=== PATIENT | female | born 1965 | race African-American/Black ===

== ENCOUNTER 2020-10-13 06:41 | Outpatient (CLI) | payer OTHER, SELFPAY ==
[2020-10-13 07:40] LABS: Alanine Aminotransferase 27 U/L (4-35); Albumin Level 4.2 g/dL (3.5-5.1); Alkaline Phosphatase 70 U/L (38-126); Anion Gap 5 mmol/L (8-16); Aspartate Amino Transferase 27 U/L (14-36); Bilirubin,Total 0.2 mg/dL (0.2-1.3); Blood Urea Nitrogen 23 mg/dL (7-17); Calcium 9.6 mg/dL (8.4-10.2); Carbon Dioxide 26 mmol/L (22-30); Chloride 108 mmol/L (98-107); Cholesterol 178 mg/dL (0-200); Estimated Glomerular Filt Rate 57; Glucose 104 mg/dL (65-105); HDL Direct 47 mg/dL; Potassium 4.3 mmol/L (3.4-5.0); Sodium 139 mmol/L (137-145); Triglycerides 96 mg/dL (<150)
[2020-10-13 07:46] LABS: Hemoglobin A1C 6.2 % (<5.7)
[2020-10-13 07:52] LABS: LDL Cholesterol Direct 97 mg/dL
[2020-10-16 03:18] LABS: Vitamin D 1,25 (OH)2 Total 55 pg/mL (18-72); Vitamin D2 1,25 (OH)2 43 pg/mL; Vitamin D3 1,25 (OH)2 12 pg/mL
== END 2020-10-13 06:42 | disposition home or self-care (01) ==
PROVIDERS: PCP Family Medicine; Visit Provider Family Medicine
DX: E55.9 Vitamin D deficiency, unspecified (principal); E66.9 Obesity, unspecified; K21.9 Gastro-esophageal reflux disease without esophagitis; Z79.899 Other long term (current) drug therapy; Z83.3 Family history of diabetes mellitus; R73.03 Prediabetes
CPT/HCPCS: 36415; 80053; 80061; 82652; 83036

== ENCOUNTER 2020-11-13 07:12 | Outpatient (CLI) | payer OTHER, SELFPAY | END 2020-11-13 07:13 | disposition home or self-care (01) | PROVIDERS: PCP Family Medicine; Visit Provider Student in an Organized Health Care Education/Training Program | DX: R39.9 Unspecified symptoms and signs involving the genitourinary system (principal) | CPT/HCPCS: 87086; 87088 ==

== ENCOUNTER 2021-02-11 11:20 | Outpatient (CLI) | payer OTHER, SELFPAY ==
[2021-02-11 12:44] LABS: Alanine Aminotransferase 26 U/L (4-35); Albumin Level 4.4 g/dL (3.5-5.1); Alkaline Phosphatase 75 U/L (38-126); Anion Gap 8 mmol/L (8-16); Aspartate Amino Transferase 28 U/L (14-36); Bilirubin,Total 0.4 mg/dL (0.2-1.3); Blood Urea Nitrogen 18 mg/dL (7-17); Calcium 9.5 mg/dL (8.4-10.2); Carbon Dioxide 25 mmol/L (22-30); Chloride 108 mmol/L (98-107); Cholesterol 178 mg/dL (0-200); Estimated Glomerular Filt Rate 57; Glucose 89 mg/dL (65-110); HDL Direct 41 mg/dL; Potassium 4.4 mmol/L (3.4-5.0); Sodium 141 mmol/L (137-145); Triglycerides 79 mg/dL (<150)
[2021-02-11 12:55] LABS: LDL Cholesterol Direct 93 mg/dL
[2021-02-11 13:38] LABS: Hemoglobin A1C 6.1 % (<5.7)
== END 2021-02-11 11:21 | disposition home or self-care (01) ==
PROVIDERS: PCP Family Medicine; Visit Provider Family Medicine
DX: E66.9 Obesity, unspecified (principal); R73.03 Prediabetes; E78.5 Hyperlipidemia, unspecified; Z79.899 Other long term (current) drug therapy
CPT/HCPCS: 36415; 80053; 80061; 83036

== ENCOUNTER 2021-04-04 08:19 | Outpatient (CLI) | payer OTHER, SELFPAY ==
--- NOTE | ~2021-04-04 | XR_ITS ---
XR tibia fibula LT 2V DATE: 04/04/2021 08:50 INDICATION: Lateral lumbar and lower leg pain TECHNIQUE: AP and lateral views COMPARISON: None FINDINGS: No fracture or dislocation, periosteal reaction or bone destruction. Normal alignment at th e knee and ankle joints. IMPRESSION: Negative Reviewed, dictated and finalized at location A. IMPRESSION: Negative
--- NOTE | ~2021-04-04 | XR_ITS ---
XR femur LT min 2V DATE: 04/04/2021 08:50 INDICATION: Lateral upper and lower leg pain TECHNIQUE: AP and lateral views COMPARISON: None FINDINGS: No fracture or dislocation, periosteal reaction or bone destruction. Normal alignment at th e left hip joint. IMPRESSION: Negative Reviewed, dictated and finalized at location A. IMPRESSION: Negative
== END 2021-04-04 08:20 | disposition home or self-care (01) ==
LOC: ANHIMG 08:22
PROVIDERS: PCP Family Medicine; Visit Provider Family Medicine
DX: M79.605 Pain in left leg (principal)
CPT/HCPCS: 73552; 73590

== ENCOUNTER 2021-06-23 07:05 | Outpatient (CLI) | payer OTHER, SELFPAY ==
[2021-06-23 07:39] LABS: Hematocrit 39.8 % (37.0-47.0); Hemoglobin 12.8 g/dL (12.0-15.0); Mean Corpuscular HGB Conc 32.2 g/dl (32-36); Mean Corpuscular Hemoglobin 27.2 pg (26-34); Mean Corpuscular Volume 84.5 fl (80-100); Platelet Count Result 273 k/mm3 (150-375); Red Blood Count 4.71 M/mm3 (4.2-5.4); Red Cell Distribution Width 16.6 % (11.5-14.5); White Blood Count 8.1 K/mm3 (4.5-10.0)
[2021-06-23 07:55] LABS: Alanine Aminotransferase 24 U/L (4-35); Albumin Level 4.4 g/dL (3.5-5.1); Alkaline Phosphatase 75 U/L (38-126); Anion Gap 9 mmol/L (8-16); Aspartate Amino Transferase 29 U/L (14-36); Bilirubin,Total 0.4 mg/dL (0.2-1.3); Blood Urea Nitrogen 15 mg/dL (7-17); Calcium 9.6 mg/dL (8.4-10.2); Carbon Dioxide 22 mmol/L (22-30); Chloride 109 mmol/L (98-107); Cholesterol 174 mg/dL (0-200); Estimated Glomerular Filt Rate > 60; Glucose 105 mg/dL (65-110); HDL Direct 42 mg/dL; Potassium 4.1 mmol/L (3.4-5.0); Sodium 140 mmol/L (137-145); Triglycerides 71 mg/dL (<150)
[2021-06-23 08:06] LABS: LDL Cholesterol Direct 104 mg/dL
[2021-06-23 08:22] LABS: Hemoglobin A1C 6.1 % (<5.7)
== END 2021-06-23 07:06 | disposition home or self-care (01) ==
PROVIDERS: PCP Family Medicine; Visit Provider Family Medicine
DX: E78.5 Hyperlipidemia, unspecified (principal); R73.03 Prediabetes; E66.9 Obesity, unspecified
CPT/HCPCS: 36415; 80053; 80061; 83036; 85027

== ENCOUNTER 2021-08-20 15:14 | Outpatient (CLI) | payer OTHER, SELFPAY ==
--- NOTE | ~2021-08-20 | MM_ITS ---
EXAMINATION: MM screening navarro BI w tomy HISTORY: Screening TECHNIQUE: Craniocaudal and mediolateral oblique 3-D tomosynthesis images were obtained and synthetic 2-D images were generated. CAD analysis was submitted and interpreted. COMPARISON: No prior mammogram is available for comparison at this institution. BREAST PARENCHYMAL COMPOSITION: The breasts are almost entirely fatty. FINDINGS: There is no evidence of suspicious mass, calcification, or architectural distortion to sugg est malignancy in either breast. There has been no suspicious interval change. IMPRESSION: 1. No mammographic evidence of malignancy. 2. Recommend routine screening mammography in one year. BI-RADS Category 1: Negative Reviewed, dictated and finalized at location A. IRATORY COORDINATOR
== END 2021-08-20 15:15 | disposition home or self-care (01) ==
LOC: ANHIMG 15:15
PROVIDERS: PCP Family Medicine; Visit Provider Family Medicine
DX: Z12.31 Encounter for screening mammogram for malignant neoplasm of breast (principal)
CPT/HCPCS: 77063; 77067

== ENCOUNTER 2021-10-23 06:37 | Outpatient (CLI) | payer OTHER, SELFPAY ==
[2021-10-23 08:01] LABS: Alanine Aminotransferase 25 U/L (6-35); Albumin Level 3.9 g/dL (3.5-5.1); Alkaline Phosphatase 72 U/L (38-126); Anion Gap 5 mmol/L (8-16); Aspartate Amino Transferase 29 U/L (14-36); Bilirubin,Total 0.3 mg/dL (0.2-1.3); Blood Urea Nitrogen 15 mg/dL (7-17); Calcium 8.7 mg/dL (8.4-10.2); Carbon Dioxide 25 mmol/L (22-30); Chloride 109 mmol/L (98-107); Cholesterol 172 mg/dL (0-200); Estimated Glomerular Filt Rate > 60; Glucose 96 mg/dL (65-110); HDL Direct 42 mg/dL; Sodium 139 mmol/L (137-145); Triglycerides 72 mg/dL (<150)
[2021-10-23 08:12] LABS: LDL Cholesterol Direct 94 mg/dL
== END 2021-10-23 06:38 | disposition home or self-care (01) ==
LOC: ANHLAB 06:40
PROVIDERS: PCP Family Medicine; Visit Provider Family Medicine
DX: E66.9 Obesity, unspecified (principal); E78.5 Hyperlipidemia, unspecified; R73.03 Prediabetes; R25.2 Cramp and spasm
CPT/HCPCS: 36415; 80053; 80061; 83036; 83735

== ENCOUNTER 2021-11-26 07:42 | Outpatient (CLI) | payer OTHER, SELFPAY ==
--- NOTE | 2021-12-07 11:45 | WPDHOMESLEEP ---
Sleep Study - Home Unattended Date of Study: 11/26/21 Ordering Provider: Ting Feliz DO Interpreting Provider: Payton Perez DO Home Sleep Study Type: Watch PAT Height: 1.5 m Weight: 104.326 kg Body Mass Index: 46.4 Neck Circumference (inches): 15 Reason for Sleep Study Wakes up from snoring, Gasping for air throughout the night. Sleep History The patient is a 56-year-old female with GERD who had a home sleep test ordered by her primary care physician for evaluation of sleep apnea. The patient occasionally awakens from sleep short of breath. She frequently awakens at night with heartburn, belching or cough. She constantly snores loud enough that others complain. She frequently has trouble sleeping when he has a cold. She occasionally wakes up gasping for air throughout the night. He frequently has breathing problems at night observed by herself or others. She occasionally sweats excessively at night. She denies having heart palpitations or irregular heartbeats during the night. She rarely falls asleep during the day but never while driving. She denies sleep paralysis and cataplexy. She rarely has trouble at school or work due to sleepiness. She denies feeling afraid of going to sleep. She rarely has nightmares. She occasionally remembers her dreams. She frequently has thoughts racing through her mind. She rarely feels sad or depressed. She frequently has anxiety. She occasionally has muscular tension. She denies noticing parts of her body jerk. She denies kicking during the night. She occasionally has crawling and aching feelings in her legs as well as leg pain during the night. She denies grinding her teeth during sleep and awakening with morning jaw pain. She denies being bothered by pain during the day and being awakened by pain during the night. She occasionally wakes up feeling stiff morning. She occasionally wakes up with sore achy muscles. She denies waking up with pain in the neck, spine and other joints. She goes to bed at 9:00 p.m. on weekdays and 10:00 p.m. on the weekends. The amount of time it takes for her to fall asleep is variable. She wakes up 4-5 times throughout the night for unknown reasons. It takes her 10-15 minutes to fall back asleep. She wakes up at 4:50 a.m. on weekdays and 7:00 a.m. on the weekends. She typically gets 7-8 hours of sleep per night. She will stay in bed for 10-15 minutes after waking up in the morning. He currently lives with her . She does not consume any caffeinated beverages within 2 hours of bedtime. She does not engage in physical exercise bedtime. She will watch television before falling asleep. She does not take naps in the afternoon or the evening. She denies tobacco use. She does drink alcohol. [facility] Past Medical History Medical History History of miscarriage Torn ligament ankle, Repaired. Surgical History Surgical History History of breast biopsy History of delivery History of dilation and curettage Rozet teeth removed Family History Family History Father No problems noted. Mother Diabetes mellitus Sibling Diabetes mellitus Social History Social History Alcohol intake: current Medications Home Medications Medication Instructions Recorded Confirmed Type cholecalciferol (vitamin D3) 25 25 mcg PO DAILY 11/12/20 10/29/21 History mcg (1,000 unit) capsule cranberry 400 mg capsule 400 mg PO DAILY 11/12/20 10/29/21 History multivitamin with minerals-folic tablet PO 06/22/21 10/29/21 History acid 200 mcg chewable tablet (Women's Multivitamin Gummies) omeprazole 20 mg capsule,delayed 20 mg PO DAILY #90 caps 06/22/21 10/29/21 Rx release fluconazole 150 mg ta
[2021-12-07 13:37] VITALS: BMI 46.4
== END 2021-11-27 11:14 | disposition home or self-care (01) ==
LOC: ANHCSM 07:43
PROVIDERS: PCP Family Medicine; Visit Provider Family Medicine
DX: G47.33 Obstructive sleep apnea (adult) (pediatric) (principal)
CPT/HCPCS: 95800

== ENCOUNTER 2022-01-29 00:14 | Day surgery (SDC) | payer OTHER, SELFPAY ==
[2022-01-20 09:46] VITALS: BMI 46.5
[2022-01-29 07:04] VITALS: BMI 47.0
[2022-01-29 07:06] VITALS: BP 147/93; PULSE 77; RESP 16; TEMP 36.3; O2SAT 100
[2022-01-29] MEDS: LACTATED RINGERS 1,000 ML 150 ML IV CONT (07:14)
--- NOTE | 2022-01-29 07:31 | P.PNAN_ITS ---
Anes - Initial Pre Proc Eval Procedure: Operation Date: 01/29/22 08:00 Proposed Procedures p Screening Colonoscopy - Camden Sims MD Date/Time: 01/29/22 07:31 Surgeon: Camden Sims MD Pre Op Diagnosis: neoplasm screening Patient Data Age: 56 Gender: F Height: 1.5 m Weight: 105.5 kg Last Vital Signs Temp 97.3 F L 01/29/22 07:06 Pulse 77 01/29/22 07:06 Resp 16 01/29/22 07:06 BP 147/93 H 01/29/22 07:06 Pulse Ox 100 01/29/22 07:06 Allergies Allergy/AdvReac Type Severity Reaction Status Date / Time No Known Allergies Allergy Verified 01/20/22 09:45 Home Medications Medication Instructions Recorded Confirmed Type sodium sul 1.479 gram-potas ch See Rx Instructions PO PER PKG DIR 11/19/21 Rx 0.188 gram-magnes sul 0.225 gram #24 tabs tablet (Sutab) omeprazole 20 mg capsule,delayed 20 mg PO DAILY 01/20/22 01/20/22 History release Patient hx anesthesia problems: none Family hx anesthesia problems: none Results Review: All pre-operative results and documents have been reviewed as part of the pre- operative evaluation. [facility] Past Medical History Medical History History of miscarriage Torn ligament ankle, Repaired. Surgical History Surgical History History of breast biopsy History of delivery History of dilation and curettage Grandy teeth removed Family History Family History Father No problems noted. Mother Diabetes mellitus Sibling Diabetes mellitus Social History Social History Smoking status: Never smoker Alcohol intake: current Drinks per week: 2 Substance use type: does not use Living arrangements: with family Spiritual care concerns: No Anes - Eval Final PreProcedure Day of Procedure 01/29/22 07:31 Patient weight: morbidly obese Heart: regular rate and rhythm Lungs: clear to auscultation Airway: Mallampati scale class III Neurological: alert and oriented Last oral intake: >/= 8 hours ASA classification: III Emergent: no Anesthetic plan: proceed Anesthesia type and monitoring: general GIVS and standard monitoring Results Review: All pre-operative results and documents have been reviewed as part of the pre- operative evaluation. Informed Consent: The patient's anesthetic plan and its attendant risks and benefits were discussed with the patient/family/POA. Questions were solicited and answers provided to the satisfaction of the patient/family/POA.
--- NOTE | 2022-01-29 07:46 | PM.HPGS ---
History of Present Illness History of Present Illness Consent: Risks, benefits, and alternatives have been discussed and questions answered. Patient agrees to proceed with procedure. Chief complaint: neoplasm screening Narrative: Jacquelyn Novak is a 56 year old female here for screening colonoscopy, last one 10 years ago Review of Systems Constitutional: Constitutional: Denies headache(s) and Denies weakness Eyes: Eyes: Denies blurry vision ENT: Reports Normal hearing present, Denies headache(s) and Denies neck pain Cardiovascular: Cardiovascular: Denies chest pain and Denies dyspnea Respiratory: Respiratory: Denies dyspnea Gastrointestinal: Gastrointestinal: Reports no additional gastrointestinal complaints Genitourinary: Genitourinary: Denies dysuria Musculoskeletal: Musculoskeletal: Denies neck pain Integumentary/Breasts: Skin/Breast: Denies dry skin Neurologic: Reports Normal hearing present, Denies headache(s) and Denies weakness Psychiatric: Psychiatric: Denies anxiety Endocrine: Endocrine: Denies change in body appearance Hematologic/Lymphatic: Hematologic/Lymphatic: Denies easy bleeding Allergic/Immunologic: Allergic/Immunologic: Denies urticaria PMFSH Past Medical History Medical History History of miscarriage Torn ligament ankle, Repaired. Surgical History Surgical History History of breast biopsy History of delivery History of dilation and curettage [place] teeth removed Family History Family History Father No problems noted. Mother Diabetes mellitus Sibling Diabetes mellitus Social History Social History Smoking status: Never smoker Alcohol intake: current Drinks per week: 2 Substance use type: does not use Living arrangements: with family Spiritual care concerns: No Meds Home Medications and Allergies Home Medications Medication Instructions Recorded Confirmed Type sodium sul 1.479 gram-potas ch See Rx Instructions PO PER PKG DIR 11/19/21 Rx 0.188 gram-magnes sul 0.225 gram #24 tabs tablet (Sutab) omeprazole 20 mg capsule,delayed 20 mg PO DAILY 01/20/22 01/20/22 History release Allergies Allergy/AdvReac Type Severity Reaction Status Date / Time No Known Allergies Allergy Verified 01/20/22 09:45 Vital Signs Vital Signs - 24 hr 01/29/22 07:06 Temperature 97.3 F L Pulse Rate 77 Respiratory Rate 16 Blood Pressure 147/93 H Pulse Oximetry 100 Exam Const: General: comfortable and no acute distress HENMT: General nose exam: Normal nares present Eyes: General: appearance normal, both eyes and all related structures Neck: Neck: no JVD Resp: Auscultation: clear to auscultation bilaterally Cardio: Rate: regular rate Rhythm: regular rhythm GI: Inspection: non-distended GI Palp: Yes Soft to palpation Skin: General skin exam: normal color Neuro: General: gait normal Speech: normal speech Extrem: General: normal to inspection Psych: Mental Status: mental status grossly normal Assessment and Plan Assessment and plan (1) Encounter for screening colonoscopy: Code(s): Z12.11 - Encounter for screening for malignant neoplasm of colon Status: Acute Assessment and Plan: colonoscopy
[2022-01-29 08:07] VITALS: BP 105/80; PULSE 78; RESP 16; O2SAT 97
[2022-01-29 08:17] VITALS: BP 107/80; PULSE 76; RESP 16; O2SAT 100
[2022-01-29 08:27] VITALS: BP 150/84; PULSE 70; RESP 16; O2SAT 100
--- NOTE | 2022-01-29 08:39 | SUR.PHASEII ---
Patient c/o left shoulder pain. Denies pain in chest but states shoulder hurts where she was laying on her side in procedure. VSS. Sinus rhythm noted. Patient denies other complaints. Notified Dr. Zheng and he assessed patient. Patient declined pain medication. States she wants to go home and see if repositioning and walking will help.
== END 2022-01-29 08:48 | disposition home or self-care (01) ==
PROVIDERS: PCP Family Medicine; Visit Provider Internal Medicine Gastroenterology
PROC: 0DJD8ZZ Inspection of Lower Intestinal Tract, Via Natural or Artificial Opening Endoscopic (ICD-10-PCS; CPT 45378; principal; 2022-01-29 08:00)
DX: Z12.11 Encounter for screening for malignant neoplasm of colon (principal); K64.8 Other hemorrhoids; E66.01 Morbid (severe) obesity due to excess calories; Z68.42 Body mass index [BMI] 45.0-49.9, adult
CPT/HCPCS: 45378; J2704; J7120

== ENCOUNTER 2022-02-19 08:52 | Outpatient (CLI) | payer OTHER, SELFPAY ==
[2022-02-19 20:37] LABS: Alanine Aminotransferase 34 U/L (6-35); Albumin Level 4.3 g/dL (3.5-5.1); Alkaline Phosphatase 84 U/L (38-126); Anion Gap 10 mmol/L (8-16); Aspartate Amino Transferase 36 U/L (14-36); Bilirubin,Total 0.3 mg/dL (0.2-1.3); Blood Urea Nitrogen 15 mg/dL (7-17); Calcium 9.9 mg/dL (8.4-10.2); Carbon Dioxide 26 mmol/L (22-30); Chloride 107 mmol/L (98-107); Cholesterol 161 mg/dL (0-200); Estimated Glomerular Filt Rate > 60; Glucose 91 mg/dL (65-110); HDL Direct 36 mg/dL; Sodium 143 mmol/L (137-145); Triglycerides 87 mg/dL (<150)
[2022-02-19 20:53] LABS: LDL Cholesterol Direct 84 mg/dL
== END 2022-02-19 08:53 | disposition home or self-care (01) ==
LOC: ANHGOSHLAB 08:54
PROVIDERS: PCP Family Medicine; Visit Provider Family Medicine
DX: E78.5 Hyperlipidemia, unspecified (principal); R73.03 Prediabetes; Z79.899 Other long term (current) drug therapy
CPT/HCPCS: 36415; 80053; 80061; 83036

== ENCOUNTER 2022-03-31 12:48 | Outpatient (CLI) | payer OTHER, SELFPAY | END 2022-03-31 12:49 | disposition home or self-care (01) | PROVIDERS: PCP Family Medicine; Visit Provider Nurse Practitioner | DX: R33.9 Retention of urine, unspecified (principal) | CPT/HCPCS: 87077; 87086; 87186 ==

== ENCOUNTER → 2022-05-05 13:56 | Outpatient (CLI) | payer OTHER, SELFPAY ==
--- NOTE | ~2022-05-05 | XR_ITS ---
EXAMINATION: XR chest 2V 05/05/2022 14:34 INDICATION: Hemoptysis PROCEDURE: 2 view chest COMPARISON: 02/13/2020 FINDINGS: The lungs are clear. The cardiomediastinal silhouette is within normal limits. There are no pleural effusions. There is no pneumothorax suspected. IMPRESSION: 1: NO ACUTE CARDIOPULMONARY DISEASE. Reviewed, dictated and finalized at location B. [employer]
== END ==
PROVIDERS: PCP Family Medicine; Visit Provider Family Medicine
DX: R04.2 Hemoptysis (principal)
CPT/HCPCS: 71046

== ENCOUNTER 2022-07-14 13:08 | Outpatient (CLI) | payer OTHER, SELFPAY ==
--- NOTE | ~2022-07-14 | XR_ITS ---
EXAMINATION: XR elbow RT min 3V DATE: 07/14/2022 13:16 INDICATION: Right elbow pain. TECHNIQUE: 4 views of right elbow were obtained. COMPARISON: None. FINDINGS: Bone alignment is normal. No fracture. Joint spaces are normal. There is an enthesophyte at the sublime tubercle of proximal ulna. No elbow joint effusion. IMPRESSION: 1. No fracture. Reviewed, dictated and finalized at location A. HNUT GLAZIER IMPRESSION: 1. No fracture.
== END 2022-07-14 13:09 ==
PROVIDERS: PCP Family Medicine; Visit Provider Family Medicine
DX: M25.521 Pain in right elbow (principal)
CPT/HCPCS: 73080

== ENCOUNTER 2022-07-14 13:17 | Outpatient (CLI) | payer OTHER, SELFPAY ==
[2022-07-14 20:09] LABS: Alanine Aminotransferase 54 U/L (6-35); Albumin Level 3.9 g/dL (3.5-5.1); Alkaline Phosphatase 70 U/L (38-126); Anion Gap 5 mmol/L (8-16); Aspartate Amino Transferase 52 U/L (14-36); Bilirubin,Total 0.5 mg/dL (0.2-1.3); Blood Urea Nitrogen 12 mg/dL (7-17); Calcium 9.3 mg/dL (8.4-10.2); Carbon Dioxide 29 mmol/L (22-30); Chloride 109 mmol/L (98-107); Estimated Glomerular Filt Rate > 60; Glucose 89 mg/dL (65-110); Potassium 3.9 mmol/L (3.4-5.0); Sodium 143 mmol/L (137-145)
[2022-07-14 21:32] LABS: Hemoglobin A1C 5.6 % (<5.7)
== END 2022-07-14 13:18 | disposition home or self-care (01) ==
LOC: ANHGOSHLAB 13:18
PROVIDERS: PCP Family Medicine; Visit Provider Family Medicine
DX: R73.03 Prediabetes (principal); Z79.899 Other long term (current) drug therapy
CPT/HCPCS: 36415; 80053; 83036

== ENCOUNTER 2022-09-07 16:32 | Emergency (ER) | payer OTHER, SELFPAY ==
--- NOTE | ~2022-09-07 | XR_ITS ---
EXAMINATION: XR thoracic spine 2V DATE: 09/07/2022 17:08 INDICATION: Thoracic back pain TECHNIQUE: AP, lateral and lateral swimmer's views of the thoracic spine were obtained. COMPARISON: None. FINDINGS: Bone alignment is normal. There is no fracture. There is mild loss of intervertebral disc s pace height in the midthoracic spine. Small degenerative osteophytes project from the anterior endpla elena of multiple vertebral bodies. IMPRESSION: 1. Mild thoracic spondylosis without acute findings. Reviewed, dictated and finalized at location F.
[2022-09-07 16:39] VITALS: BP 126/88; PULSE 84; RESP 16; TEMP 36.9; O2SAT 100
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
== END 2022-09-07 17:40 | disposition home or self-care (01) ==
PROVIDERS: Emergency Provider Nurse Practitioner Family; PCP Family Medicine
DX: Z04.1 Encounter for examination and observation following transport accident (principal); M54.6 Pain in thoracic spine
CPT/HCPCS: 72070; 99213; G0463

== ENCOUNTER 2022-10-12 15:11 | Outpatient (CLI) | payer OTHER, SELFPAY ==
--- NOTE | ~2022-10-12 | MM_ITS ---
EXAMINATION: MM screening navarro BI w tomy HISTORY: Screening mammogram TECHNIQUE: Craniocaudal and mediolateral oblique 3-D tomosynthesis images were obtained and synthetic 2-D images were generated. CAD analysis was submitted and interpreted. COMPARISON: 08/20/2021 BREAST PARENCHYMAL COMPOSITION: The breasts are almost entirely fatty. FINDINGS: No suspicious mass, calcification, or architectural distortion are identified in either norbert ast to suggest malignancy. There has been no suspicious interval change. IMPRESSION: 1. No mammographic evidence of malignancy. 2. Recommend routine screening mammography in one year. BI-RADS Category 1: Negative Reviewed, dictated and finalized at location A.
== END 2022-10-12 15:12 | disposition home or self-care (01) ==
PROVIDERS: Visit Provider Family Medicine
DX: Z12.31 Encounter for screening mammogram for malignant neoplasm of breast (principal)
CPT/HCPCS: 77063; 77067

== ENCOUNTER 2022-12-28 08:54 | Outpatient (CLI) | payer OTHER, SELFPAY ==
[2022-12-28 20:45] LABS: Appearance Urine Turbid (Clear); Bacteria Urine None Seen /hpf; Bilirubin Urine Negative (Negative); Blood Urine Negative (Negative); Color Urine Yellow (Yellow); Glucose Urine UA Negative (Negative); Ketones Urine Negative (Negative); Leukocyte Esterase Ur Negative LEU/UL (Negative); Nitrate Urine Negative (Negative); Non Pathogenic Casts 0-2; Protein Urine Trace mg/dL (Negative); RBC Urine 0-2 /hpf (0-2); Squamous Epithelial Cell Urine Occasional /hpf (Few); Urobilinogen Urine 0.2 mg/dL (<2.0); WBC Urine 0-5 /hpf; pH Urine 5.5 (5.0-9.0)
[2022-12-28 20:49] LABS: Add Urine Microscopic? YES
== END 2022-12-28 08:55 | disposition home or self-care (01) ==
LOC: ANHGOSHLAB 08:56
PROVIDERS: PCP Family Medicine; Visit Provider Family Medicine
DX: M54.50 Low back pain, unspecified (principal); R39.9 Unspecified symptoms and signs involving the genitourinary system
CPT/HCPCS: 81001

== ENCOUNTER 2023-01-04 11:51 | Outpatient (CLI) | payer OTHER, SELFPAY ==
--- NOTE | ~2023-01-04 | MR_ITS ---
MRI of the lumbar spine Clinical History: Radiculopathy Technique: Axial T2-weighted images, and sagittal T1-weighted, T2-weighted, and and T2 fat-sat images were acquired. Findings: There is no fracture or subluxation of the lumbar spine. Vertebral bodies maintain normal h eight and line. No suspicious bone signal abnormality seen. At L1-L2, there is no disc bulge or herniation. There is minimal facet hypertrophy. No central canal stenosis or neural foraminal narrowing. At L2-L3, there is no disc bulge or herniation. There is minimal facet hypertrophy. No spinal canal s tenosis or neural foraminal narrowing. At L3-L4, there is no disc bulge or herniation. There is mild facet arthropathy. No central canal mala nosis or neural foraminal narrowing. At L4-L5, there is no disc bulge or herniation. There is moderate to advanced facet arthropathy. No c entral canal stenosis or neural foraminal narrowing. At L5-S1, there is minimal central disc bulge and moderate facet arthropathy. No central canal stenos is or neural foraminal narrowing. Paravertebral soft tissues are unremarkable. Impression: Minimal degenerative spondylosis, as above. Reviewed, dictated and finalized at location . Impression: Minimal degenerative spondylosis, as above.
== END 2023-01-04 11:52 ==
PROVIDERS: PCP Family Medicine
DX: M47.26 Other spondylosis with radiculopathy, lumbar region (principal)
CPT/HCPCS: 72148

== ENCOUNTER 2023-04-25 12:21 | Emergency (ER) | payer OTHER, SELFPAY ==
--- NOTE | 2023-04-25 12:23 | ED.ABDPAIN ---
HPI - Abdominal Pain General Chief Complaint: Nausea/Vomiting/Diarrhea Stated Complaint: Stomach pain;Nausea Time Seen by Provider: 04/25/23 12:22 Source: patient Mode of arrival: ambulatory Limitations: no limitations History of Present Illness HPI narrative: Jacqueline is a 57-year-old female patient presenting to the clinic today with complaints of abdominal pain and nausea since this morning. She reports she was having some sinus congestion and has taken Claritin and zinc and then began having nausea and vomiting. She reports she is having pain over the mid upper abdomen. Pain is cramping- rates it a 7-8/10 and it is constant. Denies any urinary symptoms or loose stools. Last BM was this morning- no blood in stool. No abdomen surgery in past besides c-sections. Related Data Allergies Allergy/AdvReac Type Severity Reaction Status Date / Time No Known Allergies Allergy Verified 04/25/23 12:48 Review of Systems Review of Systems: Pertinent positives per HPI. Patient denies any fever, chills, rash, headache, visual changes, dizziness, cough, runny nose, sore throat, shortness of breath, chest pain, palpitations, diarrhea, constipation, or any urinary issues. [facility] Past Medical History Medical History History of miscarriage Torn ligament ankle, Repaired. Surgical History Surgical History History of breast biopsy History of delivery History of dilation and curettage [place] teeth removed Family History Family History Father No problems noted. Mother Diabetes mellitus Sibling Diabetes mellitus Social History Social History Social History: Caffeine- occasionally Smoking status: Never smoker Alcohol intake: current Drinks per week: 2 Alcohol use details: beer, wine Substance use type: does not use Lack of Transportation: No Lack of Food: Never True Current Housing: I Have Housing Concerned About Future Housing: No Difficulty Paying Gas/Electric Bills: No Difficulty Paying for Meds: No Currently Unemployed: No Education: Trade/Vocational Certificate Difficulty w/ Childcare or Family Care: No Spiritual care concerns: No Comments At the time of my signature, I reviewed and agree with the nursing past medical, surgical, social, and family history. There is no relevant family history pertinent to the patient complaint. Exam Narrative: General: Well-developed, obese, in no apparent distress. Head: Normocephalic, atraumatic. Cardio: Regular rate and rhythm, s1 and s2 normal, no murmur appreciated. Resp: Clear to auscultation bilaterally, no rhonchi, rales, wheezing or rubs. Abdomen: Soft, pliable, bowel sounds present in all quadrants, midepigastric abdominal tender to palpation, no organomegly, no CVAT tenderness. Course Course Emergency Course: Portions of this record may have been created with voice recognition software. Level of Care: Express Care Visit Vital Signs Vital signs: Vital signs reviewed MDM - Abdominal Pain MDM Narrative Medical decision making narrative: At the time of visit patient is resting comfortably on the exam table. Ondansetron 8 mg ODT given in the clinic today for nausea/vomiting. Patient pain decreased to 5/10 after taking the nausea medicine. Maalox and viscous lidocaine was then given as a GI cocktail. Symptoms improved after medications- 2/10. I suspect patient has gastritis. Will send in Rx for zofran and supportive measures were discussed with the patient and she voiced understanding. Return precautions were reviewed. Differential Diagnosis Differential diagnosis: Likely abdominal pain, acute appendicitis, calculus of kidney, constipation, diverticulitis, endometriosis,
[2023-04-25 12:31] VITALS: BP 140/96; PULSE 77; RESP 16; TEMP 35.9; O2SAT 99
[2023-04-25] MEDS: ONDANSETRON HCL ODT 4 MG TABLET 8 MG SUBLINGUAL (12:38)
[2023-04-25] MEDS: LIDOCAINE HCL 2% VISC SOLN 15 ML UDC PO (13:04)
[2023-04-25] MEDS: MAG HYDROX/AL HYDROX/SIMETH 30 ML UDC PO (13:04)
== END 2023-04-25 13:34 | disposition home or self-care (01) ==
PROVIDERS: Emergency Provider Nurse Practitioner Family; PCP Family Medicine
DX: K29.00 Acute gastritis without bleeding (principal)
CPT/HCPCS: 99213; A9270; G0463

== ENCOUNTER 2023-08-22 07:19 | Outpatient (CLI) | payer OTHER, SELFPAY ==
[2023-08-22 07:52] LABS: Hematocrit 41.7 % (37.0-47.0); Hemoglobin 13.1 g/dL (12.0-15.0); Mean Corpuscular HGB Conc 31.4 g/dl (32-36); Mean Corpuscular Hemoglobin 26.6 pg (26-34); Mean Corpuscular Volume 84.8 fl (80-100); Mean Platelet Volume 10.4 fl (7.4-10.4); Platelet Count Result 292 k/mm3 (150-375); Red Blood Count 4.92 M/mm3 (4.2-5.4); Red Cell Distribution Width 15.9 % (11.5-14.5); White Blood Count 6.5 K/mm3 (4.5-10.0)
[2023-08-22 07:59] LABS: Alanine Aminotransferase 27 U/L (6-35); Alkaline Phosphatase 71 U/L (38-126); Anion Gap 3 mmol/L (8-16); Aspartate Amino Transferase 30 U/L (14-36); Bilirubin,Total 0.3 mg/dL (0.2-1.3); Blood Urea Nitrogen 16 mg/dL (7-17); Calcium 9.1 mg/dL (8.4-10.2); Carbon Dioxide 24 mmol/L (22-30); Chloride 112 mmol/L (98-107); Cholesterol 144 mg/dL (0-200); Estimated Glomerular Filt Rate > 60; Glucose 97 mg/dL (65-110); HDL Direct 39 mg/dL; Potassium 4.1 mmol/L (3.4-5.0); Sodium 139 mmol/L (137-145); Triglycerides 99 mg/dL (<150)
[2023-08-22 08:10] LABS: LDL Cholesterol Direct 88 mg/dL
== END 2023-08-22 07:20 | disposition home or self-care (01) ==
LOC: ANHLAB 07:20
PROVIDERS: PCP Family Medicine; Visit Provider Family Medicine
DX: E78.5 Hyperlipidemia, unspecified (principal); E66.9 Obesity, unspecified; R73.03 Prediabetes; Z79.899 Other long term (current) drug therapy
CPT/HCPCS: 36415; 80053; 80061; 83036; 84443; 85027

== ENCOUNTER 2024-02-01 07:13 | Outpatient (CLI) | payer OTHER, SELFPAY ==
[2024-02-01 21:15] LABS: Progesterone <0.5 ng/mL
[2024-02-02 08:14] LABS: FSH 48.5 mIU/mL; LH 21.9 mIU/mL
[2024-02-13 02:04] LABS: Estradiol, Ultrasensitive 20 pg/mL
== END 2024-02-01 07:14 | disposition home or self-care (01) ==
LOC: ANHLAB 07:14
PROVIDERS: PCP Family Medicine; Visit Provider Obstetrics & Gynecology
DX: R23.2 Flushing (principal)
CPT/HCPCS: 36415; 82670; 83001; 83002; 84144; 84443

== ENCOUNTER 2024-03-01 07:58 | Outpatient (CLI) | payer OTHER, SELFPAY ==
[2024-03-01 13:42] LABS: Hematocrit 46.9 % (37.0-47.0); Hemoglobin 14.4 g/dL (12.0-15.0); Mean Corpuscular HGB Conc 30.7 g/dl (32-36); Mean Corpuscular Hemoglobin 26.8 pg (26-34); Mean Corpuscular Volume 87.3 fl (80-100); Mean Platelet Volume 11.5 fl (7.4-10.4); Platelet Count Result 281 k/mm3 (150-375); Red Blood Count 5.37 M/mm3 (4.2-5.4); Red Cell Distribution Width 17.5 % (11.5-14.5); White Blood Count 7.9 K/mm3 (4.5-10.0)
[2024-03-01 13:42] LABS: Alanine Aminotransferase 30 U/L (6-35); Albumin Level 4.2 g/dL (3.5-5.1); Alkaline Phosphatase 88 U/L (38-126); Anion Gap 9 mmol/L (4-12); Aspartate Amino Transferase 58 U/L (14-36); Bilirubin,Total 0.4 mg/dL (0.2-1.3); Blood Urea Nitrogen 18 mg/dL (7-17); Calcium 9.7 mg/dL (8.4-10.2); Carbon Dioxide 27 mmol/L (22-30); Chloride 104 mmol/L (98-107); Cholesterol 175 mg/dL (0-200); Estimated Glomerular Filt Rate > 60; Glucose 83 mg/dL (65-110); HDL Direct 43 mg/dL; Potassium 4.4 mmol/L (3.4-5.0); Sodium 140 mmol/L (137-145); Triglycerides 87 mg/dL (<150)
[2024-03-01 13:53] LABS: LDL Cholesterol Direct 108 mg/dL
[2024-03-01 14:33] LABS: Vitamin D 25 Hydroxy 28.9 ng/mL
[2024-03-01 14:38] LABS: Microalbumin Urine Random 120.9 mg/L (0-16.7)
[2024-03-01 14:47] LABS: Creatinine Urine 160.9 mg/dL; MALB Creatinine Ratio 75.1 mg/g (0-30)
[2024-03-01 16:21] LABS: Hemoglobin A1C 6.2 % (<5.7)
== END 2024-03-01 07:59 | disposition home or self-care (01) ==
LOC: ANHGOSHLAB 07:59
PROVIDERS: PCP Family Medicine; Visit Provider Nurse Practitioner
DX: Z00.00 Encounter for general adult medical examination without abnormal findings (principal); N18.9 Chronic kidney disease, unspecified; R73.03 Prediabetes; E55.9 Vitamin D deficiency, unspecified; E78.5 Hyperlipidemia, unspecified
CPT/HCPCS: 36415; 80053; 80061; 82043; 82306; 83036; 85027

== ENCOUNTER 2024-03-26 15:56 | Outpatient (NON) | payer OTHER, SELFPAY ==
[2024-03-26 19:10] LABS: Add Urine Microscopic? YES; Appearance Urine Clear (Clear); Bacteria Urine None Seen /hpf; Bilirubin Urine Negative (Negative); Blood Urine Negative (Negative); Color Urine Yellow (Yellow); Glucose Urine UA Negative (Negative); Ketones Urine Negative (Negative); Leukocyte Esterase Ur Negative LEU/UL (Negative); Nitrate Urine Negative (Negative); Protein Urine Trace mg/dL (Negative); RBC Urine 0-2 /hpf (0-2); Specific Grav Ur 1.022 (1.001-1.035); Squamous Epithelial Cell Urine Few /hpf (Few); WBC Urine 0-5 /hpf (0-3); pH Urine 5.5 (5.0-9.0)
== END 2024-03-26 15:57 | disposition home or self-care (01) ==
LOC: ANHGOSHLAB 15:58
PROVIDERS: PCP Family Medicine; Visit Provider Nurse Practitioner
DX: R35.0 Frequency of micturition (principal)
CPT/HCPCS: 81001

== ENCOUNTER 2024-04-23 13:02 | Outpatient (CLI) | payer OTHER, SELFPAY ==
--- NOTE | ~2024-04-23 | XR_ITS ---
XR hip LT 2V w AP pelvis Ordering provider: Meredith Ireland G[employer]AYER-C History: . M25.552 - Pain in left hip . Comparison: None. FINDINGS: BONES: No acute fracture or dislocation. HIP JOINT SPACES: Bilateral Mild osteoarthritic changes. SACROILIAC JOINT SPACES/LUMBAR SPINE: The sacroiliac joint spaces are normal. Normal visualized lower lumbar spine. PUBIC SYMPHYSIS: Normal. SOFT TISSUES: Normal. IMPRESSION: No acute osseous abnormality pelvis and left hip. Reviewed, dictated and finalized at location A. SAWYER
== END 2024-04-23 13:03 | disposition home or self-care (01) ==
PROVIDERS: PCP Family Medicine; Visit Provider Nurse Practitioner
DX: M25.552 Pain in left hip (principal)
CPT/HCPCS: 73502

== ENCOUNTER 2024-06-18 08:07 | Emergency (ER) | payer OTHER, SELFPAY ==
[2024-06-18 08:08] VITALS: BP 133/69; PULSE 90; RESP 16; TEMP 36.6; O2SAT 99
--- NOTE | 2024-06-18 09:45 | ED_ITS ---
HPI - Eye Problem General Chief complaint: Eye Problems Stated complaint: L EYE IRRITATION Time Seen by Provider: 06/18/24 09:45 Source: patient Mode of arrival: ambulatory Limitations: no limitations History of Present Illness HPI Narrative: This is a 59-year-old female that presents to the emergency department for left eye irritation. Ongoing over the last couple of days. Reports redness and abnormal discharge. No injuries. She does not wear contacts. She does were glasses. Denies fevers. Related Data Allergies Allergy/AdvReac Type Severity Reaction Status Date / Time No Known Allergies Allergy Verified 06/18/24 08:08 Review of Systems Review of Systems: CONSTITUTIONAL: Denies fever EYES: Reports redness, and discharge. Denies visual changes All systems reviewed & are unremarkable except as noted in HPI and below PMFSH Past Medical History Medical History History of miscarriage Torn ligament ankle, Repaired. Surgical History Surgical History H/O: hysterectomy 2003 - partial - has cervix and one ovary History of breast biopsy History of delivery History of dilation and curettage History of orthopedic surgery L ankle surgery [place] teeth removed Family History Family History Father No problems noted. Mother Diabetes mellitus Sibling Diabetes mellitus Social History Social History Social History: Caffeine- occasionally Smoking status: Never smoker Alcohol intake: current Drinks per week: 2 Alcohol use details: beer, wine Substance use: never Substance use type: does not use Do You Feel Safe in your Home?: Yes Lack of Transportation: No Lack of Food: Never True Current Housing: I Have Housing Concerned About Future Housing: No Difficulty Paying Gas/Electric Bills: No Difficulty Paying for Meds: No Currently Unemployed: No Education: Trade/Vocational Certificate Difficulty w/ Childcare or Family Care: No Living arrangements: with family Occupation/Education: occupation Gender identity (if verbalized by the patient): Female Sexual Orientation (if Verbalized by the Patient): Straight or Heterosexual Spiritual care concerns: No Exam Narrative: GENERAL: Well-appearing, well-nourished, and in no acute distress. HEAD: Normocephalic, atraumatic. EYES: PERRLA and EOMI. Eye pressures are 22 bilateral. Visual acuity 20/40 in each eye. Left eye with conjunctival injection. Mild swelling of the eyelids on the left EXTREMITIES: Normal range of motion. No edema. SKIN: Warm, dry, no rash. NEURO: No focal deficits. Alert and oriented x3. PSYCH: Normal mood and affect Course Course Emergency Course: Patient agrees with plan of care Vital Signs Vital signs: Vital Signs Temperature 97.9 F 06/18/24 08:08 Pulse Rate 90 06/18/24 08:08 Respiratory Rate 16 06/18/24 08:08 Blood Pressure 133/69 06/18/24 08:08 Pulse Oximetry 99 06/18/24 08:08 Oxygen Delivery Room Air 06/18/24 08:08 Temperature 97.9 F 06/18/24 08:08 Pulse Rate 90 06/18/24 08:08 Respiratory Rate 16 06/18/24 08:08 Blood Pressure 133/69 06/18/24 08:08 Pulse Oximetry 99 06/18/24 08:08 Oxygen Delivery Room Air 06/18/24 08:08 MDM - Eye Problem MDM Narrative Medical decision making narrative: Patient presents the emergency department for symptoms consistent with conjunctivitis. No visual changes. She is afebrile and nontoxic appearing. Will be started on topical antibiotics. Instructed to follow-up with her eye doctor. She was given warnings to return to the ER Differential Diagnosis Differential diagnosis: Likely corneal abrasion, conjunctivitis, periorbital cellulitis and subconjunctival hemorrhage Critical Care Time Critical Care Time Critical Care Time: No Discharge Plan Discharge Clinical Impression: Conjunctivitis Qualifiers: Conjunctivitis type: acute Acute conjunctivitis type: unspecified Laterality: left Qualified Code(s): H10.32 - Unspecified acute conjunctivitis, left eye Patient Disposition: Home, Self-Care Condition: Stable Instructions: Antibiotic Form, Conjunctivitis (ED) Additional Instructions: Return to the emergency department if you experience fever, visual changes, redness and swelling around your eye, or any other symptoms that are concerning to you Instill antibiotic eye ointment as prescribed Follow-up with your eye doctor Patient Language: Swedish Prescriptions: New erythromycin 5 mg/gram (0.5 %) ointment 0.5 inch LEFT EYE QID 7 Days Qty: 3.5 0RF No Action naproxen 500 mg tablet 500 mg PO DAILY PRN (Reason: pain) Qty: 60 0RF (DME) CPAP mask re-fit See Rx Instructions .Route .MEDSUPPLY Qty: 1 0RF Rx Instructions: As directed omeprazole 20 mg capsule,delayed release(DR/EC) 20 mg PO DAILY Qty: 90 1RF Rx Instructions: TAKE 1 CAPSULE BY MOUTH DAILY metformin 500 mg tablet 500 mg PO DAILY Qty: 90 1RF Rx Instructions: Take with your largest meal cyclobenzaprine 5 mg tablet 5 mg PO QHS PRN (Reason: muscle spasm) Qty: 30 0RF Follow-up/Referrals: Ting Feliz DO [Primary Care Provider] -
--- OUTSIDE RECORDS SUMMARY | 2024-06-24 16:03 | XMS_ITS | Encounter Summary ---
Author Organization [facility] Address [address] [place] [address] Care Team Providers Care Campaign Developer Name Role Phone Flaca Bernstein DO Primary Care Provider [phone] Reason for Visit * Auth/Cert Specialty Diagnoses / Procedures Referred By Marysol t Referred To Contact Procedures COLONOSCOPY SCREEN Referral ID Status Reason Start Date Expiration Date Visits Re quested Visits Authorized [id number] 1 1 Encounter Details Date Type Department Care Team (Latest Contact Info) Description 06/21/2016 9:03 AM RUBY ON RAILS ENGINEER - 06/21/2016 11:04 AM RUBY ON RAILS ENGINEER Hospital Encounter [facility] - Endoscopy Services [address] [place] [address] Ted Carlos MD [facility] [place] [id number] Surgery General Discharge Disposition: Home or Self Care Social History Tobacco Use Types Packs/Day Years Used Date Smoking Tobacco: Never Smokeless Tobacco: Never Alcohol Use Standard Drinks/Week Comments Yes 0 (1 standard drink = 0.6 oz pur e alcohol) occasional cocktail Sex and Gender Information Value Date Recorded Sex Assigned at Not on file Gender Identity Not on file Sexual Orientation Not on file documented as of this encounter Last Filed Vital Signs Vital Sign Reading Time Taken Comments Blood Pressure 130/74 06/21/2016 10:45 AM RUBY ON RAILS ENGINEER Pulse 86 06/21/2016 10:45 AM RUBY ON RAILS ENGINEER Temperature 36.2 ??C (97.2 ??F) 06/21/2016 10:[address] Respiratory Rate 18 06/21/2016 10:45 AM RUBY ON RAILS ENGINEER Oxygen Saturation 99% 06/21/2016 10:45 AM RUBY ON RAILS ENGINEER Inhaled Oxygen Concentration - - Weight 100.7 kg (222 lb) 06/21/2016 9:26 AM RUBY ON RAILS ENGINEER Height 149.9 cm (4' 11 ) 06/21/2016 9:26 AM RUBY ON RAILS ENGINEER Body Mass Index 44.84 06/21/2016 9:26 AM RUBY ON RAILS ENGINEER documented in this encounter Functional Status Functional Status Response Date of Assess ment Is person deaf or have serious hearing difficult y? No 06/21/2016 Is person blind or have serious difficulty seein g? No 06/21/2016 Does person have serious dif ficulty walking/climbing stairs? No 06/21/2016 Does person have difficulty dressing/bathing? No 06/21/2016 Does person have difficulty doing errands alone? No 06/21/2016 Cognitive Status Response Date of Assessm ent Does person have difficulty concentrating/remembering/making decisions? No 06/21/2016 documented as of this encounter Medications at Time of Discharge Medication Sig Dispensed Refills Start Date End Date omeprazole (PRILOSEC) 40 MG capsule Take 40 mg by mouth daily before breakfast vitamin D, ergocalciferol, (DRISDOL) 82157 UNITS capsule Take 50,000 Units by mouth every 7 days documented as of this encounter H&P Notes * Ted Carlos MD - 06/21/2016 9:56 AM CST ENDOSCOPY PRE-PROCEDURE MEDICAL HISTORY & PHYSICAL Today's Date: 06/21/2016 9:56 AM Jacquelyn Hurd 51 y.o. female Date of Service: 06/21/2016 BP 142/86 Pulse 85 Temp 97.6 ??F Resp 16 Wt 100.7 kg (222 lb) BMI 44.84 kg/m2 History: Past Medical History Diagnosis Date ??? GERD (gastroesophageal reflux disease) ??? Vitamin D deficiency No Known Allergies Prescriptions Prior to Admission Medication Sig Dispense Refill ??? omeprazole (PRILOSEC) 40 MG capsule Take 40 mg by mouth daily before breakfast ??? vitamin D, ergocalciferol, (DRISDOL) 45471 UNITS capsule Take 50,000 Units by mouth every 7 days Current Facility-Administered Medications Medication Dose Route Frequency Provider Last Rate Last Dose ??? 0.9% NaCl infusion Intravenous Continuous Ted Carlos MD 20 mL/hr at 06/21/16 0930 Physicial Exam: General appearance: alert, cooperative, no distress Heart: regular rhythm, normal S1 and S2, without murmurs, rubs or gallops Lungs: breath sounds normal and symmetric; no rales or wheezes Abdomen: soft without mass, non-tender, with normal bowel sounds Extremities: no clubbing, cyanosis or edema ASA Evaluation and Anesthesia Plan: Anesthesia administered per Anesthesia Department Indication(s) for Procedure: Colon Screen - average risk Procedure Planned: Colonoscopy Ted Carlos MD ON RAILS ENGINEER documented in this encounter Plan of Treatment Scheduled Orders Name Type Priority Associated Diagnoses Orde r Schedule ENDOSCOPY, COLON, SCREENING GI Routine ONCE for 1 Occur rences starting 06/21/2016 until 06/21/2016 documented as of this encounter Procedures Procedure Name Priority Date/Time Associated Diagnosis Comments COLONOSCOPY SCREEN 06/21/2016 9: 52 AM RUBY ON RAILS ENGINEER ENDOSCOPY, COLON, SCREENING Routine 06/21/2016 9:36 AM RUBY ON RAILS ENGINEER documented in this encounter Results * ENDOSCOPY, COLON, SCREENING (06/21/2016 9:36 AM RUBY ON RAILS ENGINEER) Report Endoscopy POC __ _ Patient Name: Jacquelyn Hurd Procedure Date: 06/21/2016 9:36 AM ? Date of : 1965 ?Admit Type: Outpatient Age: 51 ? Gender: Female Attending MD: Ted Carlos MD ?? __ _ Procedure: ? Colonoscopy Indications: ? Screening for colorectal malignant neoplasm Providers: ? Ted Carlos MD (Doctor) Referring MD: ?Flaca Bernstein (Referring MD) Medicines: ? Monitored Anesthesia Care Complications: ? No immediate complications. __ _ Procedure: ? Pre-Anesthesia Assessment: ? - Prior to the procedure, a History and Physical was ? performed, and patient medications and allergies were ? reviewed. The patient is competent. The risks and benefits ? of the procedure and the sedation options and risks were ? discussed with the patient. All questions were answered ? and informed consent was obtained. Patient identification ? and proposed procedure were verified by the physician and ? the anesthesiologist in the pre-procedure area. Mental ? Status Examination: alert and oriented. Airway ? Examination: normal oropharyngeal airway and neck ? mobility. Respiratory Examination: clear to auscultation. ? CV Examination: normal. Prophylactic Antibiotics: The ? patient does not require prophylactic antibiotics. Prior ? Anticoagulants: The patient has taken no previous ? anticoagulant or antiplatelet agents. ASA Grade ? Assessment: I - A normal, healthy patient. After reviewing ? the risks and benefits, the patient was deemed in ? satisfactory condition to undergo the procedure. The ? anesthesia plan was to use moderate sedation / analgesia ? (conscious sedation). Immediately prior to administration ? of medications, the patient was re-assessed for adequacy ? to receive sedatives. The heart rate, respiratory rate, ? oxygen saturations, blood pressure, adequacy of pulmonary ? ventilation, and response to care were monitored ? throughout the procedure. The physical status of the ? patient was re-assessed after the procedure. ? After I obtained informed consent, the scope was passed ? under direct vision. Throughout the procedure, the ? patient's blood pressure, pulse, and oxygen saturations ? were monitored continuously. The Colonoscope was ? introduced through the anus and advanced to the cecum, ? identified by appendiceal orifice and ileocecal valve. The ? colonoscopy was performed without difficulty. The patient ? tolerated the procedure well. The quality of the bowel ? preparation was excellent. ? Findings: ? The perianal and digital rectal examinations were normal. ? The entire examined colon appeared normal. __ _ ? Impression: ?- The entire examined colon is normal. ? - No specimens collected. Recommendation: ?- Discharge patient to home (ambulatory). ? - Resume previous diet. ? - Continue present medications. ? - Repeat colonoscopy in 10 years per protocol. ? - Return to GI office in 4 weeks. ? Procedure Code(s): ? --- Professional --- ? G0121, Colorectal cancer screening; colonoscopy on individual not ? meeting criteria for high risk ? --- Technical --- ? G0121, Colorectal cancer screening; colonoscopy on individual not ? meeting criteria for high risk Diagnosis Code(s): ? --- Professional --- ? Z12.11, Encounter for screening for malignant neoplasm of colon ? --- Technical --- ? Z12.11, Encounter for screening for malignant neoplasm of colon CPT copyright 2015 [employer]. All rights reserved. The codes documented in this report are preliminary and upon arborist climber review may be revised to meet current compliance requirements. Ted Carlos MD __ Ted Carlos MD 06/21/2016 10:23:28 AM This report has been signed electronically. Number of Addenda: 0 Note Initiated On: 06/21/2016 9:36 AM [facility] ENDOSCOPY 06/21/2016 9:36 AM RUBY ON RAILS ENGINEER Ted Carlos MD GI PROCEDURE ORDER [facility] ENDOSCOPY [place] [id number] documented in this encounter Visit Diagnoses Not on filedocumented in this encounter Administered Medications Inactive Administered Medications - up to 3 most recent administrations Medication Order MAR Action Action Date Dose Rate Site 0.9% NaCl infusion at 20 mL/hr, Intravenous, CONTINUOUS, Starting on Tue06/21/16 at 1000, Until Tue06/21/16 at 1204, Pre-procedure (GI) $ New Bag/Syringe 06/21/2016 9:30 AM RUBY ON RAILS ENGINEER 20 mL/h r 0.9% NaCl injection 3 mL 3 mL, Intracatheter, PRE-PROCEDURE MULTIPLE, Starting on Tue06/21/16 at 1033, Until Tue06/21/16 at 1204, For Saline Lock flushes if one is inserted for Bronchoscopy/Endoscopy procedure., Pre-procedure (GI) documented in this encounter Active and Recently Administered Medications Times are shown in RUBY ON RAILS ENGINEER. Scheduled Medication Order 06/19/2016 06/20/2016 06/21/2016 0.9% NaCl injection 3 mL 3 mL, Intracatheter, PRE-PROCEDURE MULTIPLE, Starting on Tue06/21/16 at 1033, Until Tue06/21/16 at 1204, For Saline Lock flushes if one is inserted for Bronchoscopy/Endoscopy procedure., Pre-procedure (GI) Continuous Medication Order 06/19/2016 06/20/2016 06/21/2016 0.9% NaCl infusion at 20 mL/hr, Intravenous, CONTINUOUS, Starting on Tue06/21/16 at 1000, Until Tue06/21/16 at 1204, Pre-procedure (GI) 0930 ($ New Bag/Syri nge - Provider: Shell Mccloud RN) documented in this encounter Care Teams Campaign Developer Relationship Specialty Start Date End Date Flaca Bernstein DO PCP - General Internal Medicine 06/21/16 documented as of this encounter
--- OUTSIDE RECORDS SUMMARY | 2024-06-24 16:03 | XMS_ITS | Encounter Summary ---
Author Organization [facility] Address [address] [place] [address] Care Team Providers Care Naturalist Name Role Phone Flaca Bernstein DO Primary Care Provider [phone] Reason for Visit * Auth/Cert Specialty Diagnoses / Procedures Referred By Marysol narvaez Referred To Contact Procedures COLONOSCOPY SCREEN Referral ID Status Reason Start Date Expiration Date Visits Re quested Visits Authorized [id number] 1 1 Encounter Details Date Type Department Care Team (Late st Contact Info) Description 06/21/2016 10:03 AM MANAGER CONCRETE Anesthesia Event [facility] - Endoscopy Services [address] [place] [address] Mago Shay, BUILDING CARPENTER-PARKING ASSISTANT [id number] [place] [address] [place] [phone] Anesthesia Record Procedure Summary Procedure Name Responsible Anesthesiologist Anesthesia Start Time Anesthesia Stop Time COLONOSCOPY 06/21/16 1003 06/21/16 1019 Events Date Time Event Comment 06/21/2016 0935 Out OR Start Data 1001 1003 PT Reassessment Patient and Vital Signs reassessed prior to induction. 1003 Elect Sign The providers l isted as staff are the responsible providers for the case. 1003 An Start 1004 Time Out Anesthesia part icipated in timeout at the time documented in the record by nursing 1019 Out OR Stop Data 1019 An Stop 1020 Handoff Checklist follo wed: 1. Identification of patient 2. Identification of responsible nurse 3. Discussion of pertinent medical history 4. Discussion of surgical/procedure course 5. Intraoperative anesthetic management and concerns 6. Expectations/plans for the early post-procedure period 7. Opportunity for questions and acknowledgement of report Meds Name Total lidocaine (XYLOCAINE) 2% injection (20 m g/ml) 30 mg propofol (DIPRIVAN) injection 10mg/ml (E NDO USE) 15 mL 0.9% NaCl infusion 0 mL * Agents Name O2 * Blood No blood administrations on file. Lines, Drains, and Airways Type Details Placement Removal Peripheral IV Date: 06/21/16; Time : 928; Orientation: Right; Placed By: Nabeel Orellana RN; Tolerance: Well 06/21/16928 by Shell Mccloud RN 06/21/16 1046 by Raghav Faclon RN documented in this encounter Social History Tobacco Use Types Packs/Day Years Used Date Smoking Tobacco: Never Smokeless Tobacco: Never Alcohol Use Standard Drinks/Week Comments Yes 0 (1 standard drink = 0.6 oz pur e alcohol) occasional cocktail Sex and Gender Information Value Date Recorded Sex Assigned at Not on file Gender Identity Not on file Sexual Orientation Not on file documented as of this encounter Functional Status Functional Status Response [...] No 06/21/2016 documented as of this encounter Progress Notes * Mago Shay APRN-PARKING ASSISTANT - 06/21/2016 10:21 AM CST ANESTHESIA POSTPROCEDURE EVALUATION Jacquelyn Meza is a 51 y.o. female Temp: 97.6 ??F Pulse: 78 Resp: 15 BP: 106/73 SpO2: 100 % Pain Rating Score #1: 0 Anesthesia Type: MAC Mental status: sufficiently recovered from acute administration of anesthesia to participate in theevaluation. Level of consciousness: awake No numbness, tingling or visual disturbances present. General appearance: well-appearing Respiratory function: natural airway. Cardiac: stable Pain: comfortable/acceptable PONV: None Postop hydration: adequate. Patient may be released from anesthesia care. Perioperative Complications: No value filed. ASA/AQI Tracking Events: No value filed. GER CONCRETE documented in this encounter Consult Notes * Jaspal Mago Maria G, BUILDING CARPENTER-PARKING ASSISTANT - 06/21/2016 9:36 AM CST Pre-anesthesia Evaluation Procedure(s): COLONOSCOPY Diagnosis: COLON MONITORING Vital Signs: Temp: 97.6 ??F (06/21 925) Pulse: 85 (06/21 925) Resp: 16 (06/21 925) BP: 142/86 (06/21 925) SpO2: 98 % (06/21 925) BMI: Estimated body mass index is 44.84 kg/(m^2) as calculated from the following: Height as of this encounter: 1.499 m (4' 11 ). Weight as of this encounter: 100.7 kg (222 lb). History: Past Medical History Diagnosis Date ??? GERD (gastroesophageal reflux disease) ??? Vitamin D deficiency Past Surgical History Procedure Laterality Date ??? Hysterectomy ??? section x2 ??? Breast biopsy Bilateral x2 ??? Endoscopy, upper ??? Colonoscopy with polypectomy reports that she has never smoked. She has never used smokeless tobacco. She reports that she drinks alcohol. She reports that she does not use illicit drugs. Allergies: has No Known Allergies. Medications: Home Medications for Outpatients: No current outpatient prescriptions on file. Home Medications for Inpatients: Prescriptions Prior to Admission Medication Sig Dispense Refill ??? omeprazole (PRILOSEC) 40 MG capsule Take 40 mg by mouth daily before breakfast ??? vitamin D, ergocalciferol, (DRISDOL) 82338 UNITS capsule Take 50,000 Units by mouth every 7 days Inpatient Medications: Current Facility-Administered Medications Medication Dose Route Frequency Provider Last Rate Last Dose ??? 0.9% NaCl infusion Intravenous Continuous Ted Carlos MD 20 mL/hr at 06/21/16 0930 Physical Exam: NPO status: no solids since midnight Oriented to person, place and time Airway: II Neck ROM: full Dental exam findings: normal/ok Pulmonary exam: breath sounds CTA Heart sounds: S1 S2 Review of Systems: Negative for anesthesia complications Positive for gastroesophageal reflux disease, poorly controlled Patient history unchanged. Plan for Anesthesia: Reviewed allergies, history and medications ASA Score: 2. Anesthesia plan: MAC Planned method of induction: intravenous Planned postop destination: endo Anesthesia plan, risks and benefits discussed with patient Anesthesia consent: obtained Plan accepted yes Discussed anesthesia plan with: PARKING ASSISTANT. GER CONCRETE documented in this encounter Plan of Treatment Not on file documented as of this encounter Visit Diagnoses Not on filedocumented in this encounter Administered Medications Inactive Administered Medications - up to 3 most recent administrations Medication Order MAR Action Action Date Dose Rate Site lidocaine (XYLOCAINE) 2 % injection PRN, Starting on Tue06/21/16 at 1005, Until Tue06/21/16 at 1019, Anesthesia Intra-op $ Given 06/21/2016 10:05 AM MANAGER CONCRETE 30 mg propofol (DIPRIVAN) injection CONTINUOUS PRN, Starting on Tue06/21/16 at 1005, Until Tue06/21/16 at 1019, Anesthesia Intra-op $ New Bag/Syringe 06/21/2016 10:05 AM MANAGER CONCRETE documented in this encounter Care Teams Naturalist Relationship Specialty Start Date End Date Flaca Bernstein DO PCP - General Internal Medicine 06/21/16 documented as of this encounter
--- OUTSIDE RECORDS SUMMARY | 2024-06-24 16:03 | XMS_ITS | Encounter Summary ---
Author Organization [facility] Address [address] [place] [address]. [place] [address] [place] [address] Care Team Providers Care Toll Operator Name Role Phone Unavailable Primary Care Provider Unavailabl e Encounter Details Date Type Department Care Team (Late st Contact Info) Description 06/21/[address] [facility] [facility] Physical Therapy [address], [address] [place] [address] Erasto Murillo, DPM [address] [facility] [address] [place] [address] Social History Tobacco Use Types Packs/Day Years Used Date Smoking Tobacco: Never Assessed Comments Unknown Sex and Gender Information Value Date Recorded Sex Assigned at Not on file Legal Sex Female 7:50 PM CDT Gender Identity Not on file Sexual Orientation Not on file documented as of this encounter Plan of Treatment Not on file documented as of this encounter Visit Diagnoses Diagnosis Pain in joint, ankle and foot documented in this encounter
--- OUTSIDE RECORDS SUMMARY | 2024-06-24 16:03 | XMS_ITS | Clinical Summary ---
Author Organization [facility] Address [address] [place] [address]. [place], [place] [id number] [place] [address] Care Team Providers Care Advisor To Command In Combat Name Role Phone Unavailable Primary Care Provider Unavailabl e Social History Tobacco Use Types Packs/Day Years Used Date Smoking Tobacco: Never Assessed Comments Unknown Sex and Gender Information Value Date Recorded Sex Assigned at Not on file Legal Sex Female 7:50 PM CDT Gender Identity Not on file Sexual Orientation Not on file Plan of Treatment Health Maintenance Due Date Last Done Comments Cervical Cancer Screening Pa p Smear (Age 30 to 64) Every 3 Years 1966 Colorectal Cancer Screening Colonoscopy (10 Years) 1966 Annual Physical 1969 Hepatitis C 1984 DTaP, Tdap and Td Vaccines ( 1 - Tdap) 1985 Hepatitis B Vaccines (1 of 3 - 19+ 3-dose series) 1985 Cervical Cancer Screening Pa p with HPV Testing (Age 30 to 64) Every 5 Years 1996 Cervical Cancer Screening with HPV 1996 Mammogram Screening 2006 Zoster Vaccines (1 of 2) 2016 COVID-19 Vaccine (2023-2 5 season) 2024 Influenza Adult (#1) 2024 Meningococcal Vaccine Aged Out No seng sadie eligible based on patient's age to complete this topic Pneumococcal Vaccine: Pediat rics (0 to 5 Years) and At-Risk Patients (6 to 64 Years) Aged Out No longer eligible b ased on patient's age to complete this topic RSV Immunizations Under 20 Months Aged Out No longer eligible based on patient's age to complete this topic
--- OUTSIDE RECORDS SUMMARY | 2024-06-24 16:03 | XMS_ITS | Encounter Summary ---
Author Organization [facility] Address [address] [place] [address] Care Team Providers Care Mother Repairer Name Role Phone Flaca Bernstein DO Primary Care Provider [phone] Reason for Visit * Auth/Cert Specialty Diagnoses / Procedures Referred By Marysol t Referred To Contact Procedures COLONOSCOPY SCREEN Referral ID Status Reason Start Date Expiration Date Visits Re quested Visits Authorized [id number] 1 1 Encounter Details Date Type Department Care Team (Late st Contact Info) Description 06/21/2016 10:00 AM DIRECTOR OF CASINO MARKETING - 06/21/2016 10:30 AM DIRECTOR OF CASINO MARKETING Surgery [facility] - Endoscopy Services [address] [place] [id number] Ted Carlos MD [address] [place], [place] [id number] COLONOSCOPY Surgery Details Date/Time Status Location OR Service Patient Class Case Class Case Type Trauma Case? 06/21/2016 10:00 AM Posted [facility] ENDO ENDO 03 Gastroenterology Surgery Day Care Elective > 5 days Panel 1 Procedure LRB Anes Op Region Wound Class Comments COLONOSCOPY MAC Clean Contaminated Surgeon Surgeon Role Service Panel Ted Carlos MD Primary Gastroenterology 1 documented in this encounter Social History Tobacco [...] Comments Blood Pressure 130/74 06/21/2016 10:45 AM DIRECTOR OF CASINO MARKETING Pulse 86 06/21/2016 10:45 AM DIRECTOR OF CASINO MARKETING Temperature 36.2 ??C (97.2 ??F) 06/21/2016 10:[address] Respiratory Rate 18 06/21/2016 10:45 AM DIRECTOR OF CASINO MARKETING Oxygen Saturation 99% 06/21/2016 10:45 AM DIRECTOR OF CASINO MARKETING Inhaled Oxygen Concentration - - Weight 100.7 kg (222 lb) 06/21/2016 9:26 AM DIRECTOR OF CASINO MARKETING Height 149.9 cm (4' 11 ) 06/21/2016 9:26 AM DIRECTOR OF CASINO MARKETING Body Mass Index 44.84 06/21/2016 9:26 AM DIRECTOR OF CASINO MARKETING documented in this encounter Functional Status Functional [...] daily before breakfast vitamin D, ergocalciferol, (DRISDOL) 51566 UNITS capsule Take 50,000 Units by mouth [...] before breakfast ??? vitamin D, ergocalciferol, (DRISDOL) 57970 UNITS capsule Take 50,000 Units by mouth [...] risk Procedure Planned: Colonoscopy Ted Carlos MD CTOR OF CASINO MARKETING documented in this encounter Plan of Treatment Scheduled Orders Name Type Priority Associated Diagnoses Orde r Schedule ENDOSCOPY, COLON, SCREENING GI Routine ONCE for 1 Occur rences starting 06/21/2016 until 06/21/2016 documented as of this encounter Procedures Procedure Name Priority Date/Time Associated Diagnosis Comments COLONOSCOPY SCREEN 06/21/2016 9: 52 AM DIRECTOR OF CASINO MARKETING ENDOSCOPY, COLON, SCREENING Routine 06/21/2016 9:36 AM DIRECTOR OF CASINO MARKETING documented in this encounter Results * ENDOSCOPY, COLON, SCREENING (06/21/2016 9:36 AM DIRECTOR OF CASINO MARKETING) Report Endoscopy POC __ _ Patient Name: [...] malignant neoplasm of colon CPT copyright 2015 [employer]. All rights reserved. The codes documented in this report are preliminary and upon patient services specialist review may be revised to meet current compliance requirements. Ted Carlos MD __ Ted Carlos MD 06/21/2016 10:23:28 AM This report has been signed electronically. Number of Addenda: 0 Note Initiated On: 06/21/2016 9:36 AM [facility] ENDOSCOPY 06/21/2016 9:36 AM DIRECTOR OF CASINO MARKETING Ted Carlos MD GI PROCEDURE ORDER [facility] ENDOSCOPY [place] [id number] documented in this encounter Visit Diagnoses Not on filedocumented in this encounter Administered Medications Inactive Administered Medications - up to 3 most recent administrations Medication Order MAR Action Action Date Dose Rate Site 0.9% NaCl infusion at 20 mL/hr, Intravenous, CONTINUOUS, Starting on 06/21/16 at 1000, Until Tue06/21/16 at 1204, Pre-procedure (GI) $ New Bag/Syringe 06/21/2016 9:30 AM DIRECTOR OF CASINO MARKETING 20 mL/h r 0.9% NaCl injection 3 mL 3 mL, Intracatheter, PRE-PROCEDURE MULTIPLE, Starting on Tue06/21/16 at 1033, Until Tue06/21/16 at 1204, For Saline Lock flushes if one is inserted for Bronchoscopy/Endoscopy procedure., Pre-procedure (GI) documented in this encounter Active and Recently Administered Medications Times are shown in DIRECTOR OF CASINO MARKETING. Scheduled Medication Order 06/19/2016 06/20/2016 06/21/2016 0.9% [...] RN) documented in this encounter Care Teams Mother Repairer Relationship Specialty Start Date End Date Flaca Bernstein DO PCP - General Internal Medicine 06/21/16 documented as of this encounter
--- OUTSIDE RECORDS SUMMARY | 2024-06-24 16:03 | XMS_ITS | Encounter Summary ---
Author Organization [facility] Address [address] [place] [address] Care Team Providers Care Fur Liner Name Role Phone Unavailable Primary Care Provider Unavailabl e Encounter Details Date Type Department Care Team (Late st Contact Info) Description 03/19/2002 Orders Only [facility] [address] [place] [address] ProviderTiti MD Social History Tobacco Use Types Packs/Day Years Used Date Smoking Tobacco: Never Assessed Sex and Gender Information Value Date Recorded Sex Assigned at Not on file Gender Identity Not on file Sexual Orientation Not on file documented as of this encounter Plan of Treatment Not on file documented as of this encounter Procedures Procedure Name Priority Date/Time Associated Diagnosis Comments GROSS + MICRO EXAM [facility] 06/28/2002 1: 37 PM WEBFED OFFSET PRESS OPERATOR GROSS + MICRO EXAM [facility] 03/19/2002 10 :55 AM CDT documented in this encounter Results * GROSS + MICRO EXAM (06/28/2002 1:37 PM WEBFED OFFSET PRESS OPERATOR) Result CASE NUMBER [id number] Comment: ORDERING PHYSICIAN ??ALISON DUDLEY SPECIMEN TYPE ?Uterus w/wo tubes Date ? 06/28/2002 Physician ?Brijesh, T. Gross Description ? The specimen is received in a single formalin-filled container labeled with the patient's name and uterus without cervix, right tube and ovary and old scar . ??The specimen consists of a uterus without attached cervix with a right ovary and attached somewhat disrupted right fallopian tube and a small portion of the left fallopian tube. ?? The uterus weighs 310 grams and measures 11.0 x 12.7 x 7.5 cm. ??The external surface is smooth, pink-sanchez and distorted by some protruding nodules. ??The endometrial canal is distorted secondary to large firm white whorled nodules extending the length of the myometrium, the largest on the right side. ??The endometrial canal measures 7.0 cm. in length and 1.0 cm. in diameter with a thickness of 0.5 cm. ??There is a single soft smooth pink-sanchez polyp protruding into the lower half of the posterior wall of the endometrial cavity which measures 1.1 x 0.5 x 0.4 cm. ??There are no other masses or lesions identified within the endometrial cavity. ??The myometrium measures 7.0 cm. in greatest thickness. ??There are multiple nodules present within the myometrium which are firm, white and whorled and range from 2.0 to 6.5 cm. in greatest dimensions. ??There are no areas of hemorrhage or necrosis in any of the nodules. ??The right fallopian tube measures 4.0 cm. in length and 0.5 cm. in diameter. ??This fallopian tube appears to be disrupted. ??The external surface is smooth and pink-sanchez. ??The attached ovary measures 3.0 x 2.5 x 1.5 cm. ??The external surface is smooth, pink-sanchez and wrinkled. ??The ovary is serially sectioned and the cut surface reveals multiple cystic structures some filled with clear reddish fluid, the largest measuring 0.5 cm. in greatest dimensions. ?? There are also firm bright yellow, irregular areas most likely representing corpus luteum. ??There appears to be a very small segment of the left fallopian tube measuring 0.5 cm. in length and 0.5 cm. in diameter. ??The outer surface is smooth and sanchez. ??No left ovary is present. ??Cell Tuber Hand sections are submitted as follows ??cassette A, endometrial polyp ??cassette B, anterior endometrium ??cassette C, posterior endometrium ??cassettes D and E, customer operations representative sections of white whorled nodules ??cassette F, right fallopian tube and ovary ?? cassette G, left potential fallopian tube. Also present within the container is a single ellipse of skin with underlying soft yellow lobulated adipose tissue. ??The skin measures 9.5 x 1.5 cm. and the underlying adipose tissue extends a depth of 2.2 cm. The skin surface is dark brown and wrinkled. ??The underlying adipose tissue is soft and yellow lobulated. ??There appears to be a white fibrous band in the deep surface of the underlying adipose tissue which measures 6.0 cm. in length and 0.1 cm. in diameter. ??The specimen is serially sectioned and is unremarkable. ??Cell Tuber Hand sections are submitted in cassettes H and I. SNR/bk Microscopic Exam ? Sections of the endometrium show secretory endometrium with dilated, benign endometrial glands with luminal secretions. ??A small benign endometrial polyp is seen. ??Sections of the uterine fibroids show proliferation of benign smooth muscle cells in fascicles. ??Sections of the right ovary show small follicular cysts. ??Sections of the fallopian tube tissue are unremarkable. ??Sections of the skin the soft tissue show scar with fibrosis. ??There is no evidence of malignancy. MC/bk Diagnosis ?I. ??Uterus without cervix, right tube and ovary, old scar, ?resection ?A. ??Secretory endometrium with a small endometrial polyp. ?B. ??Leiomyomata. ?C. ??Right ovary with small follicular cysts. ?D. ??Unremarkable fallopian tube. ?E. ??Skin and soft tissue with scar. Campaign Consultant ? bk Pathologist ?Vannessa Ho M.D. / Daniela Mar M.D. Snomed. ?06/29/2002 1318 <5> CPT code ? 51044, 39179 MISCELLANEOUS SAMPLES / Unknown 06/28/2002 1:37 PM WEBFED OFFSET PRESS OPERATOR 06/28/2002 1:38 PM WEBFED OFFSET PRESS OPERATOR Historical Provider LAB - PATHOLOGY/C YTOLOGY ORDERABLES * GROSS + MICRO EXAM (03/19/2002 10:55 AM CDT) Result CASE NUMBER [id number] Comment: ORDERING PHYSICIAN ??ALISON DUDLEY SPECIMEN TYPE ?Endometrial Curetti Date ? 03/19/2002 Physician ?Brijesh Gross Description ? The specimen is received in formalin, labeled with the patient's name, and `endometrial curettings' and consists of multiple deep red nguyen tissue fragments that are soft in consistency and admixed with blood. ?? The entire specimen is submitted in ??cassettes A through C. ?/ [facility] Microscopic Exam ? Microscopic examination of sections labeled A, B and C reveal multiple fragments of endometrial mucosa mixed with moderate quantities of blood. ??The fragments demonstrate a proliferative pattern with tubular glands lined by a columnar epithelium that shows mitotic activity. ??The fragments also focally show hemorrhage into the stroma with focal stromal reactive changes. ??No malignancy is identified. ??No evidence of polyp formation is seen. RT/bk Diagnosis ?I. ??Endometrial curettings ?A. ??Proliferative endometrium with lytic change. Campaign Consultant ? bk Pathologist ?Umang Mar M.D. Snomed. ?03/20/2002 1100 <3> CPT code ? 59017 MISCELLANEOUS SAMPLES / Unknown 03/19/2002 10:55 AM CDT 03/19/2002 10:55 AM CDT Historical Provider LAB - PATHOLOGY/C YTOLOGY ORDERABLES documented in this encounter Visit Diagnoses Not on filedocumented in this encounter
--- OUTSIDE RECORDS SUMMARY | 2024-06-24 16:03 | XMS_ITS | Clinical Summary ---
Author Organization [facility] Address [address] [place] [address] Care Team Providers Care Vmware Architect Name Role Phone Flaca Bernstein DO Primary Care Provider [phone] Source Comments [facility],non-[facility] Affiliates and Associated Physician Practices is amultiple site organization consisting of ambulatory clinics and hospital sitesin [place], [place], [place] and [place]. This disclosure is being madepursuant to the Care Everywhere program and may not contain all information available regarding this patient. Last updated 18.[facility] Allergies No known active allergies Medications * Be aware that medications may not be up to date on this document. Alwaysverify current medications with the patient. Medication Sig Dispensed Refills Start Date End Date Status omeprazole (PRILOSEC) 40 MG capsule Take 40 mg by mouth daily before breakfast Active vitamin D, ergocalciferol, (DRISDOL) 81035 UNITS capsule Take 50,000 Units by mouth every 7 days Active Active Problems No known active problems Social History Tobacco Use Types Packs/Day Years Used Date Smoking Tobacco: Never Smokeless Tobacco: Never Alcohol Use Standard Drinks/Week Comments Yes 0 (1 standard drink = 0.6 oz pur e alcohol) occasional cocktail Sex and Gender Information Value Date Recorded Sex Assigned at Not on file Gender Identity Not on file Sexual Orientation Not on file Last Filed Vital Signs Vital Sign Reading Time Taken Comments Blood Pressure 130/74 06/21/2016 10:45 AM CLINICAL APPEALS RN Pulse 86 06/21/2016 10:45 AM CLINICAL APPEALS RN Temperature 36.2 ??C (97.2 ??F) 06/21/2016 10:[address] Respiratory Rate 18 06/21/2016 10:45 AM CLINICAL APPEALS RN Oxygen Saturation 99% 06/21/2016 10:45 AM CLINICAL APPEALS RN Inhaled Oxygen Concentration - - Weight 100.7 kg (222 lb) 06/21/2016 9:26 AM CLINICAL APPEALS RN Height 149.9 cm (4' 11 ) 06/21/2016 9:26 AM CLINICAL APPEALS RN Body Mass Index 44.84 06/21/2016 9:26 AM CLINICAL APPEALS RN Plan of Treatment Health Maintenance Due Date Last Done Comments COLOGUARD (AGES 45-75) - COL ON CA SCREENING 1966 CT COLONOGRAPHY - COLON CA SCREENING 1966 FIT - COLON CA SCREENING 1966 FLEX SIG - COLON CA SCREENING 1966 LIPID TESTING 1966 MAMMOGRAM 1966 PAP SMEAR 1966 HIV SCREENING 1981 HEPATITIS C SCREENING 05/16/1984 DTAP/TDAP/TD VACCINES (1 - Tdap) 1985 HEPATITIS B VACCINE (1 of 3 - 19+ 3-dose series) 1985 PNEUMOCOCCAL VACCINE 50+ (1 of 1 - PCV) 2016 ZOSTER VACCINE (1 of 2) 2016 COVID-19 VACCINE ( - 2023-2 5 season) 2024 INFLUENZA VACCINE (#1) 2024 DEPRESSION SCREENING 06/13/2024 COLON MONITORING 06/21/2026 06/21/2016, 06/21/2016 COLONOSCOPY - COLON CA SCREENING 06/21/2026 06/21/2016, 06/21/2016 Colorectal Cancer Screening 06/21/2026 HIB VACCINE Aged Out No longer eligi ble based on patient's age to complete this topic HPV VACCINE Aged Out No longer eligi ble based on patient's age to complete this topic MENINGOCOCCAL (Group B) VACCINE Aged Out No longer eligible b ased on patient's age to complete this topic MENINGOCOCCAL VACCINE Aged Out No seng sadie eligible based on patient's age to complete this topic PNEUMOCOCCAL VACCINE Aged Out No long er eligible based on patient's age to complete this topic Procedures Procedure Name Priority Date/Time Associated Diagnosis Comments ENDOSCOPY, COLON, SCREENING Routine 06/21/2016 9:36 AM CLINICAL APPEALS RN from Last 3 Months or Most Recently Relevant to Health Maintenance Results * ENDOSCOPY, COLON, SCREENING (06/21/2016 9:36 AM CLINICAL APPEALS RN) Report Endoscopy POC __ _ Patient Name: [...] malignant neoplasm of colon CPT copyright 2015 [employer]. All rights reserved. The codes documented in this report are preliminary and upon emergency medical technician/driver review may be revised to meet current compliance requirements. Ted Carlos MD __ Ted Carlos MD 06/21/2016 10:23:28 AM This report has been signed electronically. Number of Addenda: 0 Note Initiated On: 06/21/2016 9:36 AM [facility] 06/21/2016 9:36 AM CLINICAL APPEALS RN Ted Carlos MD GI PROCEDURE ORDER BRENDEN Performing Organization Address City/State/[facility] Co de Phone Number [facility] [place] [address] from Last 3 Months or Most Recently Relevant to Health Maintenance Care Teams Vmware Architect Relationship Specialty Start Date End Date Flaca Bernstein DO PCP - General Internal Medicine 06/21/16
--- OUTSIDE RECORDS SUMMARY | 2024-06-24 16:03 | XMS_ITS | Patient Health Summary ---
Author Organization [facility] Address [address] [place] [address] Care Team Providers Care Ingredient Handler Name Role Phone Flaca Bernstein DO Primary Care Provider [phone] Note from [facility],non-owned Affiliates and Associated Physician Practices is amultiple site organization consisting of ambulatory clinics and hospital sitesin [place], [place] and [place]. This disclosure is being madepursuant to the Care Everywhere program and may not contain all information available regarding this patient. Last updated 18.[facility] Allergies No known active allergies Medications * Be aware that medications may not be up to date on this document. Alwaysverify current medications with the patient. * omeprazole (PRILOSEC) 40 MG capsule Take 40 mg by mouth daily before breakfast * vitamin D, ergocalciferol, (DRISDOL) 83284 UNITS capsule Take 50,000 Units by mouth every 7 days Active Problems No known active problems Social [...] Comments Blood Pressure 130/74 06/21/2016 10:45 AM OCCUPATIONAL THERAPY AIDES TEACHER Pulse 86 06/21/2016 10:45 AM OCCUPATIONAL THERAPY AIDES TEACHER Temperature 36.2 ??C (97.2 ??F) 06/21/2016 10:[address] Respiratory Rate 18 06/21/2016 10:45 AM OCCUPATIONAL THERAPY AIDES TEACHER Oxygen Saturation 99% 06/21/2016 10:45 AM OCCUPATIONAL THERAPY AIDES TEACHER Inhaled Oxygen Concentration - - Weight 100.7 kg (222 lb) 06/21/2016 9:26 AM OCCUPATIONAL THERAPY AIDES TEACHER Height 149.9 cm (4' 11 ) 06/21/2016 9:26 AM OCCUPATIONAL THERAPY AIDES TEACHER Body Mass Index 44.84 06/21/2016 9:26 AM OCCUPATIONAL THERAPY AIDES TEACHER Procedures * COLONOSCOPY SCREEN(Performed 06/21/2016) * ENDOSCOPY, COLON, SCREENING(Performed 06/21/2016) * GROSS + MICRO EXAM(Performed 06/28/2002) * GROSS + MICRO EXAM(Performed 03/19/2002) Results * ENDOSCOPY, COLON, SCREENING (06/21/2016 9:36 AM OCCUPATIONAL THERAPY AIDES TEACHER) Report Endoscopy POC __ _ Patient Name: Jacquelyn Woodardandrewtucker Procedure Date: 06/21/2016 9:36 AM ? Date [...] malignant neoplasm of colon CPT copyright 2015 [employer]. All rights reserved. The codes documented in this report are preliminary and upon residential assistant review may be revised to meet current compliance requirements. Ted Carlos MD __ Ted Carlos MD 06/21/2016 10:23:28 AM This report has been signed electronically. Number of Addenda: 0 Note Initiated On: 06/21/2016 9:36 AM [facility] 06/21/2016 9:36 AM OCCUPATIONAL THERAPY AIDES TEACHER Ted Carlos MD GI PROCEDURE ORDER BRENDEN [facility] [place] [address] * GROSS + MICRO EXAM (06/28/2002 1:37 PM OCCUPATIONAL THERAPY AIDES TEACHER) Only the most recent of2 resultswithin the time period is included. Result CASE NUMBER [id number] Comment: ORDERING PHYSICIAN ??ALISON DUDLEY SPECIMEN TYPE ?Uterus w/wo tubes Date ? 06/28/2002 Physician ?Onel Dudley Gross Description ? The specimen is received [...] and sanchez. ??No left ovary is present. ??Gis Geographer sections are submitted as follows ??cassette A, endometrial polyp ??cassette B, anterior endometrium ??cassette C, posterior endometrium ??cassettes D and E, marketing representative sections of white whorled nodules ??cassette [...] specimen is serially sectioned and is unremarkable. ??Gis Geographer sections are submitted in cassettes H and [...] ?E. ??Skin and soft tissue with scar. Armored Service Technician ? bk Pathologist ?Vannessa Ho M.D. / Daniela Mar M.D. Snomed. ?06/29/2002 1318 <5> CPT code ? 08259, 05710 MISCELLANEOUS SAMPLES / Unknown 06/28/2002 1:37 PM OCCUPATIONAL THERAPY AIDES TEACHER 06/28/2002 1:38 PM OCCUPATIONAL THERAPY AIDES TEACHER Historical Provider MD LAB - PATHOLOGY/C YTOLOGY ORDERABLES Care Teams Ingredient Handler Relationship Specialty Start Date End Date Flaca Bernstein DO PCP - General Internal Medicine 06/21/16
--- OUTSIDE RECORDS SUMMARY | 2024-06-24 16:03 | XMS_ITS | Referral Summary ---
Author Organization [facility] Address [address] [place] [address] Care Team Providers Care Janitorial Supervisor Name Role Phone Flaca Bernstein DO Primary Care Provider [phone] Source Comments [facility],non[facility] Affiliates and Associated Physician Practices is amultiple site organization consisting of ambulatory clinics and hospital sitesin [place], [place], [place] and [place]. This disclosure is being madepursuant to the Care Everywhere program and may not contain all information available regarding this patient. Last updated 18.[facility] Allergies No known active allergies Medications * Be aware that medications may not be up to date on this document. Alwaysverify current medications with the patient. Medication Sig Dispensed Refills Start Date End Date Status omeprazole (PRILOSEC) 40 MG capsule Take 40 mg by mouth daily before breakfast Active vitamin D, ergocalciferol, (DRISDOL) 34768 UNITS capsule Take 50,000 Units by mouth [...] Comments Blood Pressure 130/74 06/21/2016 10:45 AM CIVIL LAWYER Pulse 86 06/21/2016 10:45 AM CIVIL LAWYER Temperature 36.2 ??C (97.2 ??F) 06/21/2016 10:[address] Respiratory Rate 18 06/21/2016 10:45 AM CIVIL LAWYER Oxygen Saturation 99% 06/21/2016 10:45 AM CIVIL LAWYER Inhaled Oxygen Concentration - - Weight 100.7 kg (222 lb) 06/21/2016 9:26 AM CIVIL LAWYER Height 149.9 cm (4' 11 ) 06/21/2016 9:26 AM CIVIL LAWYER Body Mass Index 44.84 06/21/2016 9:26 AM CIVIL LAWYER Functional Status Functional Status Response Date of [...] person have difficulty concentrating/remembering/making decisions? No 06/21/2016 Plan of Treatment Not on file Procedures Procedure Name Priority Date/Time Associated Diagnosis Comments ENDOSCOPY, COLON, SCREENING Routine 06/21/2016 9:36 AM CIVIL LAWYER from Last 3 Months or Most Recently Relevant to Health Maintenance Results * ENDOSCOPY, COLON, SCREENING (06/21/2016 9:36 AM CIVIL LAWYER) Report Endoscopy POC __ _ Patient Name: [...] malignant neoplasm of colon CPT copyright 2015 [employer]. All rights reserved. The codes documented in this report are preliminary and upon director credit risk review may be revised to meet current compliance requirements. Ted Carlos MD __ Ted Carlos MD 06/21/2016 10:23:28 AM This report has been signed electronically. Number of Addenda: 0 Note Initiated On: 06/21/2016 9:36 AM [facility] 06/21/2016 9:36 AM CIVIL LAWYER Ted Carlos MD GI PROCEDURE ORDER BRENDEN [facility] [place] [id number] from Last 3 Months or Most Recently Relevant to Health Maintenance Care Teams Janitorial Supervisor Relationship Specialty Start Date End Date Flaca Bernstein DO PCP - General Internal Medicine 06/21/16
--- OUTSIDE RECORDS SUMMARY | 2024-06-24 16:04 | XMS_ITS | Encounter Summary ---
Author Organization [facility] Address [address] [place] [address] Care Team Providers Care Fish Butcher Name Role Phone Unavailable Primary Care Provider Unavailabl e Reason for Visit * Reason Comments Vaginal Discharge Encounter Details Date Type Department Care Team (Late st Contact Info) Description 07/17/2018 2:15 PM DAUB COLOR MIXER Office Visit [facility] MIXING OPERATOR - [facility] [id number] [place] [id number] [place] [address] [place] [address] Vaginitis, vulvitis and vulvovaginitis in dis classd elswhr (Primary Dx) Social History Tobacco Use Types Packs/Day Years Used Date Smoking Tobacco: Never Smokeless Tobacco: Never Alcohol Use Standard Drinks/Week Comments Yes 0 (1 standard drink = 0.6 oz pur e alcohol) occasional Sex and Gender Information Value Date Recorded Sex Assigned at Not on file Gender Identity Not on file Sexual Orientation Not on file documented as of this encounter Last Filed Vital Signs Vital Sign Reading Time Taken Comments Blood Pressure 116/90 07/17/2018 1:58 PM DAUB COLOR MIXER Pulse - - Temperature - - Respiratory Rate - - Oxygen Saturation - - Inhaled Oxygen Concentration - - Weight 99.3 kg (219 lb) 07/17/2018 1:58 PM DAUB COLOR MIXER Height - - Body Mass Index - - documented in this encounter Progress Notes * Rosendo Espinal MD - 07/17/2018 2:22 PM CST Chief complaint: Notes vulvar itching over last two weeks. Has not been working out and no recent antibiotics. Denies vaginal discharge. Jacquelyn Hurd is a 53 y.o., No obstetric history on file. female who presents today with complaints of vulvar itching and also some itching in axillae. No past medical history on file. Social History Social History ??? Marital status: Spouse name: N/A ??? Number of children: N/A ??? Years of education: N/A Occupational History ??? Not on file. Social History Main Topics ??? Smoking status: Never Smoker ??? Smokeless tobacco: Never Used ??? Alcohol use Yes Comment: occasional ??? Drug use: Yes Types: Marijuana Comment: occasional ??? Sexual activity: Yes Partners: Male Other Topics Concern ??? Not on file Social History Narrative ??? No narrative on file Current Outpatient Prescriptions Medication Sig Dispense Refill ??? omeprazole (PriLOSEC) 10 mg Capsule, Delayed Release(E.C.) Take 10 mg by mouth daily. ??? cholecalciferol, Vitamin D3, 5,000 unit Capsule Take 5,000 Units by mouth every 7 days. No current facility-administered medications for this visit. No Known Allergies ROS: General ROS: negative for weight changes, fever. Respiratory ROS: negative for cough, shortness of breath, or wheezing Cardiovascular ROS: negative for chest pain or dyspnea on exertion Musculoskeletal ROS: negative for back pain, neck pain or joint pain or swelling Genito-Urinary ROS: negative for dysuria, trouble voiding, or hematuria. PHYSICAL EXAMINATION: BP (!) 116/90 Wt 99.3 kg (219 lb) General: Well-developed, well-nourished adult female in [facility] Pelvic: - External: Normal female external genitalia. Perineum intact and without lesions. No whitish areasor obvious areas of erythema - Urethra: Normal urethral meatus. - Vagina: Vaginal mucosa pink and moist without lesions. - Cerivx: Grossly normal, no lesions. - Uterus: Bimanual exam reveals no cervical motional tenderness. - Adenexae: No adnexal masses or fullness appreciated. Procedures: WAYNE and saline preps negative. ASSESSMENT: Question of Monilial vulvitis PLAN: Diflucan X 1 and Terazol to vulva. Use cotton undergarments and keep area dry. Call if no better. COLOR MIXER documented in this encounter Plan of Treatment Scheduled Orders Name Type Priority Associated Diagnoses Orde r Schedule POC VAGINAL WET PREP Point of Care Testing Routine Vaginitis, vulvitis and vulvovaginitis in dis classd elswhr Ordered: 07/17/2018 documented as of this encounter Visit Diagnoses Diagnosis Vaginitis, vulvitis and vulvovaginitis in dis classd elswhr- Primary documented in this encounter
--- OUTSIDE RECORDS SUMMARY | 2024-06-24 16:04 | XMS_ITS | Encounter Summary ---
Author Organization [facility] Address [address] [place] [address] Phone Care Team Providers Care Power Switchboard Operator Name Role Phone Unavailable Primary Care Provider Unavailabl e Reason for Visit * Reason Onset Date Comments COVID-19 04/27/2020 Encounter Details Date Type Department Care Team (Late st Contact Info) Description 04/27/2020 Nurse Triage [facility] [address] [place] [address] Provider, None [place] COVID-19 Social History Tobacco Use Types Packs/Day Years Used Date Smoking Tobacco: Never Assessed Comments Unknown Sex and Gender Information Value Date Recorded Sex Assigned at Not on file Legal Sex Female 7:53 PM FOREIGN BANKNOTE TELLER TRADER Gender Identity Not on file Sexual Orientation Not on file COVID-19 Exposure Response Date Recorded In the last month, have you been in contact with someone who was confirmed or suspected to have Coronavirus / COVID-19? Yes 04/27/2020 7:57 PM FOREIGN BANKNOTE TELLER TRADER documented as of this encounter Miscellaneous Notes * Telephone Encounter - Lena Stewart RN - 04/27/2020 7:53 PM FOREIGN BANKNOTE TELLER TRADER Nurse to triage according to symptoms. 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 Will follow home care advice andwill call back if new or worsening symptoms develop/persist. See care advice and disposition for Guideline First positive answer recorded, all responses to prior questions were negative. If symptoms increase, change or if new symptoms develop, call your HCP or call back. Recommendations were based on caller information and is not a diagnosis. Verified and reviewed all triage information with caller. Direct patient disposition to appropriate level of care including giving care advice. Patients whose symptoms require immediate emergency assistance should be directed to contact 911 for emergency assistance. If triage nurse is calling 911, notify them of the positive screening. For disposition of being seen by a provider in 24 hours or less or discuss with PCP: Schedule a Video or Telephone Visit with the [facility] provider. Add symptom and patient call back contact number to Appointment Note. After scheduling appointment, close the workspace. For Home care advice: Patient counseled to remain at home. If symptoms worsen, the patient counseled to call back. If symptoms are severe patient instructed to call 911 or go to ED immediately. ??? Patient to push fluid intake and take Tylenol PRN for fever, body aches. ??? If you do not live alone: segregate yourself, use a separate bathroom if possible, sleep in a separate area, have no/limited family time, and the person with symptoms is not to prepare food for others. ??? Patient advised to contact employer now to report positive screen and symptoms. How to Discontinue Home Isolation A. People with COVID-19 (or have had COVID-19 type symptoms) who have stayed home (home isolated) can stop home isolation under the following conditions: Discontinuing Home Isolation: At least 324 hours have passed since a fever (100.0 for HCW, 100.4 for lay people) was present without the use of fever- reducing medications (Tylenol, etc.) AND you have improved in respiratory symptoms. (Cough, shortness of breath) AND at least 10 days have passed since your symptoms first appeared. Excuse Note: Patient request for an excuse note: Instruct them to send request for note through [facility] or call PCP office. (Per CDC: Employers should not require a positive COVID-19 test result or a healthcare provider's note for employees who are sick to validate their illness, qualify for sick leave, or to return to work. [facility] is not providing excuse for work notes or return to work notes at this time per CDC recommendations). Caller verbalizes understanding of the above information. Reason for Disposition ? ? MILD difficulty breathing (e.g., minimal/no SOB at rest, SOB with walking, pulse <100) Protocols used: CORONAVIRUS (COVID-19) DIAGNOSED OR [id number] IGN BANKNOTE TELLER TRADER documented in this encounter Plan of Treatment Not on file documented as of this encounter Visit Diagnoses Not on filedocumented in this encounter
--- OUTSIDE RECORDS SUMMARY | 2024-06-24 16:04 | XMS_ITS | Clinical Summary ---
Author Organization [facility] Address [address] [place] [address] Care Team Providers Care Railroad Worker Name Role Phone Unavailable Primary Care Provider Unavailabl e Allergies No known active allergies Medications Medication Sig Dispensed Refills Start Date End Date Status omeprazole (PriLOSEC) 10 mg Capsule, Delayed Release(E.C.) Take 10 mg by mouth daily. Active cholecalciferol, Vitamin D3, 5,000 unit Capsule Take 5,000 Units by mouth every 7 days. Active fluconazole (DIFLUCAN) 150 mg tablet Take 1 Tablet (150 mg) by mouth daily. 1 Tablet 1 07/18/2018 Active clotrimazole-betame thasone (LOTRISONE) 1-0.05 % LotionIndications:M onilial vulvitis Apply to affected area late in the day. 20 mL 08/02/2018 Active terconazole (TERAZOL 3) 0.8% vaginal creamIndications:Mo nilial vulvitis Insert 1 Applicator vaginally daily at bedtime. 12 Gram 1 08/02/2018 Active omeprazole (PriLOSEC) 20 mg Capsule, Delayed Release(E.C.) Take 1 Capsule (20 mg) by mouth in the morning 30 minutes before breakfast. 90 Capsule 10/30/2019 Active Active Problems Problem Noted Date Diagnosed Date Acid reflux disease 07/17/2018 History of abdominal supracervical subtotal hyst erectomy 07/17/2018 Obesity 07/17/2018 Family History Medical History Relation Name Comments Healthy Maternal Grandfather Colon Cancer Maternal Grandmother Diabetes Maternal Grandmother Diabetes Mother Healthy Paternal Grandfather Heart Disease Paternal Grandmother Relation Name Status Comments Father Half-Sister 1 Alive Half-Sister 2 Alive Maternal Grandfather Maternal Grandmother Mother Alive Paternal Grandfather Paternal Grandmother Social History Tobacco Use Types Packs/Day Years [...] Sign Reading Time Taken Comments Blood Pressure 112/80 08/02/2018 11:22 AM CATERING TRUCK OPERATOR Pulse - - Temperature - - Respiratory Rate - - Oxygen Saturation - - Inhaled Oxygen Concentration - - Weight 99.5 kg (219 lb 6.4 oz) 08/02/2018 11:22 AM CATERING TRUCK OPERATOR Height 149.9 cm (4' 11 ) 08/02/2018 11:22 AM CATERING TRUCK OPERATOR Body Mass Index 44.31 08/02/2018 11:22 AM CATERING TRUCK OPERATOR Plan of Treatment Health Maintenance Due Date Last Done Comments DTAP/TDAP/TD VACCINES (1 - Tdap) 1985 HEPATITIS B VACCINES (1 of 3 - 19+ 3-dose series) 1985 CERVICAL CANCER SCREENING 1996 BREAST CANCER SCREENING 2006 FIT-DNA Q 3 years 2011 FIT/FOBT Q 1 year 2011 Flex Sig/CT Colonography Q 5 years 2011 ZOSTER VACCINE (1 of 2) 2016 INFLUENZA VACCINE (#1) 2024 COLORECTAL SCREENING 06/21/2026 06/21/2016 Colorectal Cancer Screening 06/21/2026 PNEUMOCOCCAL VACCINE 0-64 YEARS Aged Out No longer eligible based on patient's age to complete this topic
--- OUTSIDE RECORDS SUMMARY | 2024-06-24 16:04 | XMS_ITS | Encounter Summary ---
Author Organization [facility] Address [address] [place] [address] Phone Care Team Providers Care Atomic Physics Teacher Name Role Phone Unavailable Primary Care Provider Unavailabl e Reason for Visit * Reason Comments COVID-19 Encounter Details Date Type Department Care Team ([facility] Contact Info) Description 04/27/2020 8:45 PM MARBLE CUTTER Telemedicine [facility] - [facility] Contact [facility] [address] [place] [address] Kristopher Jacobo APRN, SENIOR MEDIA DIRECTOR [address] [place] [id number] Cough (Primary Dx); Generalized headaches; Chills; Generalized body aches; Shortness of breath; Rhinorrhea Social History Tobacco Use Types Packs/Day Years Used Date Smoking Tobacco: Never Assessed Comments Unknown Sex and Gender Information Value Date Recorded Sex Assigned at Not on file Legal Sex Female 7:53 PM MARBLE CUTTER Gender Identity Not on file Sexual Orientation Not on file COVID-19 Exposure Response Date Recorded In the last month, have you been in contact with someone who was confirmed or suspected to have Coronavirus / COVID-19? Yes 04/27/2020 7:57 PM MARBLE CUTTER documented as of this encounter Progress Notes * Kristopher Jacobo, DIETARY MANAGER, SENIOR MEDIA DIRECTOR - 04/27/2020 8:45 PM CST Images from the original note were not included. [facility] SUBJECTIVE Chief Complaint Patient presents with ??? COVID-19 Patient is a 54 yo with new onset symptoms. 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 Patient reports: -productive cough using musinex -Headache frontal 5/10 no vision changes, or dizziness -Has chills denies fever -Body aches -rhinorrhea. Not on File No past medical history on file. Social History Substance and Sexual Activity Alcohol Use Not on file Social History Tobacco Use Smoking Status Not on file No current outpatient medications on file prior to visit. No current facility-administered medications on file prior to visit. There is no problem list on file for this patient. Review of Systems Constitutional: Positive for chills and fatigue. HENT: Positive for rhinorrhea. Respiratory: Positive for cough. Musculoskeletal: Positive for myalgias. Chief complaint and all history documented by ancillary staff were reviewed and verified with additions or corrections as appropriate. OBJECTIVE peaking in complete sentences. No distress or coughing noted during dialogue. Physical Exam Unable to complete physical exam due to nature of tele-health visit via telephone. Patient is speaking in complete sentences. Able to walk about the house without fatigue/shortness of breath. No noted cough during telephone encounter. ASSESSMENT/PLAN Education (as applicable): - Discussed further in-person evaluation including option of ED visit at this time. Pt declined further evaluation at this time. Pt would like to use conservative management and remain home. Discussed risks associated with this decision and pt voices understanding. - Patient counseled to remain at home unless symptoms get worse. If symptoms worsen, the patient was counseled to call back to their PCP office (or this triage line if no PCP) or go to ED immediatelyfor severe symptoms. - If asymptomatic and had close contact with COVID-19 positive individual(s): quarantine at home for 14 days for symptom monitoring. - If symptomatic or symptoms develop within those 14 days of quarantine, stay home until these three things have happened: - No fever for 24 hours (without the use of medicine) AND - Other symptoms have improved (ie cough, SOB) AND - at least 10 days have passed since your symptoms first appeared - Patient to push fluid intake and take Tylenol PRN for fever, body aches. - If you do not live alone: segregate yourself, use a separate bathroom if possible, sleep in a separate area, have no/limited family time, and the person with symptoms is not to prepare food for others. - Patient advised to contact employer now to report positive screen and symptoms. - Per CDC: Employers should not require a positive COVID-19 test result or a healthcare provider's note for employees who are sick to validate their illness, qualify for sick leave, or to return to work. [facility] is not providing excuse for work notes or return to work notes at this time per CDC recommendations. Caller verbalizes understanding of the above information. Recommended disposition of Home self-care supported by the above documentation. Patient agreed withdisposition. Diagnoses and all orders for this visit: Cough Generalized headaches Chills Generalized body aches Shortness of breath Rhinorrhea patient to seek out testing at a community site as there is no [facility] facility near her home. Informed her if symptoms worsen toseek in person evaluation Patient was assessed via telephone for a duration of 0-15 minutes. Patient verbally consented for this service to be performed. - Kristopher Jacobo APN, CNS LE CUTTER documented in this encounter Plan of Treatment Scheduled Orders Name Type Priority Associated Diagnoses Orde r Schedule SARS-COV-2 BY MOLECULAR Microbiology Routine Cough Generalized headaches Chills Generalized body aches Shortness of breath Rhinorrhea Ordered: 04/27/2020 documented as of this encounter Visit Diagnoses Diagnosis Cough- Primary Generalized headaches Headache Chills Chills (without fever) Generalized body aches Shortness of breath Rhinorrhea Other diseases of nasal cavity and sinuses documented in this encounter Additional Health Concerns Infection Onset Date Last Indicated Resolved Time COVID - 19 04/27/2020 04/27/2020 05/17/2020 12:1 9 AM MARBLE CUTTER documented as of this encounter
--- OUTSIDE RECORDS SUMMARY | 2024-06-24 16:04 | XMS_ITS | Encounter Summary ---
Author Organization [facility] Address [address] [place] [address] Care Team Providers Care Wood Milling Machine Hand Name Role Phone Unavailable Primary Care Provider Unavailabl e Reason for Visit * Reason Onset Date Comments New Prescription Request 08/01/2018 Encounter Details Date Type Department Care Team ([facility] st Contact Info) Description 08/01/[address] [facility] SENIOR SOUS CHEF - [facility] [id number] [place] [address] [address] [place] [address] [place] [address] [facility] [address] [place] [address] New Prescription Request Social History Tobacco Use Types Packs/Day Years Used Date Smoking Tobacco: Never Smokeless Tobacco: Never Alcohol Use Standard Drinks/Week Comments Yes 0 (1 standard drink = 0.6 oz pur e alcohol) occasional Sex and Gender Information Value Date Recorded Sex Assigned at Not on file Gender Identity Not on file Sexual Orientation Not on file documented as of this encounter Miscellaneous Notes * Telephone Encounter - Meredith Lemus - 08/02/2018 9:56 AM CST Pt coming in today for appt CUSTOMER DEVELOPMENT * Telephone Encounter - Rosendo Espinal MD - 08/01/2018 4:36 PM CST Would prefer she come in rather than being treated over the phone. Is itching outside or inside. Could use Monostat vs. Terazol and Diflucan. Use the Monostat where the itching occurs, vaginal vs. Onvulva. CUSTOMER DEVELOPMENT * Telephone Encounter - Juan Kinney - 08/01/2018 2:23 PM CST Pt called in stating she was treated for an infection but she thinks it is back. Pt used on of the refills you sent her but she wants to know if she can have a different script? Pt says she is itching really bad and she is very uncomfortable CUSTOMER DEVELOPMENT documented in this encounter Plan of Treatment Not on file documented as of this encounter Visit Diagnoses Not on filedocumented in this encounter
--- OUTSIDE RECORDS SUMMARY | 2024-06-24 16:04 | XMS_ITS | Encounter Summary ---
Author Organization [facility] Address [address] [place] [address] Care Team Providers Care Senior Education Specialist Name Role Phone Unavailable Primary Care Provider Unavailabl e Encounter Details Date Type Department Care Team (Late st Contact Info) Description 10/11/2006 Inpatient Historical [facility] Bel Lezama MD [address] [facility] [address] [place] [address] Aida Johnson MD [address] [address] [address] Diffuse Cystic Mastopathy (Primary Dx) Social History Tobacco Use Types Packs/Day Years Used Date Smoking Tobacco: Never Assessed Sex and Gender Information Value Date Recorded Sex Assigned at Not on file Gender Identity Not on file Sexual Orientation Not on file documented as of this encounter Plan of Treatment Not on file documented as of this encounter Visit Diagnoses Diagnosis Diffuse cystic mastopathy- Primary documented in this encounter
--- OUTSIDE RECORDS SUMMARY | 2024-06-24 16:04 | XMS_ITS | Encounter Summary ---
Author Organization [facility] Address [address] [place] [address] Care Team Providers Care Paper Stacker Name Role Phone Unavailable Primary Care Provider Unavailabl e Reason for Visit * Reason Onset Date Comments Medication Question 07/18/2018 Encounter Details Date Type Department Care Team ([facility] st Contact Info) Description 07/18/2018 Telephone [facility] RECYCLABLE MATERIALS SORTER - [facility] [address] [facility] [address] [place] [address] [place] [address] [facility] [address] [place] [address] Medication Question Social History Tobacco Use Types Packs/Day Years [...] encounter Miscellaneous Notes * Telephone Encounter - Ynes Mackenzie NP - 07/18/2018 1:07 PM WOODYARD OPERATOR Sent meds that he referenced in his note YARD OPERATOR documented in this encounter Plan of Treatment Not on file documented as of this encounter Visit Diagnoses Not on filedocumented in this encounter
--- OUTSIDE RECORDS SUMMARY | 2024-06-24 16:04 | XMS_ITS | Encounter Summary ---
Author Organization [facility] Address [address] [place] [address] Care Team Providers Care Cyber Intel Planner Name Role Phone Unavailable Primary Care Provider Unavailabl e Encounter Details Date Type Department Care Team ([facility] st Contact Info) Description 01/03/2019 Orders Only [facility] EMERGENCY DEPARTMENT - [facility] [address] [facility] [address] [place] [address] [place] [address] [facility] [address] [place] [address] Screening for breast cancer (Primary Dx) Social History Tobacco Use Types [...] as of this encounter Visit Diagnoses Diagnosis Screening for breast cancer- Primary Breast screening, unspecified documented in this encounter
--- OUTSIDE RECORDS SUMMARY | 2024-06-24 16:04 | XMS_ITS | Encounter Summary ---
Author Organization [facility] Address [address] [facility] Attn: [place] [address] Care Team Providers Care Associate Automation Engineer Name Role Phone Unavailable Primary Care Provider Unavailabl e Encounter Details Date Type Department Care Team ([facility] st Contact Info) Description 06/29/2019 Orders Only Initial Department [address] [place] [address] Dr VIEYRAN: [place] [address] Provider, Historical Social History Tobacco Use Types Packs/Day Years [...] Procedure Name Priority Date/Time Associated Diagnosis Comments [facility] MISCELLANEOUS TEST Routine 06/29/2019 6:23 AM PRODUCTION SUPERINTENDENT HYDRO documented in this encounter Results * [facility] MISCELLANEOUS TEST (06/29/2019 6:23 AM PRODUCTION SUPERINTENDENT HYDRO) [facility] RESULT Negative [facility] Comment: Component Name: ??T-SPOT.TB Normal Value: Negative A negative test result does not exclude the possibility of exposure to or infection with Mycobacterium tuberculosis (M. tuberculosis). ??Patients with recent exposure to TB infected individuals exhibiting a negative T-SPOT.TB result should be considered for retesting within 6 weeks or if other relevant clinical symptoms indicate. ??Results from T-SPOT.TB testing must be used in conjunction with each individual's epidemiological history, current medical status, and results of other diagnostic evaluations. ??The T-SPOT.TB test is qualitative and results are reported as positive, borderline or negative, given that the test controls perform as expected. In line with the Centers for Disease Control and Prevention's 2010 recommendation to report quantitative measurements alongside the qualitative result, the laboratory provides spot counts for informational purposes only. ??The T-SPOT.TB test should not be interpreted as a quantitative test. [facility] RESULT [address] [facility] Comment:Component Name: FLAKO L A SPOT COUNT CORRECTED FOR NEG CONTROL [facility] RESULT [address] [facility] Comment:Component Name: FLAKO L B SPOT COUNT CORRECTED FOR NEG CONTROL [facility] RESULT Passed [facility] Comment:Component Name: NEG ATIVE CONTROL [facility] RESULT Passed [facility] Comment: Component Name: ??POSITIVE CONTROL FASTING: UNKNOWN Test Performed at: [facility] [address] [place], [place] ??[phone] Julio Guevara MD,PhD 06/29/2019 6:23 AM PRODUCTION SUPERINTENDENT HYDRO Narrative [facility] - 07/01/2019 6:11 AM PRODUCTION SUPERINTENDENT HYDRO This unsolicited order was created by [facility] The [facility] Name for this order is: T-SPOT(R).TB Nagi Shields MD CHEMISTRY ORDERABLES [facility] [address] [place] [address] documented in this encounter Visit Diagnoses Not on filedocumented in this encounter
--- OUTSIDE RECORDS SUMMARY | 2024-06-24 16:04 | XMS_ITS | Encounter Summary ---
Author Organization [facility] Care Team Providers Care Bridge Worker Name Role Phone Unavailable Primary Care Provider Unavailabl e Encounter Details Date Type Department Care Team (Latest Contact Info) Description 04/27/2020 Travel Social History Tobacco Use Types Packs/Day Years Used Date Smoking Tobacco: Never Assessed Comments Unknown Sex and Gender Information Value Date Recorded Sex Assigned at Not on file Legal Sex Female 7:53 PM SALES ENABLEMENT LEAD Gender Identity Not on file Sexual Orientation Not on file COVID-19 Exposure Response Date Recorded In the last month, have you been in contact with someone who was confirmed or suspected to have Coronavirus / COVID-19? Yes 04/27/2020 7:57 PM SALES ENABLEMENT LEAD documented as of this encounter Plan of Treatment Not on file documented as of this encounter Visit Diagnoses Not on filedocumented in this encounter Additional Health Concerns Infection Onset Date Last Indicated Resolved Time COVID - 19 04/27/2020 04/27/2020 05/17/2020 12:1 9 AM SALES ENABLEMENT LEAD documented as of this encounter
--- OUTSIDE RECORDS SUMMARY | 2024-06-24 16:04 | XMS_ITS | Encounter Summary ---
Author Organization [facility] Address 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 MANAGER Office Visit [facility] [employer] FORMER - [facility] [id number] [place] [address] [place] [address] [facility] [address] [place] [address] Monilial vulvitis (Primary Dx) Social History Tobacco Use Types [...] Comments Blood Pressure 112/80 08/02/2018 11:22 AM IT APPLICATION DEVELOPMENT MANAGER Pulse - - Temperature - - Respiratory Rate - - Oxygen Saturation - - Inhaled Oxygen Concentration - - Weight 99.5 kg (219 lb 6.4 oz) 08/02/2018 11:22 AM IT APPLICATION DEVELOPMENT MANAGER Height 149.9 cm (4' 11 ) 08/02/2018 11:22 AM IT APPLICATION DEVELOPMENT MANAGER Body Mass Index 44.31 08/02/2018 11:22 AM IT APPLICATION DEVELOPMENT MANAGER documented in this encounter Progress Notes * Rosendo Espinal MD - 08/02/2018 11:41 AM CST Chief complaint. Is more vulvar itching. Was better after using Terazol and Diflucan. Returned however and started Monostat vaginally yesterday. Jacquelyn Hurd is a 53 y.o. who notes persistent vulvar itching. No new antibiotic or working out or swimming. Is a borderline diabetic per Primary Care. Encouraged control of this and losing weight. No past medical history on file. Social [...] Outpatient Prescriptions Medication Sig Dispense Refill ??? fluconazole (DIFLUCAN) 150 mg tablet Take 1 Tablet (150 mg) by mouth daily. 1 Tablet 1 ??? omeprazole (PriLOSEC) 10 mg Capsule, Delayed [...] trouble voiding, or hematuria. PHYSICAL EXAMINATION: BP 112/80 Ht 4' 11 (1.499 m) Wt 99.5 kg (219 lb 6.4 oz) BMI 44.31 kg/m?? General: Well-developed, well-nourished adult female in [facility] Pelvic: - External: Normal female external genitalia. Perineum intact and without lesions. No evidence of vulvar Monilia infection, no white or inflammed areas - Urethra: Normal urethral meatus. 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 Lotrisone for few days at a time prn. Weight loss and control of potential diabetes. APPLICATION DEVELOPMENT MANAGER documented in this encounter Plan of Treatment Not on file documented as of this encounter Visit Diagnoses Diagnosis Monilial vulvitis- Primary Candidiasis of vulva and vagina documented in this encounter
--- OUTSIDE RECORDS SUMMARY | 2024-06-24 16:04 | XMS_ITS | Encounter Summary ---
Author Organization [facility] Address [address] [place] [address] Care Team Providers Care Space Engineer Name Role Phone Unavailable Primary Care Provider Unavailabl e Reason for Visit * Reason Onset Date Comments Yeast Infection 06/23/2018 Encounter Details Date Type Department Care Team ([facility] st Contact Info) Description 06/23/2018 Telephone [facility] MANAGER ED - [facility] [address] [facility] [address] [place] [address] [place] [address] [facility] [address] [place] [address] Yeast Infection Social History Tobacco Use Types Packs/Day Years Used Date Smoking Tobacco: Never Assessed Sex and Gender Information Value Date Recorded Sex Assigned at Not on file Gender Identity Not on file Sexual Orientation Not on file documented as of this encounter Miscellaneous Notes * Telephone Encounter - Angy Fitzpatrick - 06/23/2018 9:08 AM CST Patient called complaining of a yeast infection. Asked for a prescription to be sent to her pharmacy. I spoke with Dilcia STONER who approved a prescription to be sent. 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
--- OUTSIDE RECORDS SUMMARY | 2024-06-24 16:04 | XMS_ITS | Clinical Summary ---
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 Gender Identity Not on file Sexual Orientation Not on file Plan of Treatment Health Maintenance Due Date Last Done Comments Hepatitis C Virus (HCV) Screening 1966 TdaP Immunization 1966 Hepatitis B Immunization (1 of 3 - 19+ 3-dose series) 1985 Pap Smear 1987 Cervical Cancer Screening (CCS) 1996 HPV/Cotest 1996 Colonoscopy 2011 Colorectal Cancer Screening 2011 Cologuard 2016 Immunochemical Fecal Occult Blood 2016 Mammogram 2016 Pneumococcal Immunization (5 0+ years) (1 of 1 - PCV) 2016 Zoster Immunization (1 of 2) 2016 Influenza Immunization (#1) 2024 07/12/2018 SARS-COV-2 Immunization (3 - season) 2024 12/04/2020, 11/14/2020 Respiratory Syncytial Virus (RSV) Immunization (Adult) (1 - 1-dose 75+ series) 2041 Meningococcal Immunization (ACWY) Aged Out No longer eligible b ased on patient's age to complete this topic Pneumococcal Immunization Combined Aged Out No longer eligible b ased on patient's age to complete this topic Rotavirus Immunization Aged Out No lo nger eligible based on patient's age to complete this topic
--- OUTSIDE RECORDS SUMMARY | 2024-06-24 16:04 | XMS_ITS | Continuity of Care Document ---
Author Organization [facility] Address [address] [place] [address] Phone Care Team Providers Care Hat Lining Blocker Name Role Phone Flaca Bernstein DO Unavailable Unavailable Allergies, Adverse Reactions, Alerts Substance Reaction Status Criticality No Known Allergies Active No Inform ation Medications Medication Instructions Dosage Effective Dates (start - stop) Status Comments ergocalciferol (vitamin D2) 50,000 unit capsule take 1 capsule by oral route every week [address]373 UNITS - Active omeprazole 20 mg capsule,delayed [...] Diagnoses Date Provider Providers Copied on Encounter [facility], [address], [place], [place], [id number] , [place] tel: [phone] [facility] No Information Sep-0 3-201 9 Day Thayer. [address] [place], [place], [id number] , [place]. tel: [phone] [facility] [address], [place], [place], [address] , tel: [phone] [facility] No Information 9 Tenzin Jerome. [address] [place] [address], [address], . tel: [phone] [facility], [address], [place], [place], [address] , tel: [phone] [facility] Chronic Conditions (chief complaint) Body mass index (BMI) 45.0-49.9, adultMorbid (severe) obesity due to excess caloriesVitamin D deficiency, unspecifiedGERD without esophagitisPrediab etesMild episode of recurrent major depressive disorderEncntr screen mammogram for malignant neoplasm of breast 9 Jovani Joyce. [address] [place] [address], [id number] , [place]. tel: [phone] Referring Provider: Flaca Williamson, [address] [place] [address], [address] . tel:[phone] [facility], [address], [place], [place], [address] , tel: [phone] [facility] Morbid (severe) obesity due to excess caloriesVertigoVit ferguson D deficiency, unspecifiedDaytime somnolence 8 Day Thayer. [address] [place] [address], [id number] , [place]. tel: [phone] Referring Provider: Flaca Williamson, [address] [place] [address], [address] . tel:[phone] [facility], [address], [place], [place], [address] , tel: [phone] [facility] Morbid (severe) obesity due to excess caloriesVitamin D deficiency, unspecifiedDaytime somnolenceAnxietyB ilateral lower extremity edema 7 Day Thayer. [address] [place] [address], [id number] , . tel: [phone] Referring Provider: Flaca Williamson, [address] [place] [address], [address] . tel:[phone] [facility], [address], [place], [place], [address] , tel: [phone] [facility] Morbid (severe) obesity due to excess caloriesNumbness and tingling of left lower extremityHistory of foot surgery Tenzin Gaylin. [address] [place] [address], [address], [place]. tel: [phone] Referring Provider: Flaca Williamson, [address] [place] [address], [address] . tel:[phone] [facility], [address], [place], [place], [address] , tel: [phone] [facility] Shortness of breath Day Thayer. [address] [place] [address], [id number] , [place]. tel: [phone] [facility], [address], [place], [place], [address] , tel: [phone] [facility] Morbid (severe) obesity due to excess caloriesBody mass index (BMI) 40.0-44.9, adultVitamin D deficiency, unspecifiedDaytime somnolence Day Thayer. [address] [place] [address], [id number] , [place]. tel: [phone] [facility], [address], [place], [place], [address] , tel: [phone] [facility] Body mass index (BMI) 40.0-44.9, adultMorbid (severe) obesity due to excess caloriesVitamin D deficiency, unspecifiedLower respiratory infection (e.g., bronchitis, pneumonia, pneumonitis, pulmonitis)Daytime somnolenceEncntr screen mammogram for malignant neoplasm of breastSleep apnea in adult 7 Day Thayer. [address] [place] [address], [id number] , [place]. tel: [phone] Referring Provider: Flaca Williamson, [address] [place] [address], [address] . tel:[phone] [facility], [address], [place], [place], [address] , tel: [phone] [facility] Vitamin D deficiency, unspecifiedMorbid obesity due to excess caloriesAnxietyUri nary frequencyScreening for malignant neoplasm of breast 6 Day Thayer. [address] [place] [address], [id number] , [place]. tel: [phone] Referring Provider: Flaca Williamson, [address] [place] [address], [place], [address] . tel:[phone] [facility], [address], [place], [place], [address] , [place] tel: [phone] [facility] Vitamin D deficiency, unspecifiedMorbid obesity due to excess calories 6 Day Thayer. [address] [place] [address], [id number] , [place]. tel: [phone] Referring Provider: Flaca Williamson, [address] [place] [address], [place], [address] . tel:[phone] [facility], [address], [place], [place], [address] , [place] tel: [phone] [facility] Daytime somnolenceOther fatigueMorbid obesity due to excess calories 6 Day Thayer. [address] [place] [address] [place], [address] , [place]. tel: [phone] Referring Provider: Flaca Williamson, [address] [place] [address], [address] . tel: [facility], [address], [place], [place], [address] , tel: [phone] [facility] Unspecified urinary incontinence 0-201 6 [place] Laura. [address] [place] [address], [id number] , . tel: [phone] Referring Provider: Flaca Williamson, [address] [place] [address], [address] . tel: [facility], [address], [place], [place], [address] , tel: [phone] [facility] Vitamin D deficiency, unspecifiedSnoring 1 4-201 5 Day Laura. [address] [place] [address], [id number] , [place]. tel: [phone] Referring Provider: Flaca Williamson, [address] [place] [address], [address] . tel: [facility], [address], [place], [place], [address] , tel: [phone] [facility] Vitamin D deficiency, unspecifiedPain in left finger(s)Menopausa l and female climacteric statesSnoring 0 9-201 5 Day Thayer. [address] [place] [address], [id number] , [place]. tel: [phone] Referring Provider: Flaca Williamson, [address] [place] [address], [address] . tel: [facility], [address], [place], [place], [address] , tel: [phone] [facility] Pain in finger 5-201 5 Day Laura. [address] [place] [address], [id number] , [place]. tel: [phone] [facility], [address], [place], [address] , [place] tel: [phone] [facility] Pain in finger 5 Day Thayer. [address] [place] [address], [id number] , [place]. tel: [phone] [facility], [address], [place], [place], [address] , [place] tel: [phone] [facility] ObesityUnspecified vitamin d deficiencyRoufort [facility] medical exam 5 Day Thayer. [address] [place] [address], [id number] , [place]. tel: [phone] Referring Provider: Flaca Williamson, [address] [place] [address], [address] . tel: [facility], [address], [place], [place], [address] , [place] tel: [phone] [facility] ObesityAbnormal mammogramFollow-up fracture care for healing fractureUnspecifie d vitamin d deficiency Day Thayer. [address] [place] [address], [id number] , [place]. tel: [phone] Referring Provider: Flaca Williamson, [address] [place] [address], [address] . tel: [facility], [address], [place], [place], [address] , [place] tel: [phone] [facility] Proteinuria 5 Day Thayer. [address] [place] [address], [id number] , [place]. tel: [phone] Referring Provider: Flaca Williamson, [address] [place] [address], [address] . tel: [facility], [address], [place], [place], [address] , [place] tel: [phone] [facility] Follow-up fracture care for healing fractureAbnormal mammogramUnspecifi ed vitamin d deficiencyMenopaus al or female climacteric statesObesity 4 Day Thayer. [address] [place] [address], [id number] , [place]. tel: [phone] Referring Provider: Flaca Williamson, [address] [place] [address], [place], [address] . tel: [facility], [address], [place], [place], [address] , [place] tel: [phone] [facility] Routine medical examPrediabetes 4 Day Thayer. [address] [place] [address], [id number] , [place]. tel: [phone] Referring Provider: Flaca Williamson, [address] [place] [address], [place], [address] . tel: [facility], [address], [place], [place], [address] , [place] tel: [phone] [facility] Abdominal crampingProteinuri aUnspecified vitamin d deficiencyMenopaus al or female climacteric states 4 Day Thayer. [address] [place] [address], [id number] , [place]. tel: [phone] Referring Provider: Flaca Williamson, [address] [place] [address], [place], [address] . tel:[phone] [facility], [address], [place], [place], [address] , [place] tel: [phone] [facility] Unspecified vitamin d deficiencyDizzines sHot flashes 3 Day Thayer. [address] [place] [address], [id number] , [place]. tel: [phone] Referring Provider: Flaca Williamson, [address] [place] [address], [place], [address] . tel: [facility], [address], [place], [place], [address] , tel: [phone] [facility] Dizziness Feb-1 1 3 Day Thayer. [address] [place] [address], [id number] , . tel: [phone] Referring Provider: Flaca Williamson, [address] [place] [address], [address] . tel: [facility], [address], [place], [place], [address] , tel: [phone] [facility] Dizziness and giddinessProteinur iaUnspecified vitamin d deficiencyHypoglyc emia Sep-0 6 3 Day Thayer. [address] [place] [address], [id number] , [place]. tel: [phone] Referring Provider: Flaca Williamson, [address] [place] [address], [address] . tel: [facility], [address], [place], [place], [address] , tel: [phone] [facility] Urinary incontinenceDizzin essCephalgia Reilly-0 5201 3 Day Thayer. [address] [place] [address], [id number] , [place]. tel: [phone] Referring Provider: Flaca Williamson, [address] [place] [address], [address] . tel: [facility], [address], [place], [place], [address] , tel: [phone] [facility] DizzinessUrinary incontinence October-2 8 3 Day Thayer. [address] [place] [address], [id number] , . tel: [phone] Referring Provider: Flaca Williamson, [address] [place] [address], [address] . tel:[phone] [facility], [address], [place], [place], [address] , tel: [phone] [facility] ProteinuriaUnspeci fied vitamin d deficiencyEdema Sep- 3 Day Thayer. [address] [place] [address], [id number] , . tel: [phone] Referring Provider: Flaca Williamson, [address] [place] [address], [address] . tel:[phone] [facility], [address], [place], [place], [address] , tel: [phone] [facility] ProteinuriaEdemaEs ophageal refluxVitamin d deficiency Sep-2 3 Day Thayer. [address] [place] [address], [address] , . tel: [phone] Referring Provider: Flaca Williamson, [address] [place] [address], [address] . tel:[phone] [facility], [address], [place], [place], [address] , tel: [phone] [facility] GERD (gastroesophageal reflux disease)Proteinuri aBilateral lower extremity edema Fe- 3 Day Thayer. [address] [place] [address], [id number] , . tel: [phone] Referring Provider: Flaca Williamson, [address] [place] [address], [address] . tel:[phone] Family History Family Member Type Diagnosis Age At Onset Maternal grandmother Problem (finding) Family hi story unknown (Cause Of ) 86 Father Problem (finding) Mother Problem (finding) diabetes melli tus in first degree relative Father Problem (finding) Mitral valve p rolapse (Cause Of ) Sister Problem (finding) healthy Mother Problem (finding) hypertension 65 Immunizations Vaccine Date Status Comments Fluzone Quad, split virus, 0.5mL dosage administered Source: New Immuniza tion Record Fluzone Quad [id number], split virus, 0.5mL dosage administered Source: New Im munization Record influenza, injectable, quadrivalent, (3 years or older) refused Source: New Immuniza tion Record flu (split) (3 yrs or older) administered Source: Source Unspecified flu (split) (3 yrs or older) administered Source: Other Provider Payers Payer name Insurance type Covered republican ID Authoriza tion(s) [place] OUT OF [place] BL [id number] [facility] [id number] [facility] [id number] Social History Type Description Quantity Date Captured [...] guidance, and counseling completed Referral Referred To: [address] [place] [address] Dr Ban[place], [phone] Ordered: Screening mammography of both breasts Appointment date/timeframe: 09/07/2018 ordered Future Order: Lab Order Vitamin B12 ([id number]), Collected on: , Sent on: Sent Future Order: Lab Order Folic Ac id (Folate), Serum ([id number]), Collected on: , Sent on: Sent Future Order: Lab Order Sed rate ([id number]), Collected on: , Sent on: Sent Future Order: Lab Order CBC AUTO DIFF ([id number]), Collected on: , Sent on: Sent Future Order: Lab Order Uric Aci d ([id number]), Collected on: , Sent on: Sent History [...] 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 Related to Mild episode of recurrent major depressive disorder Giving encouragement to exercise Related to Body mass index (BMI) 45.0-49.9, adult Medication management Dietary management e ducation, guidance, and counseling Related to Body mass index (BMI) 45.0-49.9, adult Assessments Type Assessment Date No Information Patient Care Teams Name Effective Dates (start - stop) Status Members No Information
== END 2024-06-18 09:55 | disposition home or self-care (01) ==
LOC: ANHED 09:51
PROVIDERS: Emergency Provider Physician Assistant; PCP Family Medicine
DX: H10.32 Unspecified acute conjunctivitis, left eye (principal); Z90.710 Acquired absence of both cervix and uterus; Z90.721 Acquired absence of ovaries, unilateral
CPT/HCPCS: 99283

== ENCOUNTER 2024-08-29 08:13 | Outpatient (CLI) | payer OTHER, SELFPAY ==
--- OUTSIDE RECORDS SUMMARY | 2024-08-29 08:24 | XMS_ITS | Clinical Summary ---
Author Organization [facility] [employer] Address [address] [place] [address] Care Team Providers Care Frame Builder Name Role Phone Flaca Bernstein DO Primary Care Provider [phone] Source Comments [facility] Affiliates and Associated Physician Practices is amultiple site organization consisting of ambulatory clinics and hospital sitesin [place], [place], [place] and [place]. This disclosure is being madepursuant to the Care Everywhere program and may not contain all information available regarding this patient. Last updated 18.[facility] [employer] Allergies No known active allergies Medications * Be aware that medications may not be up to date on this document. Alwaysverify current medications with the patient. Medication Sig Dispensed Refills Start Date End Date Status omeprazole (PRILOSEC) 40 MG capsule Take 40 mg by mouth daily before breakfast Active vitamin D, ergocalciferol, (DRISDOL) 25663 UNITS capsule Take 50,000 Units by mouth [...] Comments Blood Pressure 130/74 06/21/2016 10:45 AM [employer] Pulse 86 06/21/2016 10:45 AM [employer] Temperature 36.2 C (97.2 F) 06/21/2016 10:31 AM [employer] Respiratory Rate 18 06/21/2016 10:45 AM [employer] Oxygen Saturation 99% 06/21/2016 10:45 AM [employer] Inhaled Oxygen Concentration - - Weight 100.7 kg (222 lb) 06/21/2016 9:26 AM [employer] Height 149.9 cm (4' 11 ) 06/21/2016 9:26 AM [employer] Body Mass Index 44.84 06/21/2016 9:26 AM [employer] Plan of Treatment Health Maintenance Due Date [...] complete this topic MENINGOCOCCAL (Group B) VACCINE SHARED DECISION-MAKING Aged Out No longer eligible based on patient's age to complete this topic MENINGOCOCCAL GROUPS A/C/Y/W VACCINE Aged Out No longer eligible b ased on patient's age to complete this topic PNEUMOCOCCAL VACCINE Aged Out No long er eligible based on patient's age to complete this topic Procedures Procedure Name Priority Date/Time Associated Diagnosis Comments ENDOSCOPY, COLON, SCREENING Routine 06/21/2016 9:36 AM [employer] from Last 3 Months or Most Recently Relevant to Health Maintenance Results * ENDOSCOPY, COLON, SCREENING (06/21/2016 9:36 AM [employer]) Report Endoscopy POC __ _ Patient Name: Jacquelyn Hurd Procedure Date: 06/21/2016 9:36 AM Date of : 1965 Admit Type: Outpatient Age: 51 Gender: Female Attending MD: Ted Carlos MD __ _ Procedure: Colonoscopy Indications: Screening for colorectal malignant neoplasm Providers: Ted Carlos MD (Doctor) Referring MD: Flaca Bernstein (Referring MD) Medicines: Monitored Anesthesia Care Complications: No immediate complications. __ _ Procedure: Pre-Anesthesia Assessment: - Prior to the procedure, a History and Physical was performed, and patient medications and allergies were reviewed. The patient is competent. The risks and benefits of the procedure and the sedation options and risks were discussed with the patient. All questions were answered and informed consent was obtained. Patient identification and proposed procedure were verified by the physician and the anesthesiologist in the pre-procedure area. Mental Status Examination: alert and oriented. Airway Examination: normal oropharyngeal airway and neck mobility. Respiratory Examination: clear to auscultation. CV Examination: normal. Prophylactic Antibiotics: The patient does not require prophylactic antibiotics. Prior Anticoagulants: The patient has taken no previous anticoagulant or antiplatelet agents. ASA Grade Assessment: I - A normal, healthy patient. After reviewing the risks and benefits, the patient was deemed in satisfactory condition to undergo the procedure. The anesthesia plan was to use moderate sedation / analgesia (conscious sedation). Immediately prior to administration of medications, the patient was re-assessed for adequacy to receive sedatives. The heart rate, respiratory rate, oxygen saturations, blood pressure, adequacy of pulmonary ventilation, and response to care were monitored throughout the procedure. The physical status of the patient was re-assessed after the procedure. After I obtained informed consent, the scope was passed under direct vision. Throughout the procedure, the patient's blood pressure, pulse, and oxygen saturations were monitored continuously. The Colonoscope was introduced through the anus and advanced to the cecum, identified by appendiceal orifice and ileocecal valve. The colonoscopy was performed without difficulty. The patient tolerated the procedure well. The quality of the bowel preparation was excellent. Findings: The perianal and digital rectal examinations were normal. The entire examined colon appeared normal. __ _ Impression: - The entire examined colon is normal. - No specimens collected. Recommendation: - Discharge patient to home (ambulatory). - Resume previous diet. - Continue present medications. - Repeat colonoscopy in 10 years per protocol. - Return to GI office in 4 weeks. Procedure Code(s): --- Professional --- G0121, Colorectal cancer screening; colonoscopy on individual not meeting criteria for high risk --- Technical --- G0121, Colorectal cancer screening; colonoscopy on individual not meeting criteria for high risk Diagnosis Code(s): --- Professional --- Z12.11, Encounter for screening for malignant neoplasm of colon --- Technical --- Z12.11, Encounter for screening for malignant neoplasm of colon CPT copyright 2015 [employer]. All rights reserved. The codes documented in this report are preliminary and upon yard switch operator review may be revised to meet current compliance requirements. Ted Carlos MD __ Ted Carlos MD 06/21/2016 10:23:28 AM This report has been signed electronically. Number of Addenda: 0 Note Initiated On: 06/21/2016 9:36 AM DP ENDOSCOPY 06/21/2016 9:36 AM [employer] Ted Carlos MD GI PROCEDURE ORDER [facility] [place] [address] from Last 3 Months or Most Recently Relevant to Health Maintenance Care Teams Frame Builder Relationship Specialty Start Date End Date Flaca Bernstein DO PCP - General Internal Medicine 06/21/16
--- OUTSIDE RECORDS SUMMARY | 2024-08-29 08:24 | XMS_ITS | Clinical Summary ---
Author Organization [employer] [facility] Address [address] [place] [address] Care Team Providers Care Program Coordinator Name Role Phone Unavailable Primary Care Provider Unavailabl e Allergies No known active allergies Medications omeprazole (PriLOSEC) 10 mg Capsule, Delayed Release(E.C.) Take 10 mg by mouth daily. Active cholecalciferol , Vitamin D3, 5,000 unit Capsule Take 5,000 Units by mouth every 7 days. Active fluconazole (DIFLUCAN) 150 mg tablet Take 1 Tablet (150 mg) by mouth daily. 1 Tablet 1 9 Active clotrimazole-be tamethasone (LOTRISONE) 1-0.05 % LotionIndicatio ns:Monilial vulvitis Apply to affected area late in the day. 20 mL 9 Active terconazole (TERAZOL 3) 0.8% vaginal creamIndication s:Monilial vulvitis Insert 1 Applicator vaginally daily at bedtime. 12 Gram 1 9 Active omeprazole (PriLOSEC) 20 mg Capsule, Delayed Release(E.C.) Take 1 Capsule (20 mg) by mouth in the morning 30 minutes before breakfast. 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 Gender Identity Not on file Sexual Orientation Not on file Last Filed Vital Signs Vital Sign Reading Time Taken Comments Blood Pressure 112/80 08/02/2018 11:22 AM [employer] Pulse - - Temperature - - Respiratory Rate - - Oxygen Saturation - - Inhaled Oxygen Concentration - - Weight 99.5 kg (219 lb 6.4 oz) 08/02/2018 11:22 AM [employer] Height 149.9 cm (4' 11 ) 08/02/2018 11:22 AM [employer] Body Mass Index 44.31 08/02/2018 11:22 AM [employer] Plan of Treatment Health Maintenance Due Date [...] 06/21/2016 Colorectal Cancer Screening 06/21/2026 PNEUMOCOCCAL VACCINE 0-49 YEARS Aged Out No longer eligible based on patient's age to complete this topic Insurance BCBS BLUE ACCESS/TRUE BLUE PPO RX MEDIMPACT Member Subscriber Plan / Payer (Ef fective for All Dates) Name:Jacquelyn Tineo Relation to Subscriber:Self Name:Jacquelyn Tineo Payer ID:Not on file Group ID:[id number] Type:RX Commercial Address: [address]
--- OUTSIDE RECORDS SUMMARY | 2024-08-29 08:24 | XMS_ITS | Encounter Summary ---
Author Organization [facility] Address [address] [place] [address] Care Team Providers Care Fisher Mussel Name Role Phone Unavailable Primary Care Provider Unavailabl e Encounter Details Date Type Department Care Team (Late st Contact Info) Description 10/11/2006 Inpatient Historical [facility] Bel Lezama MD [address] [place] [address] Aida Johnson MD [address] [facility] [address] [address] Diffuse Cystic Mastopathy (Primary Dx) Social History Tobacco Use Types Packs/Day Years Used Date Smoking Tobacco: Never Assessed Comments Unknown Sex and Gender Information Value Date Recorded Sex Assigned at Not on file Legal Sex Female 3:34 AM COOK FRY Gender Identity Not on file Sexual Orientation Not on file documented as of this encounter Plan of Treatment Not on file documented as of this encounter Visit Diagnoses Diagnosis Diffuse cystic mastopathy- Primary documented in this encounter
--- OUTSIDE RECORDS SUMMARY | 2024-08-29 08:24 | XMS_ITS | Clinical Summary ---
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
--- OUTSIDE RECORDS SUMMARY | 2024-08-29 08:24 | XMS_ITS | Continuity of Care Document ---
Author Organization [facility] Address [address] [place] [address] Phone Care Team Providers Care Hse Advisor Name Role Phone Flaca Bernstein DO Unavailable Unavailable Allergies, Adverse Reactions, Alerts Substance Reaction Status Criticality No Known Allergies Active No Inform ation Medications Medication Instructions Dosage Effective Dates (start - stop) Status Comments ergocalciferol (vitamin D2) 50,000 unit capsule take 1 capsule by oral route every week 93410 UNITS - Active omeprazole 20 mg capsule,delayed [...] Diagnoses Date Provider Providers Copied on Encounter [facility], [address], [place], [place], [address] , [place] tel: [phone] [facility] No Information Sep-0 3-201 9 Day Thayer. [address] [place], [place], [id number] , [place]. tel: [phone] [facility] [address], [place], [place], [address] , tel: [phone] [facility] No Information 9 Tenzin Jerome. [address] [place] [address], [address], . tel: [phone] [facility], [address], [place], [place], [address] , tel: [phone] [facility] Chronic Conditions (chief complaint) Body mass index (BMI) 45.0-49.9, adultMorbid (severe) obesity due to excess caloriesVitamin D deficiency, unspecifiedGERD without esophagitisPrediab etesMild episode of recurrent major depressive disorderEncntr screen mammogram for malignant neoplasm of breast 9 Jovani Joyce. [address] [place] [address], [id number] , [place]. tel: [phone] Referring Provider: Flaca Williamson, [address] [place] [address], [address] . tel:[phone] [facility], [address], [place], [place], [address] , tel: [phone] [facility] Morbid (severe) obesity due to excess caloriesVertigoVit ferguson D deficiency, unspecifiedDaytime somnolence 8 Day Thayer. [address] [place] [address], [id number] , [place]. tel: [phone] Referring Provider: Flaca Williamson, [address] [place] [address], [address] . tel:[phone] [facility], [address], [place], [place], [address] , tel: [phone] [facility] Morbid (severe) obesity due to excess caloriesVitamin D deficiency, unspecifiedDaytime somnolenceAnxietyB ilateral lower extremity edema 7 Day Thayer. [address] [place] [address], [id number] , . tel: [phone] Referring Provider: Flaca Williamson, [address] [place] [address], [address] . tel:[phone] [facility], [address], [place], [place], [address] , tel: [phone] [facility] Internal [facility] Morbid (severe) obesity due to excess caloriesNumbness and tingling of left lower extremityHistory of foot surgery Tenzin Gaylin. [address] [place] [address], [address], [place]. tel: [phone] Referring Provider: Flaca Williamson, [address] [place] [address], [address] . tel:[phone] [facility], [address], [place], [place], [address] , tel: [phone] [facility] Shortness of breath Day Thayer. [address] [place] [address], [id number] , [place]. tel: [phone] [facility], [address], [place], [place], [address] , tel: [phone] [facility] Morbid (severe) obesity due to excess caloriesBody mass index (BMI) 40.0-44.9, adultVitamin D deficiency, unspecifiedDaytime somnolence Day Thayer. [address] [place] [address], [id number] , [place]. tel: [phone] [facility], [address], [place], [place], [address] , tel: [phone] [facility] Body mass index (BMI) 40.0-44.9, adultMorbid (severe) obesity due to excess caloriesVitamin D deficiency, unspecifiedLower respiratory infection (e.g., bronchitis, pneumonia, pneumonitis, pulmonitis)Daytime somnolenceEncntr screen mammogram for malignant neoplasm of breastSleep apnea in adult 7 Day Thayer. [address] [place] [address], [id number] , [place]. tel: [phone] Referring Provider: Flaca Williamson, [address] [place] [address], [address] . tel:[phone] [facility], [address], [place], [place], [address] , tel: [phone] [facility] Vitamin D deficiency, unspecifiedMorbid obesity due to excess caloriesAnxietyUri nary frequencyScreening for malignant neoplasm of breast 6 Day Thayer. [address] [place] [address], [id number] , [place]. tel: [phone] Referring Provider: Flaca Williamson, [address] [place] [address], [place], [address] . tel:[phone] [facility], [address], [place], [place], [address] , [place] tel: [phone] [facility] Vitamin D deficiency, unspecifiedMorbid obesity due to excess calories 6 Day Thayer. [address] [place] [address], [id number] , [place]. tel: [phone] Referring Provider: Flaca Williamson, [address] [place] [address], [place], [address] . tel:[phone] [facility], [address], [place], [place], [address] , [place] tel: [phone] [facility] Daytime somnolenceOther fatigueMorbid obesity due to excess calories 6 Day Thayer. [address] [place] [address] [place], [address] , [place]. tel: [phone] Referring Provider: Flaca Williamson, [address] [place] [address], [address] . tel: [facility], [address], [place], [place], [address] , tel: [phone] [facility] Unspecified urinary incontinence 0-201 6 [place] Laura. [address] [place] [address], [id number] , . tel: [phone] Referring Provider: Flaca Williamson, [address] [place] [address], [address] . tel: [facility], [address], [place], [place], [address] , tel: [phone] [facility] Vitamin D deficiency, unspecifiedSnoring 1 4-201 5 [place] Laura. [address] [place] [address], [id number] , [place]. tel: [phone] Referring Provider: Flaca Williamson, [address] [place] [address], [address] . tel: [facility], [address], [place], [place], [address] , tel: [phone] [facility] Vitamin D deficiency, unspecifiedPain in left finger(s)Menopausa l and female climacteric statesSnoring 0 9-201 5 Day Thayer. [address] [place] [address], [id number] , [place]. tel: [phone] Referring Provider: Flaca Williamson, [address] [place] [address], [address] . tel: [facility], [address], [place], [place], [address] , tel: [phone] [facility] Pain in finger 5-201 5 [place] Laura. [address] [place] [address], [id number] , [place]. tel: [phone] [facility], [address], [place], [place], [address] , [place] tel: [phone] [facility] Pain in finger 5 Day Thayer. [address] [place] [address], [id number] , [place]. tel: [phone] [facility], [address], [place], [place], [address] , [place] tel: [phone] [facility] ObesityUnspecified vitamin d deficiencyRoucleveland [facility] exam 5 Day Thayer. [address] [place] [address], [id number] , [place]. tel: [phone] Referring Provider: Flaca Williamson, [address] [place] [address], [address] . tel: [facility], [address], [place], [place], [address] , [place] tel: [phone] [facility] ObesityAbnormal mammogramFollow-up fracture care for healing fractureUnspecifie d vitamin d deficiency Day Thayer. [address] [place] [address], [id number] , [place]. tel: [phone] Referring Provider: Flaca Williamson, [address] [place] [address], [address] . tel: [facility], [address], [place], [place], [address] , [place] tel: [phone] [facility] Proteinuria 5 Day Thayer. [address] [place] [address], [id number] , [place]. tel: [phone] Referring Provider: Flaca Williamson, [address] [place] [address], [address] . tel: [facility], [address], [place], [place], [address] , [place] tel: [phone] [facility] Follow-up fracture care for healing fractureAbnormal mammogramUnspecifi ed vitamin d deficiencyMenopaus al or female climacteric statesObesity 4 Day Thayer. [address] [place] [address], [id number] , [place]. tel: [phone] Referring Provider: Flaca Williamson, [address] [place] [address], [place], [address] . tel: [facility], [address], [place], [place], [address] , [place] tel: [phone] [facility] Routine medical examPrediabetes 4 Day Thayer. [address] [place] [address], [id number] , [place]. tel: [phone] Referring Provider: Flaca Williamson, [address] [place] [address], [place], [address] . tel: [facility], [address], [place], [place], [address] , [place] tel: [phone] [facility] Abdominal crampingProteinuri aUnspecified vitamin d deficiencyMenopaus al or female climacteric states 4 Day Thayer. [address] [place] [address], [id number] , [place]. tel: [phone] Referring Provider: Flaca Williamson, [address] [place] [address], [place], [address] . tel:[phone] [facility], [address], [place], [place], [address] , [place] tel: [phone] [facility] Unspecified vitamin d deficiencyDizzines sHot flashes 3 Day Thayer. [address] [place] [address], [id number] , [place]. tel: [phone] Referring Provider: Flaca Williamson, [address] [place] [address], [place], [address] . tel: [facility], [address], [place], [place], [address] , tel: [phone] [facility] Dizziness Feb-1 1 3 Day Thayer. [address] [place] [address], [id number] , . tel: [phone] Referring Provider: Flaca Williamson, [address] [place] [address], [address] . tel: [facility], [address], [place], [place], [address] , tel: [phone] [facility] Dizziness and giddinessProteinur iaUnspecified vitamin d deficiencyHypoglyc emia Sep-0 6 3 Day Thayer. [address] [place] [address], [id number] , [place]. tel: [phone] Referring Provider: Flaca Williamson, [address] [place] [address], [address] . tel: [facility], [address], [place], [place], [address] , tel: [phone] [facility] Urinary incontinenceDizzin essCephalgia Reilly-0 5201 3 Day Thayer. [address] [place] [address], [id number] , [place]. tel: [phone] Referring Provider: Flaca Williamson, [address] [place] [address], [address] . tel: [facility], [address], [place], [place], [address] , tel: [phone] [facility] DizzinessUrinary incontinence October-2 8 3 Day Thayer. [address] [place] [address], [id number] , . tel: [phone] Referring Provider: Flaca Williamson, [address] [place] [address], [address] . tel:[phone] [facility], [address], [place], [place], [address] , tel: [phone] [facility] ProteinuriaUnspeci fied vitamin d deficiencyEdema Sep- 3 Day Thayer. [address] [place] [address], [id number] , . tel: [phone] Referring Provider: Flaca Williamson, [address] [place] [address], [address] . tel:[phone] [facility], [address], [place], [place], [address] , tel: [phone] [facility] ProteinuriaEdemaEs ophageal refluxVitamin d deficiency Sep- 3 Day Thayer. [address] [place] [address], [id number] , . tel: [phone] Referring Provider: Flaca Williamson, [address] [place] [address], [address] . tel:[phone] [facility], [address], [place], [place], [address] , tel: [phone] [facility] GERD (gastroesophageal reflux disease)Proteinuri aBilateral lower extremity edema Fe- 3 Day Thayer. [address] [place] [address], [id number] , . tel: [phone] Referring Provider: Flaca Williamson, [address] [place] [address], [address] . tel:[phone] Family History Family Member Type Diagnosis Age [...] Source: New Immuniza tion Record Fluzone Quad [id number], split virus, 0.5mL dosage administered Source: New Im munization Record influenza, injectable, quadrivalent, (3 years or older) refused Source: New Immuniza tion Record flu (split) (3 yrs or older) administered Source: Source Unspecified flu (split) (3 yrs or older) administered Source: Other Provider Payers Payer name Insurance type Covered libertarian ID Authoriza tion(s) [place] OUT OF [place] BL [id number] [facility] [id number] [facility] [id number] Social History Type Description Quantity Date Captured [...] guidance, and counseling completed Referral Referred To: [address] [place] [address] Dr [place], [id number] Ordered: Screening mammography of both breasts Appointment date/timeframe: 09/07/2018 ordered Future Order: Lab Order Vitamin B12 ([id number]), Collected on: , Sent on: Sent Future Order: Lab Order Folic Ac id (Folate), Serum ([id number]), Collected on: , Sent on: Sent Future Order: Lab Order Sed rate ([id number]), Collected on: , Sent on: Sent Future Order: Lab Order CBC AUTO DIFF ([id number]), Collected on: , Sent on: Sent Future Order: Lab Order Uric Aci d ([id number]), Collected on: , Sent on: Sent History [...] 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
--- OUTSIDE RECORDS SUMMARY | 2024-08-29 08:24 | XMS_ITS | Clinical Summary ---
Author Organization [facility] Address [address] [place] [address] Care Team Providers Care Behavior Clinician Name Role Phone Unavailable Primary Care Provider [...] season) 2024 Influenza Adult (#1) 2024 Meningococcal B Vaccine Aged Out No l onger eligible based on patient's age to complete this topic Meningococcal Vaccine Aged Out No seng sadie [...]
[2024-08-29 13:20] LABS: Hematocrit 44.9 % (37.0-47.0); Hemoglobin 14.1 g/dL (12.0-15.0); Mean Corpuscular HGB Conc 31.4 g/dl (32-36); Mean Corpuscular Hemoglobin 26.8 pg (26-34); Mean Corpuscular Volume 85.2 fl (80-100); Mean Platelet Volume 11.6 fl (7.4-10.4); Platelet Count Result 283 k/mm3 (150-375); Red Blood Count 5.27 M/mm3 (4.2-5.4); Red Cell Distribution Width 16.8 % (11.5-14.5); White Blood Count 7.1 K/mm3 (4.5-10.0)
[2024-08-29 14:03] LABS: Creatinine Urine 146.1 mg/dL
[2024-08-29 14:06] LABS: MALB Creatinine Ratio 65.5 mg/g (0-30); Microalbumin Urine Random 95.7 mg/L (0-16.7)
[2024-08-29 14:26] LABS: Hemoglobin A1C 5.9 % (<5.7)
[2024-08-29 15:04] LABS: Alanine Aminotransferase 36 U/L (6-35); Albumin Level 4.4 g/dL (3.5-5.1); Alkaline Phosphatase 76 U/L (38-126); Anion Gap 12 mmol/L (4-12); Aspartate Amino Transferase 42 U/L (14-36); Bilirubin,Total 0.5 mg/dL (0.2-1.3); Blood Urea Nitrogen 15 mg/dL (7-17); Carbon Dioxide 24 mmol/L (22-30); Chloride 105 mmol/L (98-107); Cholesterol 189 mg/dL (0-200); Estimated Glomerular Filt Rate 49; Glucose 75 mg/dL (65-110); HDL Direct 55 mg/dL; Potassium 4.2 mmol/L (3.4-5.0); Sodium 141 mmol/L (137-145); Triglycerides 64 mg/dL (<150)
[2024-08-29 15:15] LABS: LDL Cholesterol Direct 92 mg/dL
[2024-08-29 15:16] LABS: Vitamin D 25 Hydroxy 18.8 ng/mL
== END 2024-08-29 08:14 | disposition home or self-care (01) ==
LOC: ANHGOSHLAB 08:13
PROVIDERS: PCP Family Medicine; Visit Provider Nurse Practitioner
DX: Z00.00 Encounter for general adult medical examination without abnormal findings (principal); R73.03 Prediabetes; R80.9 Proteinuria, unspecified; E55.9 Vitamin D deficiency, unspecified
CPT/HCPCS: 36415; 80053; 80061; 82043; 82306; 83036; 84443; 85027

== ENCOUNTER 2024-10-22 07:41 | Outpatient (CLI) | payer OTHER, SELFPAY ==
--- NOTE | ~2024-10-22 | US_ITS ---
COMPLETE ABDOMINAL ULTRASOUND Ordering provider: HECTOR Boyd History: . R74.8 - Abnormal levels of other serum enzymes . Comparison: None. FINDINGS: LIVER: Normal size and increased echogenicity. The liver measures 14.2 cm. No focal hepatic lesions o r perihepatic fluid collections are identified. Portal vein flow is normal. GALLBLADDER: Unremarkable. No evidence for stones, sludge, gallbladder wall thickening or pericholecy stic fluid collections. A negative sonographic Witt's sign was noted. BILIARY DUCTS: No evidence for intra or extrahepatic biliary dilation. Common bile duct measures 3 mm in diameter which is within normal limits. PANCREAS: Normal echotexture and size of the visualized portion of. SPLEEN: Normal size, echotexture and contour and measures 7.4 cm in length. KIDNEYS: Right measures 9.1x 3.9x 3.8 cm in length and the left 9.8x 1.6x 5 cm in length. There is no evidence for hydronephrosis, solid renal mass, renal calculi or perinephric fluid collections. No re nal cysts. UPPER ABDOMINAL AORTA: Normal in caliber. IVC: Patent. FREE FLUID: None. IMPRESSION: Fat infiltration of the liver. Otherwise, Unremarkable complete ultrasound of the abdomen. Reviewed, dictated and finalized at location A.
== END 2024-10-22 07:42 | disposition home or self-care (01) ==
PROVIDERS: PCP Internal Medicine Nephrology; Visit Provider Nurse Practitioner
DX: R74.8 Abnormal levels of other serum enzymes (principal); K76.0 Fatty (change of) liver, not elsewhere classified
CPT/HCPCS: 76700

== ENCOUNTER 2024-11-15 12:51 | Outpatient (CLI) | payer OTHER, SELFPAY ==
--- OUTSIDE RECORDS SUMMARY | 2024-11-15 13:23 | XMS_ITS | Encounter Summary ---
[facility] Address [address] [place] [address] Care Team Providers Care Motor Pool Driver Name Role Phone Unavailable Primary Care Provider Unavailabl e Encounter Details Date Type Department Care Team (Late st Contact Info) Description 10/11/2006 Inpatient Historical HIS [facility] Bel Lezama MD [address] [facility] [address] [place] [address] Aida Johnson MD [address] [facility] [address] [address] Diffuse Cystic Mastopathy (Primary Dx) Social History Tobacco Use Types Packs/Day Years Used Date Smoking Tobacco: Never Assessed Comments Unknown Sex and Gender Information Value Date Recorded Sex Assigned at Not on file 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
--- OUTSIDE RECORDS SUMMARY | 2024-11-15 13:23 | XMS_ITS | Clinical Summary ---
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 Gender Identity Not on file Sexual Orientation Not on file Last Filed Vital Signs Vital Sign Reading Time Taken Comments Blood Pressure 112/80 08/02/2018 11:22 AM MASTER PLUMBER Pulse - - Temperature - - Respiratory Rate - - Oxygen Saturation - - Inhaled Oxygen Concentration - - Weight 99.5 kg (219 lb 6.4 oz) 08/02/2018 11:22 AM MASTER PLUMBER Height 149.9 cm (4' 11) 08/02/2018 11:22 AM MASTER PLUMBER Body Mass Index 44.31 08/02/2018 11:22 AM MASTER PLUMBER Plan of Treatment Health Maintenance Due Date Last Done Comments DTAP/TDAP/TD VACCINES (1 - Tdap) 1985 HEPATITIS B VACCINES (1 of 3 - 19+ 3-dose series) 02/1985 HPV/Cotest (21-29) 1987 CERVICAL CANCER SCREENING 1996 HPV/Cotest (30-65) 1996 PAP SMEAR 1996 BREAST CANCER SCREENING 2006 FIT-DNA Q 3 years 2011 FIT/FOBT Q 1 year 2011 Flex Sig/CT Colonography Q 5 years 2011 ZOSTER VACCINE (1 of 2) 2016 INFLUENZA VACCINE (#1) 2024 COLORECTAL SCREENING 06/21/2026 06/21/2016 Colorectal Cancer Screening 06/21/2026 Insurance BCBS BLUE ACCESS/TRUE BLUE PPO RX MEDIMPACT Member Subscriber Plan / Payer (Ef fective for All Dates) Name:Jacquelyn Tineo Relation to Subscriber:Self Name:Jacquelyn Tineo Payer ID:Not on file Group ID:[id number] Type:RX Commercial Address: [address]
--- OUTSIDE RECORDS SUMMARY | 2024-11-15 13:23 | XMS_ITS | Clinical Summary ---
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 Gender Identity Not on file Sexual Orientation Not on file Plan of Treatment Health Maintenance Due Date Last Done Comments Hepatitis C Virus (HCV) Screening 1966 TdaP Immunization 1966 Hepatitis B Immunization (1 of 3 - 19+ 3-dose series) 1985 Colonoscopy 2011 Colorectal Cancer Screening 2011 Cologuard 2016 Immunochemical Fecal Occult Blood 2016 Pneumococcal Immunization (5 0+ years) (1 of 1 - PCV) 2016 Zoster Immunization (1 of 2) 2016 SARS-COV-2 Immunization (3 - season) 2024 12/04/2020, 11/14/2020 Influenza Immunization (Seas on Ended) 2025 07/12/2018, 04/13/2013 Respiratory Syncytial Virus (RSV) Immunization (Adult) (1 - 1-dose 75+ series) 2041 Human Papillomavirus (HPV) Immunization Aged Out No longer eligible b ased on patient's age to complete this topic Meningococcal Immunization (ACWY) Aged Out No longer eligible b ased on patient's age to complete this topic Rotavirus Immunization Aged Out No lo nger eligible based on patient's age to complete this topic
--- OUTSIDE RECORDS SUMMARY | 2024-11-15 13:23 | XMS_ITS | Clinical Summary ---
Author Organization [facility] Address [address] [place] [address] Care Team Providers Care Tunnel Kiln Operator Name Role Phone Flaca Bernstein DO Primary Care Provider [phone] Source Comments [facility] [employer],non-owned Affiliates and Associated Physician Practices is amultiple site organization consisting of ambulatory clinics and hospital sitesin [place], [place], [place] and [place]. This disclosure is being madepursuant to the Care Everywhere program and may not contain all information available regarding this patient. Last updated 18.[employer] Allergies No known active allergies Medications * Be aware that medications may not be up to date on this document. Alwaysverify current medications with the patient. omeprazole (PRILOSEC) 40 MG capsule Take 40 mg by mouth daily before breakfast Active vitamin D, ergocalciferol, (DRISDOL) 14657 UNITS capsule Take 50,000 Units by mouth every 7 days Active Active Problems No known active problems Social History Tobacco Use Types Packs/Day Years Used Date Smoking Tobacco: Never Smokeless Tobacco: Never Alcohol Use Standard Drinks/Week Comments Yes 0 (1 standard drink = 0.6 oz pur e alcohol) occasional cocktail Comments No Sex and Gender Information Value Date Recorded Sex Assigned at Not on file Legal Sex Female 6:07 AM APPLICATIONS PROJECT MANAGER Gender Identity Not on file Sexual Orientation Not on file Last Filed Vital Signs Vital Sign Reading Time Taken Comments Blood Pressure 130/74 06/21/2016 10:45 AM APPLICATIONS PROJECT MANAGER Pulse 86 06/21/2016 10:45 AM APPLICATIONS PROJECT MANAGER Temperature 36.2 C (97.2 F) 06/21/2016 10:31 AM APPLICATIONS PROJECT MANAGER Respiratory Rate 18 06/21/2016 10:45 AM APPLICATIONS PROJECT MANAGER Oxygen Saturation 99% 06/21/2016 10:45 AM APPLICATIONS PROJECT MANAGER Inhaled Oxygen Concentration - - Weight 100.7 kg (222 lb) 06/21/2016 9:26 AM APPLICATIONS PROJECT MANAGER Height 149.9 cm (4' 11) 06/21/2016 9:26 AM APPLICATIONS PROJECT MANAGER Body Mass Index 44.84 06/21/2016 9:26 AM APPLICATIONS PROJECT MANAGER Plan of Treatment Health Maintenance Due Date Last Done Comments COLOGUARD (AGES 45-75) - COL ON CA SCREENING 1966 CT COLONOGRAPHY - COLON CA SCREENING 1966 FIT - COLON CA SCREENING 1966 FLEX SIG - COLON CA SCREENING 1966 LIPID TESTING 1966 MAMMOGRAM 1966 HIV SCREENING 1981 HEPATITIS C SCREENING 05/16/1984 DTAP/TDAP/TD VACCINES (1 - Tdap) 1985 HEPATITIS B VACCINE (1 of 3 - 19+ 3-dose series) 1985 PNEUMOCOCCAL VACCINE 50+ (1 of 1 - PCV) 2016 ZOSTER VACCINE (1 of 2) 2016 COVID-19 VACCINE (1 - 2023-2 5 season) 2024 DEPRESSION SCREENING 06/13/2024 INFLUENZA VACCINE (Season Ended) 2025 COLON MONITORING 06/21/2026 06/21/2016, 06/21/2016 COLONOSCOPY - [...] ENDOSCOPY, COLON, SCREENING Routine 06/21/2016 9:36 AM APPLICATIONS PROJECT MANAGER from Last 3 Months or Most Recently Relevant to Health Maintenance Results * ENDOSCOPY, COLON, SCREENING (06/21/2016 9:36 AM APPLICATIONS PROJECT MANAGER) Report Endoscopy POC __ _ Patient Name: [...] malignant neoplasm of colon CPT copyright 2015 [employer]. All rights reserved. The codes documented in this report are preliminary and upon community coordinator for high school review may be revised to meet current compliance requirements. Ted Carlos MD __ Ted Carlos MD 06/21/2016 10:23:28 AM This report has been signed electronically. Number of Addenda: 0 Note Initiated On: 06/21/2016 9:36 AM [facility] 06/21/2016 9:36 AM APPLICATIONS PROJECT MANAGER Ted Carlos MD GI PROCEDURE ORDERABLES Ed ited Result - [place] [address] from Last 3 Months or Most Recently Relevant to Health Maintenance Insurance [facility] Care Teams Tunnel Kiln Operator Relationship Specialty Start Date End Date Flaca Bernstein DO PCP - General Internal Medicine 06/21/16
--- OUTSIDE RECORDS SUMMARY | 2024-11-15 13:23 | XMS_ITS | Continuity of Care Document ---
Author Organization [facility] Address [address] [place] [address] Phone Care Team Providers Care Heavy Equipment Operator/Paver Name Role Phone Flaca Bernstein DO Unavailable Unavailable Allergies, Adverse Reactions, Alerts Substance Reaction Status Criticality No Known Allergies Active No Inform ation Medications Medication Instructions Dosage Effective Dates (start - stop) Status Comments ergocalciferol (vitamin D2) 50,000 unit capsule take 1 capsule by oral route every week 67555 UNITS - Active omeprazole 20 mg capsule,delayed [...] Diagnoses Date Provider Providers Copied on Encounter [facility], [address], [place], [place], [id number] , [place] tel: [phone] [facility] No Information Sep-0 3-201 9 Day Thayer. [address] [place], [place], [id number] , [place]. tel: [phone] [facility] [address], [place], [place], [address] , tel: [phone] [facility] Internal Medicine No Information 9 Tenzin Jerome. [address] [place] [address], [address], . tel: [phone] [facility], [address], [place], [place], [address] , tel: [phone] [facility] Internal Medicine Chronic Conditions (chief complaint) Body mass index (BMI) 45.0-49.9, adultMorbid (severe) obesity due to excess caloriesVitamin D deficiency, unspecifiedGERD without esophagitisPrediab etesMild episode of recurrent major depressive disorderEncntr screen mammogram for malignant neoplasm of breast 9 Jovani Joyce. [address] [place] [address], [id number] , [place]. tel: [phone] Referring Provider: Flaca Williamson, [address] [place] [address], [address] . tel:[phone] [facility], [address], [place], [place], [address] , tel: [phone] [facility] Medicine Morbid (severe) obesity due to excess caloriesVertigoVit ferguson D deficiency, unspecifiedDaytime somnolence 8 Day Thayer. [address] [place] [address], [id number] , [place]. tel: [phone] Referring Provider: Flaca Williamson, [address] [place] [address], [address] . tel:[phone] [facility], [address], [place], [place], [address] , tel: [phone] [facility] Medicine Morbid (severe) obesity due to excess caloriesVitamin D deficiency, unspecifiedDaytime somnolenceAnxietyB ilateral lower extremity edema 7 Day Thayer. [address] [place] [address], [id number] , . tel: [phone] Referring Provider: Flaca Williamson, [address] [place] [address], [address] . tel:[phone] [facility], [address], [place], [place], [address] , tel: [phone] [facility] Internal [facility] Morbid (severe) obesity due to excess caloriesNumbness and tingling of left lower extremityHistory of foot surgery Tenzin Gaylin. [address] [place] [address], [address], [place]. tel: [phone] Referring Provider: Flaca Williamson, [address] [place] [address], [address] . tel:[phone] [facility], [address], [place], [place], [address] , tel: [phone] [facility] Shortness of breath Day Thayer. [address] [place] [address], [id number] , [place]. tel: [phone] [facility], [address], [place], [place], [address] , tel: [phone] [facility] Morbid (severe) obesity due to excess caloriesBody mass index (BMI) 40.0-44.9, adultVitamin D deficiency, unspecifiedDaytime somnolence Day Thayer. [address] [place] [address], [id number] , [place]. tel: [phone] [facility], [address], [place], [place], [address] , tel: [phone] [facility] Medicine Body mass index (BMI) 40.0-44.9, adultMorbid (severe) obesity due to excess caloriesVitamin D deficiency, unspecifiedLower respiratory infection (e.g., bronchitis, pneumonia, pneumonitis, pulmonitis)Daytime somnolenceEncntr screen mammogram for malignant neoplasm of breastSleep apnea in adult 7 Day Thayer. [address] [place] [address], [id number] , [place]. tel: [phone] Referring Provider: Flaca Williamson, [address] [place] [address], [address] . tel:[phone] [facility], [address], [place], [place], [address] , tel: [phone] [facility] Vitamin D deficiency, unspecifiedMorbid obesity due to excess caloriesAnxietyUri nary frequencyScreening for malignant neoplasm of breast 6 Day Thayer. [address] [place] [address], [id number] , [place]. tel: [phone] Referring Provider: Flaca Williamson, [address] [place] [address], [place], [address] . tel:[phone] [facility], [address], [place], [place], [address] , [place] tel: [phone] [facility] Vitamin D deficiency, unspecifiedMorbid obesity due to excess calories 6 Day Thayer. [address] [place] [address], [id number] , [place]. tel: [phone] Referring Provider: Flaca Williamson, [address] [place] [address], [place], [address] . tel:[phone] [facility], [address], [place], [place], [address] , [place] tel: [phone] [facility] Daytime somnolenceOther fatigueMorbid obesity due to excess calories 6 Day Thayer. [address] [place] [address] [place], [id number] , [place]. tel: [phone] Referring Provider: Flaca Williamson, [address] [place] [address], [address] . tel: [facility], [address], [place], [place], [address] , tel: [phone] [facility] Unspecified urinary incontinence 0-201 6 Day Laura. [address] [place] [address], [id number] , . tel: [phone] Referring Provider: Flaca Williamson, [address] [place] [address], [address] . tel: [facility], [address], [place], [place], [address] , tel: [phone] [facility] Vitamin D deficiency, unspecifiedSnoring 1 4-201 5 [place] Laura. [address] [place] [address], [id number] , [place]. tel: [phone] Referring Provider: Flaca Williamson, [address] [place] [address], [address] . tel: [facility], [address], [place], [place], [address] , tel: [phone] [facility] Vitamin D deficiency, unspecifiedPain in left finger(s)Menopausa l and female climacteric statesSnoring 0 9-201 5 Day Thayer. [address] [place] [address], [id number] , [place]. tel: [phone] Referring Provider: Flaca Williamson, [address] [place] [address], [address] . tel: [facility], [address], [place], [place], [address] , tel: [phone] [facility] Pain in finger 5-201 5 [place] Laura. [address] [place] [address], [id number] , [place]. tel: [phone] [facility], [address], [place], [place], [address] , [place] tel: [phone] [facility] Pain in finger 5 Day Thayer. [address] [place] [address], [id number] , [place]. tel: [phone] [facility], [address], [place], [place], [address] , [place] tel: [phone] [facility] ObesityUnspecified vitamin d deficiencyRoust. charles hospital medical exam 5 Day Thayer. [address] [place] [address], [id number] , [place]. tel: [phone] Referring Provider: Flaca Williamson, [address] [place] [address], [address] . tel: [facility], [address], [place], [place], [address] , [place] tel: [phone] [facility] ObesityAbnormal mammogramFollow-up fracture care for healing fractureUnspecifie d vitamin d deficiency Day Thayer. [address] [place] [address], [id number] , [place]. tel: [phone] Referring Provider: Flaca Williamson, [address] [place] [address], [address] . tel: [facility], [address], [place], [place], [address] , [place] tel: [phone] [facility] Proteinuria 5 Day Thayer. [address] [place] [address], [id number] , [place]. tel: [phone] Referring Provider: Flaca Williamson, [address] [place] [address], [address] . tel: [facility], [address], [place], [place], [address] , [place] tel: [phone] [facility] Follow-up fracture care for healing fractureAbnormal mammogramUnspecifi ed vitamin d deficiencyMenopaus al or female climacteric statesObesity 4 Day Thayer. [address] [place] [address], [id number] , [place]. tel: [phone] Referring Provider: Flaca Williamson, [address] [place] [address], [place], [address] . tel: [facility], [address], [place], [place], [address] , [place] tel: [phone] [facility] Routine medical examPrediabetes 4 Day Thayer. [address] [place] [address], [id number] , [place]. tel: [phone] Referring Provider: Flaca Williamson, [address] [place] [address], [place], [address] . tel: [facility], [address], [place], [place], [address] , [place] tel: [phone] [facility] Abdominal crampingProteinuri aUnspecified vitamin d deficiencyMenopaus al or female climacteric states 4 Day Thayer. [address] [place] [address], [id number] , [place]. tel: [phone] Referring Provider: Flaca Williamson, [address] [place] [address], [place], [address] . tel:[phone] [facility], [address], [place], [place], [address] , [place] tel: [phone] [facility] Unspecified vitamin d deficiencyDizzines sHot flashes 3 Day Thayer. [address] [place] [address], [id number] , [place]. tel: [phone] Referring Provider: Flaca Williamson, [address] [place] [address], [place], [address] . tel: [facility], [address], [place], [place], [address] , tel: [phone] [facility] Dizziness Feb-1 1 3 Day Thayer. [address] [place] [address], [id number] , . tel: [phone] Referring Provider: Flaca Williamson, [address] [place] [address], [address] . tel: [facility], [address], [place], [place], [address] , tel: [phone] [facility] Dizziness and giddinessProteinur iaUnspecified vitamin d deficiencyHypoglyc emia Sep-0 6 3 Day Thayer. [address] [place] [address], [id number] , [place]. tel: [phone] Referring Provider: Flaca Williamson, [address] [place] [address], [address] . tel: [facility], [address], [place], [place], [address] , tel: [phone] [facility] Urinary incontinenceDizzin essCephalgia Reilly-0 5201 3 Day Thayer. [address] [place] [address], [id number] , [place]. tel: [phone] Referring Provider: Flaca Williamson, [address] [place] [address], [address] . tel: [facility], [address], [place], [place], [address] , tel: [phone] [facility] DizzinessUrinary incontinence October-2 8 3 Day Thayer. [address] [place] [address], [id number] , . tel: [phone] Referring Provider: Flaca Williamson, [address] [place] [address], [address] . tel:[phone] [facility], [address], [place], [place], [address] , tel: [phone] [facility] ProteinuriaUnspeci fied vitamin d deficiencyEdema Sep- 3 Day Thayer. [address] [place] [address], [id number] , . tel: [phone] Referring Provider: Flaca Williamson, [address] [place] [address], [address] . tel:[phone] [facility], [address], [place], [place], [address] , tel: [phone] [facility] ProteinuriaEdemaEs ophageal refluxVitamin d deficiency Sep- 3 Day Thayer. [address] [place] [address], [id number] , . tel: [phone] Referring Provider: Flaca Williamson, [address] [place] [address], [address] . tel:[phone] [facility], [address], [place], [place], [address] , tel: [phone] [facility] GERD (gastroesophageal reflux disease)Proteinuri aBilateral lower extremity edema Fe- 3 Day Thayer. [address] [place] [address], [id number] , . tel: [phone] Referring Provider: Flaca Williamson, [address] [place] [address], [address] . tel:[phone] Family History Family Member Type Diagnosis Age [...] Source: New Immuniza tion Record Fluzone Quad 3890-1252, split virus, 0.5mL dosage administered Source: New Im munization Record influenza, injectable, quadrivalent, (3 years or older) refused Source: New Immuniza tion Record flu (split) (3 yrs or older) administered Source: Source Unspecified flu (split) (3 yrs or older) administered Source: Other Provider Payers Payer name Insurance type Covered libertarian ID Authoriza tion(s) [place] OUT OF [place] BL [id number] [facility] [id number] [facility] [id number] Social History Type Description Quantity Date Captured [...] guidance, and counseling completed Referral Referred To: [address] [place] [address] Dr [place], [id number] [id number] Ordered: Screening mammography of both breasts Appointment date/timeframe: 09/07/2018 ordered Future Order: Lab Order Vitamin B12 ([id number]), Collected on: , Sent on: Sent Future Order: Lab Order Folic Ac id (Folate), Serum ([id number]), Collected on: , Sent on: Sent Future Order: Lab Order Sed rate ([id number]), Collected on: , Sent on: Sent Future Order: Lab Order CBC AUTO DIFF ([id number]), Collected on: , Sent on: Sent Future Order: Lab Order Uric Aci d ([id number]), Collected on: , Sent on: Sent History [...] 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
[2024-11-15 20:37] LABS: Albumin Level 4.2 g/dL (3.5-5.1); Anion Gap 12 mmol/L (4-12); Blood Urea Nitrogen 13 mg/dL (7-17); Calcium 9.9 mg/dL (8.4-10.2); Carbon Dioxide 21 mmol/L (22-30); Chloride 107 mmol/L (98-107); Estimated Glomerular Filt Rate 46; Glucose 82 mg/dL (65-110); Phosphorus 3.2 mg/dL (2.5-4.5); Potassium 3.9 mmol/L (3.4-5.0); Sodium 140 mmol/L (137-145)
[2024-11-15 20:51] LABS: Complement C3 202 mg/dL (88-165)
[2024-11-16 06:39] LABS: Creatinine Urine 165.3 mg/dL; Total Protein Urine Random 9 mg/dL; Ur Ttl Prot Creatinine Ratio 0.05 mg/mg (0-0.20)
[2024-11-16 08:28] LABS: Protein, Total 7.8 g/dL (6.1-8.1)
[2024-11-16 09:44] LABS: Creatinine, Random Urine 161 mg/dL (20-275); Total Prot/Creat ratio mg/mg 0.106 (0.024-0.184); Total Protein/Creatinine Ratio 106 mg/g creat (24-184)
[2024-11-19 12:49] LABS: Anti Glomerular Basement Memb <1.0 AI
[2024-11-20 15:34] LABS: ANCA Screen NEGATIVE (NEGATIVE)
== END 2024-11-15 12:52 | disposition home or self-care (01) ==
LOC: ANHGOSHLAB 12:53
PROVIDERS: PCP Family Medicine; Visit Provider Internal Medicine Nephrology
DX: N18.31 Chronic kidney disease, stage 3a (principal); R80.9 Proteinuria, unspecified
CPT/HCPCS: 36415; 80069; 82570; 83520; 84155; 84156; 84165; 84166; 86036; 86038; 86039; 86160; 86225

== ENCOUNTER 2024-12-18 14:54 | Outpatient (CLI) | payer OTHER, SELFPAY ==
--- OUTSIDE RECORDS SUMMARY | 2024-12-18 14:59 | XMS_ITS | Clinical Summary ---
Author Organization [email or web address] Address [address] [place] [address] Care Team Providers Care Corn Crop Supervisor Name Role Phone Unavailable Primary Care Provider [...] on file Legal Sex Female 3:34 AM NITROGLYCERIN NEUTRALIZER Gender Identity Not on file Sexual Orientation Not on file Last Filed Vital Signs Vital Sign Reading Time Taken Comments Blood Pressure 112/80 08/02/2018 11:22 AM NITROGLYCERIN NEUTRALIZER Pulse - - Temperature - - Respiratory Rate - - Oxygen Saturation - - Inhaled Oxygen Concentration - - Weight 99.5 kg (219 lb 6.4 oz) 08/02/2018 11:22 AM NITROGLYCERIN NEUTRALIZER Height 149.9 cm (4' 11) 08/02/2018 11:22 AM NITROGLYCERIN NEUTRALIZER Body Mass Index 44.31 08/02/2018 11:22 AM NITROGLYCERIN NEUTRALIZER Plan of Treatment Health Maintenance Due Date [...] (1 of 2) 2016 INFLUENZA VACCINE (#1) 2025 COLORECTAL SCREENING 06/21/2026 06/21/2016 Colorectal Cancer Screening 06/21/2026 Insurance BCBS BLUE ACCESS/TRUE BLUE PPO RX MEDIMPACT Member Subscriber Plan / Payer (Ef fective for All Dates) Name:Jacquelyn Tineo Relation to Subscriber:Self Name:Jacquelyn Tineo Payer ID:Not on file Group ID:[id number] Type:RX Commercial Address: [address]
--- OUTSIDE RECORDS SUMMARY | 2024-12-18 14:59 | XMS_ITS | Clinical Summary ---
Author Organization [facility] Address [address] [place] [address] Care Team Providers Care Radiology Manager Name Role Phone Unavailable Primary Care Provider [...] Screening with HPV 1996 Mammogram Screening 2006 Pneumococcal Vaccine: 50+ Ye ars (1 of 1 - PCV) 2016 Zoster Vaccines (1 of 2) 2016 COVID-19 Vaccine (2023-2 5 season) 2024 Meningococcal B Vaccine Aged Out No l onger eligible based on patient's age to complete this topic Meningococcal Vaccine Aged Out No seng sadie eligible based on patient's age to complete this topic RSV Immunizations Under 20 Months Aged Out No longer eligible based on patient's age to complete this topic
--- OUTSIDE RECORDS SUMMARY | 2024-12-18 14:59 | XMS_ITS | Clinical Summary ---
Author Organization [facility] Address [address] [place] [address] Care Team Providers Care Dental Front Office Assistant Name Role Phone Flaca Bernstein DO Primary Care Provider [phone] Source Comments [facility],non-owned Affiliates and Associated Physician Practices is amultiple site organization consisting of ambulatory clinics and hospital sitesin [place], [place], [place] and [place]. This disclosure is being madepursuant to the Care Everywhere program and may not contain all information available regarding this patient. Last updated 18.[facility] Allergies No known active allergies Medications * Be aware that medications may not be up to date on this document. Alwaysverify current medications with the patient. 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 Gender Identity Not on file Sexual Orientation Not on file Last Filed Vital Signs Vital Sign Reading Time Taken Comments Blood Pressure 130/74 06/21/2016 10:45 AM STRAIGHT TRUCK DRIVER Pulse 86 06/21/2016 10:45 AM STRAIGHT TRUCK DRIVER Temperature 36.2 C (97.2 F) 06/21/2016 10:31 AM STRAIGHT TRUCK DRIVER Respiratory Rate 18 06/21/2016 10:45 AM STRAIGHT TRUCK DRIVER Oxygen Saturation 99% 06/21/2016 10:45 AM STRAIGHT TRUCK DRIVER Inhaled Oxygen Concentration - - Weight 100.7 kg (222 lb) 06/21/2016 9:26 AM STRAIGHT TRUCK DRIVER Height 149.9 cm (4' 11) 06/21/2016 9:26 AM STRAIGHT TRUCK DRIVER Body Mass Index 44.84 06/21/2016 9:26 AM STRAIGHT TRUCK DRIVER Plan of Treatment Health Maintenance Due Date [...] ENDOSCOPY, COLON, SCREENING Routine 06/21/2016 9:36 AM STRAIGHT TRUCK DRIVER from Last 3 Months or Most Recently Relevant to Health Maintenance Results * ENDOSCOPY, COLON, SCREENING (06/21/2016 9:36 AM STRAIGHT TRUCK DRIVER) Report Endoscopy POC __ _ Patient Name: [...] malignant neoplasm of colon CPT copyright 2015 [employer]. All rights reserved. The codes documented in this report are preliminary and upon public policy professor review may be revised to meet current compliance requirements. Ted Carlos MD __ Ted Carlos MD 06/21/2016 10:23:28 AM This report has been signed electronically. Number of Addenda: 0 Note Initiated On: 06/21/2016 9:36 AM [facility] ENDOSCOPY 06/21/2016 9:36 AM STRAIGHT TRUCK DRIVER Ted Carlos MD GI PROCEDURE ORDERABLES Ed ited Result - [place] [address] from Last 3 Months or Most Recently Relevant to Health Maintenance Insurance [facility] Care Teams Dental Front Office Assistant Relationship Specialty Start Date End Date Flaca Bernstein DO PCP - General Internal Medicine 06/21/16
--- OUTSIDE RECORDS SUMMARY | 2024-12-18 14:59 | XMS_ITS | Clinical Summary ---
Author Organization [facility] Address [address] [place] [address] Phone Care Team Providers Care Gas Plant Technician Name Role Phone Unavailable Primary Care Provider Unavailabl e Social History Tobacco Use Types Packs/Day Years Used Date Smoking Tobacco: Never Assessed Comments Unknown Sex and Gender Information Value Date Recorded Sex Assigned at Not on file Legal Sex Female 7:53 PM BIG DATA SOLUTIONS ARCHITECT Gender Identity Not on file Sexual Orientation [...]
[2024-12-18 16:04] LABS: Hematocrit 44.4 % (37.0-47.0); Hemoglobin 13.9 g/dL (12.0-15.0); Mean Corpuscular HGB Conc 31.3 g/dl (32-36); Mean Corpuscular Hemoglobin 26.2 pg (26-34); Mean Corpuscular Volume 83.8 fl (80-100); Platelet Count Result 330 k/mm3 (150-375); Red Blood Count 5.30 M/mm3 (4.2-5.4); White Blood Count 9.2 K/mm3 (4.5-10.0)
[2024-12-18 16:22] LABS: Alanine Aminotransferase 37 U/L (6-35); Albumin Level 4.3 g/dL (3.5-5.1); Alkaline Phosphatase 71 U/L (38-126); Anion Gap 10 mmol/L (4-12); Aspartate Amino Transferase 41 U/L (14-36); Bilirubin,Total 0.4 mg/dL (0.2-1.3); Blood Urea Nitrogen 15 mg/dL (7-17); Calcium 9.8 mg/dL (8.4-10.2); Carbon Dioxide 25 mmol/L (22-30); Chloride 105 mmol/L (98-107); Estimated Glomerular Filt Rate 47; Glucose 97 mg/dL (65-110); Potassium 4.2 mmol/L (3.4-5.0); Sodium 140 mmol/L (137-145); Total Protein 8.9 g/dL (6.3-8.2)
== END 2024-12-18 14:55 | disposition home or self-care (01) ==
PROVIDERS: PCP Family Medicine; Visit Provider Nurse Practitioner
DX: R42 Dizziness and giddiness (principal)
CPT/HCPCS: 36415; 80053; 85027

== ENCOUNTER 2024-12-18 16:48 | Outpatient (CLI) | payer OTHER, SELFPAY ==
--- NOTE | ~2024-12-18 | CT_ITS ---
CTA brain carotid Ordering provider: BRIANNA BoydC History: . R42 - Dizziness and giddiness . Comparison: None. Technique: CT angiogram head and neck was performed following timed intravenous injection of contrast . Thin slice axial images and reformatted coronal images were obtained. Three dimensional reformatted images of the brain were also obtained using a [employer] workstation. Radiation reduction technique ut ilized.The dose-length product was 1704.05. mGy-cm. FINDINGS: HEAD: --ANTERIOR AND MIDDLE CEREBRAL ARTERIES AND BRANCHES: Absent right A1 segment. Otherwise Normal calib er and contour. --INTERNAL CAROTID ARTERIES: Normal caliber and contour. --BASILAR ARTERY AND BRANCHES: Slightly small caliber and normal contour. No atheromatous disease. --POSTERIOR CEREBRAL ARTERIES: Normal caliber and contour --POSTERIOR COMMUNICATING ARTERIES: The right continues as the posterior cerebral artery. 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 --ANEURYSM: None visualized. --BRAIN: Normal for patient's age. --BONES AND SUPERFICIAL SOFT TISSUES: Small lymph nodes seen in the left parotid the gland. Normal. --PARANASAL SINUSES AND MASTOIDS: Well aerated. NECK: --RIGHT CERVICAL CAROTID SYSTEM: Mild atheromatous disease of the carotid bulb and proximal internal carotid artery without significant stenosis. Percent stenosis per NASCET criteria is 0%. No carotid dissection. Otherwise, no significant atheromatous disease or stenosis of the cervical carotid system . --LEFT CERVICAL CAROTID SYSTEM: Normal caliber and contour. Percent stenosis per NASCET criteria is 0%. No carotid dissection. Otherwise, no significant atheromatous disease or stenosis of the cervical carotid system. --VERTEBRAL ARTERIES: Small caliber and normal contour. --VISUALIZED AORTIC ARCH AND BRANCHING VESSELS: Normal caliber and contour. No significant atheromato us disease. Dependent atelectatic changes seen in the lungs. --SOFT TISSUES: Normal. --CERVICAL SPINE: Age appropriate degenerative changes. IMPRESSION: 1. Normal CTA head. 2. CTA neck. Percent stenosis per NASCET criteria is 0%. Reviewed, dictated and finalized at location A.
--- OUTSIDE RECORDS SUMMARY | 2024-12-18 16:55 | XMS_ITS | Clinical Summary ---
Author Organization [facility] Address [address] [place] [address] Phone Care Team Providers Care Radiology Special Procedure Tech Name Role Phone Unavailable Primary Care Provider Unavailabl e Social History Tobacco Use Types Packs/Day Years Used Date Smoking Tobacco: Never Assessed Comments Unknown Sex and Gender Information Value Date Recorded Sex Assigned at Not on file Legal Sex Female 7:53 PM DIAMOND SORTER Gender Identity Not on file Sexual Orientation [...]
--- OUTSIDE RECORDS SUMMARY | 2024-12-18 16:55 | XMS_ITS | Clinical Summary ---
Author Organization [facility] Address [address] [place] [address] Care Team Providers Care Biomechanical Engineer Name Role Phone Unavailable Primary Care [...]
--- OUTSIDE RECORDS SUMMARY | 2024-12-18 16:55 | XMS_ITS | Encounter Summary ---
Author Organization [facility] Address [address] [place] [address] Care Team Providers Care Traffic Operator Name Role Phone Unavailable Primary Care Provider Unavailabl e Encounter Details Date Type Department Care Team (Late st Contact Info) Description 10/11/2006 Inpatient Historical HIS [facility] Bel Lezama MD [address] [facility] [address] [place] [address] Aida Johnson MD [address] 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
--- OUTSIDE RECORDS SUMMARY | 2024-12-18 16:56 | XMS_ITS | Clinical Summary ---
Author Organization [facility] Address [address] [place] [address] Care Team Providers Care Methods Examiner Name Role Phone Unavailable Primary Care Provider [...] on file Legal Sex Female 3:34 AM SPECIALTY FOODS COOK Gender Identity Not on file Sexual Orientation Not on file Last Filed Vital Signs Vital Sign Reading Time Taken Comments Blood Pressure 112/80 08/02/2018 11:22 AM SPECIALTY FOODS COOK Pulse - - Temperature - - Respiratory Rate - - Oxygen Saturation - - Inhaled Oxygen Concentration - - Weight 99.5 kg (219 lb 6.4 oz) 08/02/2018 11:22 AM SPECIALTY FOODS COOK Height 149.9 cm (4' 11) 08/02/2018 11:22 AM SPECIALTY FOODS COOK Body Mass Index 44.31 08/02/2018 11:22 AM SPECIALTY FOODS COOK Plan of Treatment Health Maintenance Due Date [...]
--- OUTSIDE RECORDS SUMMARY | 2024-12-18 16:56 | XMS_ITS | Clinical Summary ---
Author Organization [facility] Address [address] [place] [address] Care Team Providers Care Ward Secretary Name Role Phone Flaca Bernstein DO Primary Care Provider [phone] Source Comments [facility],non-owned Affiliates and Associated Physician Practices is amultiple site organization consisting of ambulatory clinics and hospital sitesin [place], [place], [place] and [place]. This disclosure is being madepursuant to the Care Everywhere program and may not contain all information available regarding this patient. Last updated 18.[facility] Allergies No known active allergies Medications * Be aware that medications may not be up to date on this document. Alwaysverify current medications with the patient. 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 WORKER Gender Identity Not on file Sexual Orientation Not on file Last Filed Vital Signs Vital Sign Reading Time Taken Comments Blood Pressure 130/74 06/21/2016 10:45 AM SOCIAL STAFF WORKER Pulse 86 06/21/2016 10:45 AM SOCIAL STAFF WORKER Temperature 36.2 C (97.2 F) 06/21/2016 10:31 AM SOCIAL STAFF WORKER Respiratory Rate 18 06/21/2016 10:45 AM SOCIAL STAFF WORKER Oxygen Saturation 99% 06/21/2016 10:45 AM SOCIAL STAFF WORKER Inhaled Oxygen Concentration - - Weight 100.7 kg (222 lb) 06/21/2016 9:26 AM SOCIAL STAFF WORKER Height 149.9 cm (4' 11) 06/21/2016 9:26 AM SOCIAL STAFF WORKER Body Mass Index 44.84 06/21/2016 9:26 AM SOCIAL STAFF WORKER Plan of Treatment Health Maintenance Due Date [...] ENDOSCOPY, COLON, SCREENING Routine 06/21/2016 9:36 AM SOCIAL STAFF WORKER from Last 3 Months or Most Recently Relevant to Health Maintenance Results * ENDOSCOPY, COLON, SCREENING (06/21/2016 9:36 AM SOCIAL STAFF WORKER) Report Endoscopy POC __ _ Patient Name: [...] malignant neoplasm of colon CPT copyright 2015 [employer] [place] [employer] [employer]. All rights reserved. The codes documented in this report are preliminary and upon medical records coder review may be revised to meet current compliance requirements. Ted Carlos MD __ Ted Carlos MD 06/21/2016 10:23:28 AM This report has been signed electronically. Number of Addenda: 0 Note Initiated On: 06/21/2016 9:36 AM [facility] ENDOSCOPY 06/21/2016 9:36 AM SOCIAL STAFF WORKER Ted Carlos MD GI PROCEDURE ORDERABLES Ed ited Result - [place] [address] from Last 3 Months or Most Recently Relevant to Health Maintenance Insurance [facility] Care Teams Ward Secretary Relationship Specialty Start Date End Date Flaca Bernstein DO PCP - General Internal Medicine 06/21/16
== END 2024-12-18 16:49 | disposition home or self-care (01) ==
PROVIDERS: PCP Family Medicine; Visit Provider Nurse Practitioner
DX: R42 Dizziness and giddiness (principal); H53.9 Unspecified visual disturbance
CPT/HCPCS: 70496; 70498; Q9967

== ENCOUNTER 2025-02-01 07:16 | Outpatient (CLI) | payer OTHER, SELFPAY ==
--- OUTSIDE RECORDS SUMMARY | 2019-02-13 05:14 | XMS_ITS | Continuity of Care Document ---
Author Organization [facility] Address [address] [place] [address] Phone Care Team Providers Care Granite Polisher Name Role Phone Flaca Bernstein DO Unavailable Unavailable Allergies, Adverse Reactions, Alerts Substance Reaction Status Criticality No Known Allergies Active No Inform ation Medications Medication Instructions Dosage Effective Dates (start - stop) Status Comments ergocalciferol (vitamin D2) 50,000 unit capsule take 1 capsule by oral route every week 69353 UNITS - Active omeprazole 20 mg capsule,delayed [...] Diagnoses Date Provider Providers Copied on Encounter [facility], [address], [place], [place], [id number] , [place] tel: [phone] [facility] No Information Sep-0 3-201 9 Day Thayer. [address], [place], [id number] , [place]. tel: [phone] [facility] [address], [place], [place], [address] , tel: [phone] [facility] No Information 9 Tenzin Jerome. [address] [place] [address], [address], . tel: [phone] [facility], [address], [place], [place], [address] , tel: [phone] [facility] Chronic Conditions (chief complaint) Body mass index (BMI) 45.0-49.9, adultMorbid (severe) obesity due to excess caloriesVitamin D deficiency, unspecifiedGERD without esophagitisPrediab etesMild episode of recurrent major depressive disorderEncntr screen mammogram for malignant neoplasm of breast 9 Jovani Joyce. [address] [place] [address], [id number] , [place]. tel: [phone] Referring Provider: Flaca Williamson, [address] [place] [address], [address] . tel:[phone] [facility], [address], [place], [place], [address] , tel: [phone] [facility] Morbid (severe) obesity due to excess caloriesVertigoVit ferguson D deficiency, unspecifiedDaytime somnolence 8 Day Thayer. [address] [place] [address], [id number] , [place]. tel: [phone] Referring Provider: Flaca Williamson, [address] [place] [address], [address] . tel:[phone] [facility], [address], [place], [place], [address] , tel: [phone] [facility] Morbid (severe) obesity due to excess caloriesVitamin D deficiency, unspecifiedDaytime somnolenceAnxietyB ilateral lower extremity edema 7 Day Thayer. [address] [place] [address], [id number] , . tel: [phone] Referring Provider: Flaca Williamson, [address] [place] [address], [address] . tel:[phone] [facility], [address], [place], [place], [address] , tel: [phone] [facility] Morbid (severe) obesity due to excess caloriesNumbness and tingling of left lower extremityHistory of foot surgery Tenzin Gaylin. [address] [place] [address], [address], [place]. tel: [phone] Referring Provider: Flaca Williamson, [address] [place] [address], [address] . tel:[phone] [facility], [address], [place], [place], [address] , tel: [phone] [facility] Shortness of breath Day Thayer. [address] [place] [address], [id number] , [place]. tel: [phone] [facility], [address], [place], [place], [address] , tel: [phone] [facility] Morbid (severe) obesity due to excess caloriesBody mass index (BMI) 40.0-44.9, adultVitamin D deficiency, unspecifiedDaytime somnolence Day Thayer. [address] [place] [address], [id number] , [place]. tel: [phone] [facility], [address], [place], [place], [address] , tel: [phone] [facility] Body mass index (BMI) 40.0-44.9, adultMorbid (severe) obesity due to excess caloriesVitamin D deficiency, unspecifiedLower respiratory infection (e.g., bronchitis, pneumonia, pneumonitis, pulmonitis)Daytime somnolenceEncntr screen mammogram for malignant neoplasm of breastSleep apnea in adult 7 Day Thayer. [address] [place] [address], [id number] , [place]. tel: [phone] Referring Provider: Flaca Williamson, [address] [place] [address], [address] . tel:[phone] [facility], [address], [place], [place], [address] , tel: [phone] [facility] Vitamin D deficiency, unspecifiedMorbid obesity due to excess caloriesAnxietyUri nary frequencyScreening for malignant neoplasm of breast 6 Day Thayer. [address] [place] [address], [id number] , [place]. tel: [phone] Referring Provider: Flaca Williamson, [address] [place] [address], [place], [address] . tel:[phone] [facility], [address], [place], [place], [address] , [place] tel: [phone] [facility] Vitamin D deficiency, unspecifiedMorbid obesity due to excess calories 6 Day Thayer. [address] [place] [address], [id number] , [place]. tel: [phone] Referring Provider: Flaca Williamson, [address] [place] [address], [place], [address] . tel:[phone] [facility], [address], [place], [place], [address] , [place] tel: [phone] [facility] Daytime somnolenceOther fatigueMorbid obesity due to excess calories 6 Day Thayer. [address] [place] [address] [place], [id number] , [place]. tel: [phone] Referring Provider: Flaca Williamson, [address] [place] [address], [address] . tel: [facility], [address], [place], [address] , tel: [phone] [facility] Unspecified urinary incontinence 0-201 6 Commerce Laura. [address] [place] [address], [id number] , . tel: [phone] Referring Provider: Flaca Williamson, [address] [place] [address], [address] . tel: [facility], [address], [place], [place], [address] , tel: [phone] [facility] Vitamin D deficiency, unspecifiedSnoring 1 4-201 5 Day Laura. [address] [place] [address], [id number] , [place]. tel: [phone] Referring Provider: Flaca Williamson, [address] [place] [address], [address] . tel: [facility], [address], [place], [address] , tel: [phone] [facility] Vitamin D deficiency, unspecifiedPain in left finger(s)Menopausa l and female climacteric statesSnoring 0 9-201 5 Day Thayer. [address] [place] [address], [id number] , [place]. tel: [phone] Referring Provider: Flaca Williamson, [address] [place] [address], [address] . tel: [facility], [address], [place], [address] , tel: [phone] [facility] Pain in finger 5-201 5 Day Laura. [address] [place] [address], [id number] , [place]. tel: [phone] [facility], [address], [place], [address] , [place] tel: [phone] [facility] Pain in finger 5 Day Thayer. [address] [place] [address], [id number] , [place]. tel: [phone] [facility], [address], [place], [place], [address] , [place] tel: [phone] [facility] ObesityUnspecified vitamin d deficiencyRoureg[facility] 5 Day Thayer. [address] [place] [address], [id number] , [place]. tel: [phone] Referring Provider: Flaca Williamson, [address] [place] [address], [address] . tel: [facility], [address], [place], [address] , [place] tel: [phone] [facility] ObesityAbnormal mammogramFollow-up fracture care for healing fractureUnspecifie d vitamin d deficiency Day Thayer. [address] [place] [address], [id number] , [place]. tel: [phone] Referring Provider: Flaca Williamson, [address] [place] [address], [address] . tel: [facility], [address], [place], [address] , [place] tel: [phone] [facility] Proteinuria 5 Day Thayer. [address] [place] [address], [id number] , [place]. tel: [phone] Referring Provider: Flaca Williamson, [address] [place] [address], [address] . tel: [facility], [address], [place], [address] , [place] tel: [phone] [facility] Follow-up fracture care for healing fractureAbnormal mammogramUnspecifi ed vitamin d deficiencyMenopaus al or female climacteric statesObesity 4 Day Thayer. [address] [place] [address], [id number] , [place]. tel: [phone] Referring Provider: Flaca Williamson, [address] [place] [address], [place], [address] . tel: [facility], [address], [place], [place], [address] , [place] tel: [phone] [facility] Routine medical examPrediabetes 4 Day Thayer. [address] [place] [address], [id number] , [place]. tel: [phone] Referring Provider: Flaca Williamson, [address] [place] [address], [place], [address] . tel: [facility], [address], [place], [address] , [place] tel: [phone] [facility] Abdominal crampingProteinuri aUnspecified vitamin d deficiencyMenopaus al or female climacteric states 4 Day Thayer. [address] [place] [address], [id number] , [place]. tel: [phone] Referring Provider: Flaca Williamson, [address] [place] [address], [place], [address] . tel:[phone] [facility], [address], [place], [place], [address] , [place] tel: [phone] [facility] Unspecified vitamin d deficiencyDizzines sHot flashes 3 Day Thayer. [address] [place] [address], [id number] , [place]. tel: [phone] Referring Provider: Flaca Williamson, [address] [place] [address], [place], [address] . tel: [facility], [address], [place], [address] , tel: [phone] [facility] Dizziness Feb-1 1 3 Day Thayer. [address] [place] [address], [id number] , . tel: [phone] Referring Provider: Flaca Williamson, [address] [place] [address], [address] . tel: [facility], [address], [place], [place], [address] , tel: [phone] [facility] Dizziness and giddinessProteinur iaUnspecified vitamin d deficiencyHypoglyc emia Sep-0 6 3 Day Thayer. [address] [place] [address], [id number] , [place]. tel: [phone] Referring Provider: Flaca Williamson, [address] [place] [address], [address] . tel: [facility], [address], [place], [place], [address] , tel: [phone] [facility] Urinary incontinenceDizzin essCephalgia Reilly-0 5201 3 Day Thayer. [address] [place] [address], [id number] , [place]. tel: [phone] Referring Provider: Flaca Williamson, [address] [place] [address], [address] . tel: [facility], [address], [place], [place], [address] , tel: [phone] [facility] DizzinessUrinary incontinence October-2 8 3 Day Thayer. [address] [place] [address], [id number] , . tel: [phone] Referring Provider: Flaca Williamson, [address] [place] [address], [address] . tel:[phone] [facility], [address], [place], [place], [address] , tel: [phone] [facility] ProteinuriaUnspeci fied vitamin d deficiencyEdema Sep- 3 Day Thayer. [address] [place] [address], [id number] , . tel: [phone] Referring Provider: Flaca Williamson, [address] [place] [address], [address] . tel:[phone] [facility], [address], [place], [place], [address] , tel: [phone] [facility] ProteinuriaEdemaEs ophageal refluxVitamin d deficiency Sep- 3 Day Thayer. [address] [place] [address], [id number] , . tel: [phone] Referring Provider: Flaca Williamson, [address] [place] [address], [address] . tel:[phone] [facility], [address], [place], [place], [address] , tel: [phone] [facility] GERD (gastroesophageal reflux disease)Proteinuri aBilateral lower extremity edema Fe- 3 Day Thayer. [address] [place] [address], [id number] , . tel: [phone] Referring Provider: Flaca Williamson, [address] [place] [address], [address] . tel:[phone] Family History Family Member Type Diagnosis Age [...] Source: New Immuniza tion Record Fluzone Quad [id number], split virus, 0.5mL dosage administered Source: New Im munization Record influenza, injectable, quadrivalent, (3 years or older) refused Source: New Immuniza tion Record flu (split) (3 yrs or older) administered Source: Source Unspecified flu (split) (3 yrs or older) administered Source: Other Provider Payers Payer name Insurance type Covered democrat ID Authoriza tion(s) [place] OUT OF [place] BL [id number] [facility] [id number] [facility] [id number] Social History Type Description Quantity Date Captured [...] guidance, and counseling completed Referral Referred To: [address] [place] [address] [place], [phone] Ordered: Screening mammography of both breasts Appointment date/timeframe: 09/07/2018 ordered Future Order: Lab Order Vitamin B12 ([id number]), Collected on: , Sent on: Sent Future Order: Lab Order Folic Ac id (Folate), Serum ([id number]), Collected on: , Sent on: Sent Future Order: Lab Order Sed rate ([id number]), Collected on: , Sent on: Sent Future Order: Lab Order CBC AUTO DIFF ([id number]), Collected on: , Sent on: Sent Future Order: Lab Order Uric Aci d ([id number]), Collected on: , Sent on: Sent History [...] 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
--- NOTE | ~2025-02-01 | MM_ITS ---
EXAMINATION: MM screening navarro BI w tomy HISTORY: Screening mammogram TECHNIQUE: Craniocaudal and mediolateral oblique 3-D tomosynthesis images were obtained and synthetic 2-D images were generated. CAD analysis was submitted and interpreted. COMPARISON: 10/12/2022, 08/20/2021 BREAST PARENCHYMAL COMPOSITION:Not Dense. The breasts are almost entirely fatty FINDINGS: No suspicious mass, calcification, or architectural distortion are identified in either breast to suggest malignancy. There has been no suspicious interval change. IMPRESSION: No mammographic evidence of malignancy. Recommend routine screening mammography in one year. BI-RADS Category 1: Negative Reviewed, dictated and finalized at location .
--- OUTSIDE RECORDS SUMMARY | 2025-02-01 07:20 | XMS_ITS | Clinical Summary ---
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 Gender Identity Not on file Sexual Orientation Not on file Plan of Treatment Health Maintenance Due Date Last Done Comments Hepatitis C Virus (HCV) Screening 1966 TdaP Immunization 1966 Hepatitis B Immunization (1 of 3 - 19+ 3-dose series) 1985 Pap Smear 1987 Cervical Cancer Screening (CCS) 1996 HPV/Cotest 1996 Cologuard 2011 Colonoscopy 2011 Colorectal Cancer Screening 2011 Immunochemical Fecal Occult Blood 2011 Pneumococcal Immunization (5 0+ years) (1 of 1 - PCV) 2016 Zoster Immunization (1 of 2) 2016 SARS-COV-2 Immunization (3 - season) 2024 12/04/2020, 11/14/2020 Influenza Immunization (#1) 02/11/202506/15, 04/13/2013 Respiratory Syncytial Virus (RSV) Immunization (Adult) [...]
--- OUTSIDE RECORDS SUMMARY | 2025-02-01 07:20 | XMS_ITS | Encounter Summary ---
Author Organization [facility] Address [address] [place] [address] Care Team Providers Care Events Intern Name Role Phone Unavailable Primary Care Provider Unavailabl e Encounter Details Date Type Department Care Team (Late st Contact Info) Description 10/11/2006 Inpatient Historical HIS [facility] Bel Lezama MD [address] [facility] [address] [place] [address] Aida Johnson MD [address] [facility] [address] [address] Diffuse Cystic Mastopathy (Primary Dx) Social History Tobacco Use Types Packs/Day Years Used Date Smoking Tobacco: Never Assessed Comments Unknown Sex and Gender Information Value Date Recorded Sex Assigned at Not on file Legal Sex Female 3:34 AM CANOE MAKER Gender Identity Not on file Sexual Orientation Not on file documented as of this encounter Plan of Treatment Not on file documented as of this encounter Visit Diagnoses Diagnosis Diffuse cystic mastopathy- Primary documented in this encounter
--- OUTSIDE RECORDS SUMMARY | 2025-02-01 07:20 | XMS_ITS | Patient Health Record ---
Author Organization [facility] Address [address] [place], [place] [address] Care Team Providers Care Winderman Name Role Phone BAKARI CARLSON Unavailable [phone] Flaca Bernstein Unavailable Unavailable Reason For Referral No Information Medications Medication SIG (Take, Route, Frequency, Duration) Notes Start Date End Date Status nabumetone 500 MG Oral Tablet [Relafen] ORAL nabumetone 500 MG Oral Tablet [Relafen]Original Medicationnabumetone 500 MG Oral Tablet [Relafen] *Reorder from [employer] for eRx and Interaction Alerts* 4 Active Medrol Dosepak ORAL Medrol DosepakOr iginal MedicationMedrol Dosepak *Reorder from [employer] for eRx and Interaction Alerts* 5 Active betamethasone 0.5 MG/ML / clotrimazole 10 MG/ML Topical Cream [Lotrisone] CUTANEOUS betamethasone 0.5 MG/ML / clotrimazole 10 MG/ML Topical Cream [Lotrisone]Original Medicationbetamethasone 0.5 MG/ML / clotrimazole 10 MG/ML Topical Cream [Lotrisone] *Reorder from [employer] for eRx and Interacti 5 Active Plan Of Treatment No Information Insurance Providers Payer Name Payer Address Payer Phone Subscriber Number Group Number Insured Name Patient Relationship to Insured Coverage Start Date Coverage End Date [facility] [address] [address] [place] [address] [id number] PATEL RUSHING Self - patient is the insured
--- OUTSIDE RECORDS SUMMARY | 2025-02-01 07:20 | XMS_ITS | Clinical Summary ---
Author Organization [facility] Address [address] [place] [address] Care Team Providers Care Parcel Post Delivery Name Role Phone Unavailable Primary Care Provider [...]
--- OUTSIDE RECORDS SUMMARY | 2025-02-01 07:21 | XMS_ITS | Clinical Summary ---
Author Organization [facility] Address [address] [place] [address] Care Team Providers Care Conveyor Mechanic Name Role Phone Flaca Bernstein DO Primary Care Provider [phone] Source Comments [facility],non-owned Affiliates and Associated Physician Practices is amultiple site organization consisting of ambulatory clinics and hospital sitesin [place], [place], [place] and [place]. This disclosure is being madepursuant to the Care Everywhere program and may not contain all information available regarding this patient. Last updated 18.[employer] [facility] Allergies No known active allergies Medications * Be aware that medications may not be up to date on this document. Alwaysverify current medications with the patient. omeprazole (PRILOSEC) 40 MG capsule Take 40 mg by mouth daily before breakfast Active vitamin D, ergocalciferol, (DRISDOL) 77431 UNITS capsule Take 50,000 Units by mouth [...] on file Legal Sex Female 6:[address] INSTALLER Gender Identity Not on file Sexual Orientation Not on file Last Filed Vital Signs Vital Sign Reading Time Taken Comments Blood Pressure 130/74 06/21/2016 10:[address]ER INSTALLER Pulse 86 06/21/2016 10:[address] INSTALLER Temperature 36.2 C (97.2 F) 06/21/2016 10:[address]ER INSTALLER Respiratory Rate 18 06/21/2016 10:[address] INSTALLER Oxygen Saturation 99% 06/21/2016 10:[address]ER INSTALLER Inhaled Oxygen Concentration - - Weight 100.7 kg (222 lb) 06/21/2016 9:[address] INSTALLER Height 149.9 cm (4' 11) 06/21/2016 9:[address]ER INSTALLER Body Mass Index 44.84 06/21/2016 9:[address] INSTALLER Plan of Treatment Health Maintenance Due Date [...] season) 2024 DEPRESSION SCREENING 06/13/2024 INFLUENZA VACCINE (#1) 2025 COLON MONITORING 06/21/2026 06/21/2016, 06/21/2016 COLONOSCOPY [...] ENDOSCOPY, COLON, SCREENING Routine 06/21/2016 9:[address]ER INSTALLER from Last 3 Months or Most Recently Relevant to Health Maintenance Results * ENDOSCOPY, COLON, SCREENING (06/21/2016 9:[address]ER INSTALLER) Report Endoscopy POC __ _ Patient Name: [...] malignant neoplasm of colon CPT copyright 2015 [employer]. All rights reserved. The codes documented in this report are preliminary and upon screen making technician review may be revised to meet current compliance requirements. Ted Carlos MD __ Ted Carlos MD 06/21/2016 10:23:28 AM This report has been signed electronically. Number of Addenda: 0 Note Initiated On: 06/21/2016 9:36 AM [facility] 06/21/2016 9:[address] INSTALLER Ted Carlos MD GI PROCEDURE ORDERABLES Ed ited Result - [place] [address] from Last 3 Months or Most Recently Relevant to Health Maintenance Insurance [facility] Care Teams Conveyor Mechanic Relationship Specialty Start Date End Date Flaca Bernstein DO PCP - General Internal Medicine 06/21/16
--- OUTSIDE RECORDS SUMMARY | 2025-02-01 07:21 | XMS_ITS | Clinical Summary ---
Author Organization [facility] Address [address] [place] [address] Care Team Providers Care Hydraulic Boom Operator Name Role Phone Unavailable Primary Care [...] on file Legal Sex Female 3:34 AM CORE MANAGER Gender Identity Not on file Sexual Orientation Not on file Last Filed Vital Signs Vital Sign Reading Time Taken Comments Blood Pressure 112/80 08/02/2018 11:22 AM CORE MANAGER Pulse - - Temperature - - Respiratory Rate - - Oxygen Saturation - - Inhaled Oxygen Concentration - - Weight 99.5 kg (219 lb 6.4 oz) 08/02/2018 11:22 AM CORE MANAGER Height 149.9 cm (4' 11) 08/02/2018 11:22 AM CORE MANAGER Body Mass Index 44.31 08/02/2018 11:22 AM CORE MANAGER Plan of Treatment Health Maintenance Due [...]
== END 2025-02-01 07:17 | disposition home or self-care (01) ==
LOC: ANHFOHIMG 07:18
PROVIDERS: PCP Family Medicine; Visit Provider Nurse Practitioner
DX: Z12.31 Encounter for screening mammogram for malignant neoplasm of breast (principal)
CPT/HCPCS: 77063; 77067

== ENCOUNTER 2025-02-25 15:22 | Outpatient (CLI) | payer OTHER, SELFPAY ==
--- OUTSIDE RECORDS SUMMARY | 2019-02-13 05:14 | XMS_ITS | Continuity of Care Document ---
Author Organization [facility] Address [address] [place] [address] Phone Care Team Providers Care Commercial Accountant Name Role Phone Flaca Bernstein DO Unavailable Unavailable Allergies, Adverse Reactions, Alerts Substance Reaction Status Criticality No Known Allergies Active No Inform ation Medications Medication Instructions Dosage Effective Dates (start - stop) Status Comments ergocalciferol (vitamin D2) 50,000 unit capsule take 1 capsule by oral route every week 62961 UNITS - Active omeprazole 20 mg capsule,delayed release take 1 capsule by oral route every day before a meal 20 MG - Active Advance Directives Directive Yes / No Effective Date File Name Life Support Not Answered N/A N/A Intubation Not Answered N/A N/A Antibiotics Not Answered N/A N/A IV Fluid Support Not Answered N/A N/A Tube Feed Not Answered N/A N/A Other Directive N/A N/A WARNING:The information contained in this section is historical and is provided for information only and does not constitute a legal document or any assurance that the information is still accurate. Please verify the information with the lisa of the legal document before using it for clinical purposes. Encounters Encounter Description Practice Location Reason(s) For Visit Diagnoses Date Provider Providers Copied on Encounter [facility], [address], [place], [place], [address] , [place] tel: [phone] [facility] No Information Sep-0 3-201 9 Day Thayer. [address] [place], [place], [id number] , [place]. tel: [phone] [facility] [address], [place], [place], [address] , tel: [phone] [facility] No Information 9 Tenzin Jerome. [address] [place] [address], [address], . tel: [phone] [facility], [address], [place], [place], [address] , tel: [phone] [facility] Chronic Conditions (chief complaint) Body mass index (BMI) 45.0-49.9, adultMorbid (severe) obesity due to excess caloriesVitamin D deficiency, unspecifiedGERD without esophagitisPrediab etesMild episode of recurrent major depressive disorderEncntr screen mammogram for malignant neoplasm of breast 9 Jovani Joyce. [address] [place] [address], [id number] , [place]. tel: [phone] Referring Provider: Flaca Williamson, [address] [place] [address], [address] . tel:[phone] [facility], [address], [place], [place], [address] , tel: [phone] [facility] Morbid (severe) obesity due to excess caloriesVertigoVit ferguson D deficiency, unspecifiedDaytime somnolence 8 Day Thayer. [address] [place] [address], [id number] , [place]. tel: [phone] Referring Provider: Flaca Williamson, [address] [place] [address], [address] . tel:[phone] [facility], [address], [place], [place], [address] , tel: [phone] [facility] Morbid (severe) obesity due to excess caloriesVitamin D deficiency, unspecifiedDaytime somnolenceAnxietyB ilateral lower extremity edema 7 Day Thayer. [address] [place] [address], [id number] , . tel: [phone] Referring Provider: Flaca Williamson, [address] [place] [address], [address] . tel:[phone] [facility], [address], [place], [place], [address] , tel: [phone] [facility] Morbid (severe) obesity due to excess caloriesNumbness and tingling of left lower extremityHistory of foot surgery Tenzin Gaylin. [address] [place] [address], [address], [place]. tel: [phone] Referring Provider: Flaca Williamson, [address] [place] [address], [address] . tel:[phone] [facility], [address], [place], [place], [address] , tel: [phone] [facility] Shortness of breath Dya Thayer. [address] [place] [address], [id number] , [place]. tel: [phone] [facility], [address], [place], [place], [address] , tel: [phone] [facility] Morbid (severe) obesity due to excess caloriesBody mass index (BMI) 40.0-44.9, adultVitamin D deficiency, unspecifiedDaytime somnolence Day Thayer. [address] [place] [address], [id number] , [place]. tel: [phone] [facility], [address], [place], [place], [address] , tel: [phone] [facility] Body mass index (BMI) 40.0-44.9, adultMorbid (severe) obesity due to excess caloriesVitamin D deficiency, unspecifiedLower respiratory infection (e.g., bronchitis, pneumonia, pneumonitis, pulmonitis)Daytime somnolenceEncntr screen mammogram for malignant neoplasm of breastSleep apnea in adult 7 Day Thayer. [address] [place] [address], [id number] , [place]. tel: [phone] Referring Provider: Flaca Williamson, [address] [place] [address], [address] . tel:[phone] [facility], [address], [place], [place], [address] , tel: [phone] [facility] Vitamin D deficiency, unspecifiedMorbid obesity due to excess caloriesAnxietyUri nary frequencyScreening for malignant neoplasm of breast 6 Day Thayer. [address] [place] [address], [id number] , [place]. tel: [phone] Referring Provider: Flaca Williamson, [address] [place] [address], [place], [address] . tel:[phone] [facility], [address], [place], [place], [address] , [place] tel: [phone] [facility] Vitamin D deficiency, unspecifiedMorbid obesity due to excess calories 6 Day Thayer. [address] [place] [address], [id number] , [place]. tel: [phone] Referring Provider: Flaca Williamson, [address] [place] [address], [place], [address] . tel:[phone] [facility], [address], [place], [place], [address] , [place] tel: [phone] [facility] Daytime somnolenceOther fatigueMorbid obesity due to excess calories 6 Day Thayer. [address] [place] [address] [place], [id number] , [place]. tel: [phone] Referring Provider: Flaca Williamson, [address] [place] [address], [address] . tel: [facility], [address], [place], [place], [address] , tel: [phone] [facility] Unspecified urinary incontinence 0-201 6 Day Laura. [address] [place] [address], [id number] , . tel: [phone] Referring Provider: Flaca Williamson, [address] [place] [address], [address] . tel: [facility], [address], [place], [place], [address] , tel: [phone] [facility] Vitamin D deficiency, unspecifiedSnoring 1 4-201 5 Day Laura. [address] [place] [address], [id number] , [place]. tel: [phone] Referring Provider: Flaca Williamson, [address] [place] [address], [address] . tel: [facility], [address], [place], [address] , tel: [phone] [facility] Vitamin D deficiency, unspecifiedPain in left finger(s)Menopausa l and female climacteric statesSnoring 0 9-201 5 Day Thayer. [address] [place] [address], [id number] , [place]. tel: [phone] Referring Provider: Flaca Williamson, [address] [place] [address], [address] . tel: [facility], [address], [place], [place], [address] , tel: [phone] [facility] Pain in finger 5-201 5 Day Laura. [address] [place] [address], [id number] , [place]. tel: [phone] [facility], [address], [place], [place], [address] , [place] tel: [phone] [facility] Pain in finger 5 Day Thayer. [address] [place] [address], [address] , [place]. tel: [phone] [facility], [address], [place], [place], [address] , [place] tel: [phone] [facility] ObesityUnspecified vitamin d deficiencyRouoh[facility] medical exam 5 Day Thayer. [address] [place] [address], [id number] , [place]. tel: [phone] Referring Provider: Flaca Williamson, [address] [place] [address], [address] . tel: [facility], [address], [place], [place], [address] , [place] tel: [phone] [facility] ObesityAbnormal mammogramFollow-up fracture care for healing fractureUnspecifie d vitamin d deficiency Day Thayer. [address] [place] [address], [id number] , [place]. tel: [phone] Referring Provider: Flaca Williamson, [address] [place] [address], [address] . tel: [facility], [address], [place], [place], [address] , [place] tel: [phone] [facility] Proteinuria 5 Day Thayer. [address] [place] [address], [id number] , [place]. tel: [phone] Referring Provider: Flaca Williamson, [address] [place] [address], [address] . tel: [facility], [address], [place], [address] , [place] tel: [phone] [facility] Follow-up fracture care for healing fractureAbnormal mammogramUnspecifi ed vitamin d deficiencyMenopaus al or female climacteric statesObesity 4 Day Thayer. [address] [place] [address], [id number] , [place]. tel: [phone] Referring Provider: Flaca Williamson, [address] [place] [address], [place], [address] . tel: [facility], [address], [place], [address] , [place] tel: [phone] [facility] Routine medical examPrediabetes 4 Day Thayer. [address] [place] [address], [id number] , [place]. tel: [phone] Referring Provider: Flaca Williamson, [address] [place] [address], [place], [address] . tel: [facility], [address], [place], [place], [address] , [place] tel: [phone] [facility] Abdominal crampingProteinuri aUnspecified vitamin d deficiencyMenopaus al or female climacteric states 4 aDy Thayer. [address] [place] [address], [id number] , [place]. tel: [phone] Referring Provider: Flaca Williamson, [address] [place] [address], [place], [address] . tel:[phone] [facility], [address], [place], [place], [address] , [place] tel: [phone] [facility] Unspecified vitamin d deficiencyDizzines sHot flashes 3 Day Thayer. [address] [place] [address], [id number] , [place]. tel: [phone] Referring Provider: Flaca Williamson, [address] [place] [address], [place], [address] . tel: [facility], [address], [place], [place], [address] , tel: [phone] [facility] Dizziness Feb-1 1 3 Day Thayer. [address] [place] [address], [id number] , . tel: [phone] Referring Provider: Flaca Williamson, [address] [place] [address], [address] . tel: [facility], [address], [place], [place], [address] , tel: [phone] [facility] Dizziness and giddinessProteinur iaUnspecified vitamin d deficiencyHypoglyc emia Sep-0 6 3 Day Thayer. [address] [place] [address], [id number] , [place]. tel: [phone] Referring Provider: Flaca Williamson, [address] [place] [address], [address] . tel: [facility], [address], [place], [place], [address] , tel: [phone] [facility] Urinary incontinenceDizzin essCephalgia Reilly-0 5201 3 Day Thayer. [address] [place] [address], [id number] , [place]. tel: [phone] Referring Provider: Flaca Williamson, [address] [place] [address], [address] . tel: [facility], [address], [place], [place], [address] , tel: [phone] [facility] DizzinessUrinary incontinence October-2 8 3 Day Thayer. [address] [place] [address], [id number] , . tel: [phone] Referring Provider: Flaca Williamson, [address] [place] [address], [address] . tel:[phone] [facility], [address], [place], [address] , tel: [phone] [facility] ProteinuriaUnspeci fied vitamin d deficiencyEdema Sep- 3 Day Thayer. [address] [place] [address], [id number] , . tel: [phone] Referring Provider: Flaca Williamson, [address] [place] [address], [address] . tel:[phone] [facility], [address], [place], [place], [address] , tel: [phone] [facility] ProteinuriaEdemaEs ophageal refluxVitamin d deficiency Sep- 3 Day Thayer. [address] [place] [address], [id number] , . tel: [phone] Referring Provider: Flaca Williamson, [address] [place] [address], [address] . tel:[phone] [facility], [address], [place], [place], [address] , tel: [phone] [facility] GERD (gastroesophageal reflux disease)Proteinuri aBilateral lower extremity edema Fe- 3 Day Thayer. [address] [place] [address], [id number] , . tel: [phone] Referring Provider: Flaca Williamson, [address] [place] [address], [address] . tel:[phone] Family History Family Member Type Diagnosis Age At Onset Mother Problem (finding) hypertension 65 Sister Problem (finding) healthy Father Problem (finding) Mitral valve p rolapse (Cause Of ) Maternal grandmother Problem (finding) Family hi story unknown (Cause Of ) 86 Father Problem (finding) Mother Problem (finding) diabetes melli tus in first degree relative Immunizations Vaccine Date Status Comments Fluzone Quad, split virus, 0.5mL dosage administered Source: New Immuniza tion Record Fluzone Quad [id number], split virus, 0.5mL dosage administered Source: New Im munization Record influenza, injectable, quadrivalent, (3 years or older) refused Source: New Immuniza tion Record flu (split) (3 yrs or older) administered Source: Source Unspecified flu (split) (3 yrs or older) administered Source: Other Provider Payers Payer name Insurance type Covered republican ID Authoriza tion(s) [place] OUT OF [place] BL [id number] [facility] [id number] [facility] [id number] Social History Type Description Quantity Date Captured Comments Alcohol Use Details Unknown Caffeine Use Details Unknown Tobacco Use Status No Information Smoking Status No Information Sex Female Gender Identity Female Chief Complaint And Reason For Visit No Information Reason For Referral Reason For Referral No Information Plan Of Treatment Date Type Action Status Goal Dietary manageme nt education, guidance, and counseling completed Referral Referred To: [address] [place] [address] [place], [id number] Ordered: Screening mammography of both breasts Appointment date/timeframe: 09/07/2018 ordered Future Order: Lab Order Vitamin B12 ([id number]), Collected on: , Sent on: Sent Future Order: Lab Order Folic Ac id (Folate), Serum ([id number]), Collected on: , Sent on: Sent Future Order: Lab Order Sed rate ([id number]), Collected on: , Sent on: Sent Future Order: Lab Order CBC AUTO DIFF ([id number]), Collected on: , Sent on: Sent Future Order: Lab Order Uric Aci d ([id number]), Collected on: , Sent on: Sent History Of Present Illness Encounter Date Complaint History Of Prese nt Illness Chronic Conditions *See Chronic Conditions HPI Functional Status Date Functional Assessmen t No Information Instructions Date Instruction Additional Infor rosanne Continue walking yuri quently.Be sure to make healthy dietary choices to help prevent diabetes.Follow up again with Dr. Bernstein again in 6 months. Related to Morbid (severe) obesity due to excess calories We will refill your vitamin D today.This is likely contributing to your fatigue as well as working nights.Be sure to restart this medication. Related to Vitamin D deficiency, unspecified We will check your h emoglobin A1c today. Related to Prediabetes Continue your omepra zole as prescribed.I will obtain your office notes from Dr. Carlos. 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 Related to Mild episode of recurrent major depressive disorder Dietary management e ducation, guidance, and counseling Related to Body mass index (BMI) 45.0-49.9, adult Medication management Giving encouragement to exercise Related to Body mass index (BMI) 45.0-49.9, adult Assessments Type Assessment Date No Information Patient Care Teams Name Effective Dates (start - stop) Status Members No Information
--- OUTSIDE RECORDS SUMMARY | 2025-02-25 18:12 | XMS_ITS | Encounter Summary ---
Author Organization [facility] Address [address] [place] [address] Care Team Providers Care Boiler Setter Name Role Phone Unavailable Primary Care Provider Unavailabl e Encounter Details Date Type Department Care Team (Late st Contact Info) Description 10/11/2006 Inpatient Historical HIS [facility] Bel Lezama MD [address] [facility] [address] [place] [address] Aida Johnson MD [address] [facility] [address] [address] Diffuse Cystic Mastopathy (Primary Dx) Social History Tobacco Use Types Packs/Day Years Used Date Smoking Tobacco: Never Assessed Comments Unknown Sex and Gender Information Value Date Recorded Sex Assigned at Not on file Legal Sex Female 3:34 AM 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
--- OUTSIDE RECORDS SUMMARY | 2025-02-25 18:12 | XMS_ITS | Clinical Summary ---
Author Organization [facility] Address [address] [place] [address] Care Team Providers Care Acid Treater Name Role Phone Flaca Bernstein DO Primary Care Provider [phone] Source Comments [facility],non-owned Affiliates and Associated Physician Practices is amultiple site organization consisting of ambulatory clinics and hospital sitesin [place], [place], [place] and [place]. This disclosure is being madepursuant to the Care Everywhere program and may not contain all information available regarding this patient. Last updated 18.UR [facility] Allergies No known active allergies Medications * Be aware that medications may not be up to date on this document. Alwaysverify current medications with the patient. omeprazole (PRILOSEC) 40 MG capsule Take 40 mg by mouth daily before breakfast Active vitamin D, ergocalciferol, (DRISDOL) 13214 UNITS capsule Take 50,000 Units by mouth [...] on file Legal Sex Female 6:07 AM SLEEP MANAGER Gender Identity Not on file Sexual Orientation Not on file Last Filed Vital Signs Vital Sign Reading Time Taken Comments Blood Pressure 130/74 06/21/2016 10:45 AM SLEEP MANAGER Pulse 86 06/21/2016 10:45 AM SLEEP MANAGER Temperature 36.2 C (97.2 F) 06/21/2016 10:31 AM SLEEP MANAGER Respiratory Rate 18 06/21/2016 10:45 AM SLEEP MANAGER Oxygen Saturation 99% 06/21/2016 10:45 AM SLEEP MANAGER Inhaled Oxygen Concentration - - Weight 100.7 kg (222 lb) 06/21/2016 9:26 AM SLEEP MANAGER Height 149.9 cm (4' 11) 06/21/2016 9:26 AM SLEEP MANAGER Body Mass Index 44.84 06/21/2016 9:26 AM SLEEP MANAGER Plan of Treatment Health Maintenance Due [...] 2016 ZOSTER VACCINE (1 of 2) 2016 DEPRESSION SCREENING 06/13/2024 COVID-19 VACCINE (1 - 2023-2 5 season) 2025 INFLUENZA VACCINE (#1) 2025 COLON MONITORING 06/21/2026 [...] ENDOSCOPY, COLON, SCREENING Routine 06/21/2016 9:36 AM SLEEP MANAGER from Last 3 Months or Most Recently Relevant to Health Maintenance Results * ENDOSCOPY, COLON, SCREENING (06/21/2016 9:36 AM SLEEP MANAGER) Report Endoscopy POC __ _ Patient [...] malignant neoplasm of colon CPT copyright 2015 [employer]. All rights reserved. The codes documented in this report are preliminary and upon product assurance engineer review may be revised to meet current compliance requirements. Ted Carlos MD __ Ted Carlos MD 06/21/2016 10:23:28 AM This report has been signed electronically. Number of Addenda: 0 Note Initiated On: 06/21/2016 9:36 AM [facility] ENDOSCOPY 06/21/2016 9:36 AM SLEEP MANAGER Ted Carlos MD GI PROCEDURE ORDERABLES Ed ited Result - [place] [address] from Last 3 Months or Most Recently Relevant to Health Maintenance [facility] Care Teams Acid Treater Relationship Specialty Start Date End Date Flaca Bernstein DO PCP - General Internal Medicine 06/21/16
--- OUTSIDE RECORDS SUMMARY | 2025-02-25 18:12 | XMS_ITS | Patient Health Record ---
Author Organization [facility] Address [address] [place], [place] [id number] Care Team Providers Care Cuff Setter Lockstitch Name Role Phone BAKARI CARLSON Unavailable [phone] Flaca Bernstein Unavailable Unavailable Reason For Referral No Information Medications Medication SIG (Take, Route, Frequency, Duration) Notes Start Date End Date Status nabumetone 500 MG Oral Tablet [Relafen] ORAL nabumetone 500 MG Oral Tablet [Relafen]Original Medicationnabumetone 500 MG Oral Tablet [Relafen] *Reorder from [employer] [facility] for eRx and Interaction Alerts* 4 Active Medrol Dosepak ORAL Medrol DosepakOr iginal MedicationMedrol Dosepak *Reorder from [employer] for eRx and Interaction Alerts* 5 Active betamethasone 0.5 MG/ML / clotrimazole 10 MG/ML Topical Cream [Lotrisone] CUTANEOUS betamethasone 0.5 MG/ML / clotrimazole 10 MG/ML Topical Cream [Lotrisone]Original Medicationbetamethasone 0.5 MG/ML / clotrimazole 10 MG/ML Topical Cream [Lotrisone] *Reorder from [employer] for eRx and Interacti 5 Active Plan Of Treatment No Information Insurance Providers Payer Name Payer Address Payer Phone Subscriber Number Group Number Insured Name Patient Relationship to Insured Coverage Start Date Coverage End Date [facility] [address] [address] [place] [address] [id number] PATEL RUSHING Self - patient is the insured
--- OUTSIDE RECORDS SUMMARY | 2025-02-25 18:12 | XMS_ITS | Clinical Summary ---
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
--- OUTSIDE RECORDS SUMMARY | 2025-02-25 18:12 | XMS_ITS | Clinical Summary ---
Author Organization [facility] Address [address] [place] [address] Care Team Providers Care In School Suspension Aide Name Role Phone Unavailable Primary Care Provider [...] on file Legal Sex Female 3:34 AM ACUTE CARE NURSING ASSISTANT Gender Identity Not on file Sexual Orientation Not on file Last Filed Vital Signs Vital Sign Reading Time Taken Comments Blood Pressure 112/80 08/02/2018 11:22 AM ACUTE CARE NURSING ASSISTANT Pulse - - Temperature - - Respiratory Rate - - Oxygen Saturation - - Inhaled Oxygen Concentration - - Weight 99.5 kg (219 lb 6.4 oz) 08/02/2018 11:22 AM ACUTE CARE NURSING ASSISTANT Height 149.9 cm (4' 11) 08/02/2018 11:22 AM ACUTE CARE NURSING ASSISTANT Body Mass Index 44.31 08/02/2018 11:22 AM ACUTE CARE NURSING ASSISTANT Plan of Treatment Health Maintenance Due Date [...]
--- OUTSIDE RECORDS SUMMARY | 2025-02-25 18:12 | XMS_ITS | Clinical Summary ---
Author Organization [facility] Address [address] [place] [id number] Care Team Providers Care Milk Truck Driver Name Role Phone Unavailable Primary Care [...] Vaccines (1 of 2) 2016 COVID-19 Vaccine ( - 2023-2 5 season) 2025 Meningococcal B Vaccine Aged Out No l onger eligible based on patient's age to complete this topic Meningococcal Vaccine Aged Out No seng sadie eligible based on patient's age to complete this topic RSV Immunizations Under 20 Months Aged Out No longer eligible based on patient's age to complete this topic
[2025-02-25 18:47] LABS: Anion Gap 7 mmol/L (4-12); Blood Urea Nitrogen 17 mg/dL (7-17); Calcium 9.2 mg/dL (8.4-10.2); Carbon Dioxide 27 mmol/L (22-30); Chloride 107 mmol/L (98-107); Estimated Glomerular Filt Rate 46; Glucose 101 mg/dL (65-110); Potassium 3.4 mmol/L (3.4-5.0); Sodium 141 mmol/L (137-145)
[2025-02-25 18:52] LABS: Hematocrit 43.4 % (37.0-47.0); Hemoglobin 13.4 g/dL (12.0-15.0); Mean Corpuscular HGB Conc 30.9 g/dl (32-36); Mean Corpuscular Hemoglobin 26.3 pg (26-34); Mean Corpuscular Volume 85.1 fl (80-100); Platelet Count Result 268 k/mm3 (150-375); Red Blood Count 5.10 M/mm3 (4.2-5.4); White Blood Count 8.3 K/mm3 (4.5-10.0)
[2025-02-25 19:19] LABS: Thyroid Stimulating Hormone 1.970 uIU/mL (0.465-4.680)
== END 2025-02-25 15:23 | disposition home or self-care (01) ==
LOC: ANHGOSHLAB 15:23
PROVIDERS: PCP Family Medicine; Visit Provider Family Medicine
DX: E78.5 Hyperlipidemia, unspecified (principal); E55.9 Vitamin D deficiency, unspecified; Z79.899 Other long term (current) drug therapy; E66.9 Obesity, unspecified; R53.83 Other fatigue
CPT/HCPCS: 36415; 80048; 82306; 84443; 85027